=== PATIENT | female | born 1940 | race Caucasian/White ===

== ENCOUNTER 2018-11-21 05:49 | Observation (INO) ==
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
--- NOTE | 2018-11-21 07:32 | Diag Imaging Result Doc PS360 ---
CT HEAD/C-SPINE W/O CONTRAST - 11/21/2018 INDICATION: fell asleep and fell off toilet COMPARISON: 05/19/2018 FINDINGS: Head CT: There is a large left supraorbital scalp hematoma. No intracranial mass or hemorrhage. No skull fractures. The sinuses are clear. Cervical spine: Alignment is anatomic. Vertebral body heights are preserved. There is advanced multilevel disc degeneration with disc space narrowing. This is stable from prior. No fracture or subluxation. IMPRESSION: 1. Large left supraorbital forehead scalp hematoma. No intracranial injury. 2. Advanced cervical spondylosis. No injury to the cervical spine. This exam was performed using automated exposure control, adjustment of mA or kV according to patient size, and/or use of iterative reconstruction technique Electronically signed by Piter Ward 11/21/2018 7:30 AM
[2018-11-21] MEDS ORDERED: NS 2,000 ML MISC PRN (08:09)
--- NOTE | 2018-11-21 15:51 | Diag Imaging Result Doc PS360 ---
CT HEAD W/O CONTRAST - 11/21/2018 3:37 PM INDICATION: ams COMPARISON: 6:37 AM FINDINGS: There is no change from prior. No intracranial hemorrhage. IMPRESSION: No change from prior. This exam was performed using automated exposure control, adjustment of mA or kV according to patient size, and/or use of iterative reconstruction technique Electronically signed by Piter Ward 11/21/2018 3:48 PM
[2018-11-21 16:01] LABS: ALLEN TEST YES; BLOOD TYPE ARTERIAL; HCO3-(ACT) 31.1 mmoll (20.0-26.0); METHB 0.7 % (0.0-1.5); O2(CT) 14.8 mL/dL (15.0-23.0); O2HB 93.7 % (95.0-99.0); PCO2(98.6) 49 mmHg (35-45); PO2(98.6) 71 mmHg (60-100); SAMPLE BLOOD; SAO2 94.6 % (95.0-100.0); THB 11.2 g/dL (11.5-17.4); pH(98.6) 7.44 (7.35-7.45)
[2018-11-21 16:02] LABS: MODALITY ROOM AIR
[2018-11-21 17:10] LABS: BASO# 0.04 X1000 (0.0-0.2); BASO% 0.7 % (0.0-0.8); EOS# 0.15 X1000 (0.0-0.7); EOS% 2.6 % (0.0-10.0); HEMOGLOBIN 11.4 g/dL (12.0-16.0); LYMPH# 0.91 X1000 (1.2-3.4); LYMPH% 15.9 % (20.5-51.1); MCH 30.6 PG (27-31); MCHC 31.7 g/dL (33-37); MCV 96.5 FL (81-99); MONO% 10.5 % (1.7-9.3); MPV 9.4 FL (7.4-10.4); NEUT# 4.03 X1000 (1.4-6.5); NEUT% 70.3 % (42.2-75.2); PLT 129 X1000 (130-400); RBC 3.73 XMIL (4.2-5.4); RDW 13.4 % (11.5-14.5); WBC 5.73 X1000 (4.8-10.8)
--- NOTE | 2018-11-21 17:32 | Diag Imaging Result Doc PS360 ---
CHEST-PORTABLE - 11/21/2018 INDICATION: ams COMPARISON: 05/25/2018 FINDINGS: Lung volumes are much lower. There is some nonspecific central infiltrates bilaterally. Heart size remains top normal. IMPRESSION: Severely low lung volumes. Nonspecific central infiltrates. Electronically signed by Piter Ward 11/21/2018 5:30 PM
[2018-11-21 17:44] LABS: CALCIUM 7.9 mg/dL (8.8-10.2); POTASSIUM 3.7 mmol/L (3.5-5.1)
[2018-11-21] MEDS ORDERED: D50W SYRINGE ONE (18:03)
[2018-11-21] MEDS ORDERED: D50W SYRINGE IV ONE (18:25)
[2018-11-21] MEDS ORDERED: TYLENOL PO PRN (18:43)
[2018-11-21] MEDS ORDERED: ZOFRAN IV PRN (18:43)
[2018-11-21] MEDS ORDERED: NS 500 ML IV ONE (18:45)
[2018-11-21] MEDS ORDERED: D50W SYRINGE IV PRN (18:49)
[2018-11-21 19:13] LABS: BASO# 0.03 X1000 (0.0-0.2); BASO% 0.6 % (0.0-0.8); EOS# 0.14 X1000 (0.0-0.7); EOS% 2.6 % (0.0-10.0); HEMATOCRIT 38.8 % (37.0-47.0); IMM GRAN# 0.02 X1000 (0.0-0.04); IMM GRAN% 0.4 % (0.0-0.5); LYMPH# 0.95 X1000 (1.2-3.4); LYMPH% 17.6 % (20.5-51.1); MCH 30.4 PG (27-31); MCHC 30.9 g/dL (33-37); MCV 98.2 FL (81-99); MONO% 11.1 % (1.7-9.3); MPV 9.7 FL (7.4-10.4); NEUT# 3.66 X1000 (1.4-6.5); NEUT% 67.7 % (42.2-75.2); PLT 113 X1000 (130-400); RBC 3.95 XMIL (4.2-5.4); RDW 13.3 % (11.5-14.5)
[2018-11-21 19:27] LABS: INR 0.98; PROTIME 13.8 Seconds (11.0-16.0)
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
[2018-11-21 19:45] LABS: ALB/GLOB RATIO 1.2; ALBUMIN 3.6 g/dL (3.5-5.0); CALCIUM 7.9 mg/dL (8.8-10.2); CREATININE 3.2 mg/dL (0.5-0.9); MAGNESIUM 2.2 mg/dL (1.5-2.7); POTASSIUM 3.8 mmol/L (3.5-5.1); TOTAL BILIRUBIN 0.38 mg/dL (0.20-1.00); TOTAL PROTEIN 6.5 g/dL (6.3-8.3)
[2018-11-22] MEDS: MIRALAX PO SCH ×4 (00:24→21:36)
[2018-11-22] MEDS: COREG PO SCH ×3 (00:24→21:27)
[2018-11-22] MEDS: SYNTHROID PO SCH (06:23)
[2018-11-22 07:33] LABS: HEMOGLOBIN A1C 5.3 % (4.8-6.0)
[2018-11-22 07:55] LABS: FREE T4 1.16 ng/dL (0.93-1.70)
[2018-11-22] MEDS ORDERED: LOZOL PO SCH (09:00)
[2018-11-22] MEDS ORDERED: ULTRAM PO PRN ×2 (09:20→16:46)
[2018-11-22] MEDS: LOZOL PO SCH (09:28)
[2018-11-22] MEDS: CRESTOR PO SCH (09:29)
[2018-11-22] MEDS: ZYLOPRIM PO SCH (09:29)
[2018-11-22] MEDS: VESICARE PO SCH (09:29)
[2018-11-22] MEDS: ASPIRIN EC PO SCH (09:29)
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
[2018-11-22] MEDS: ADVAIR 250/50 DISKUS INH SCH ×2 (10:39→19:55)
[2018-11-22] MEDS ORDERED: CALMOSEPTINE OINTMENT TOP PRN (13:15)
[2018-11-22] MEDS: FLONASE NAS SCH (15:10)
--- NOTE | 2018-11-22 17:10 | PROGRESS NOTE ---
DATE: 11/21/2018 SUBJECTIVE: She says she just does not feel good. The main complaint is the pain from falling and I explained that we admitted her because she was very lethargic following dialysis and did not want to keep her sedated, but she just feels miserable. She is more awake and alert. OBJECTIVE: Temp 97.4 degrees, pulse 69, blood pressure 132/49. Pupils are equal and round. Lungs are clear in all lung jennings. Cardiovascular regular rate without murmur or S3. ASSESSMENT AND PLAN: Her blood sugars have come up, but the last couple were 54 and 86, so I am going to keep her here today. 1. End-stage renal disease. Dialysis Wednesdays and Monday. She did dialyze normally yesterday on Monday. We will plan on dialysis I guess tomorrow morning. 2. Status post fall. No intracranial bleed or injury, but she did have a good amount of ecchymosis. 3. Electrolytes and acid base and anemia appear to be pretty stable. She has had some hypoglycemia so we will make sure this comes up nicely. She is not getting any medication for her blood sugar at this time and I think I will change her now. I am going to continue watch her on pattern sugars and encourage her to eat. She is on a renal diet for pain. I guess I will try and increase the tramadol to 50 mg every 6 hours p.r.n. and see if that helps some. cc: Frank Em MD
[2018-11-22 17:11] LABS: URINE SOURCE CLEAN CATCH
[2018-11-22 17:14] LABS: BILIRUBIN URINE NEGATIVE (NEGATIVE); BLOOD URINE MODERATE (NEGATIVE); COLOR ORANGE; GLUCOSE URINE NEGATIVE (NEGATIVE); KETONE URINE NEGATIVE (NEGATIVE); LEUKOCYTES URINE LARGE (NEGATIVE); NITRITE URINE NEGATIVE (NEGATIVE); PH URINE 6.5; PROTEIN URINE 100 mg/dL (NEGATIVE); TURBIDITY URINE TURBID (CLEAR); UROBILINOGEN URINE 3 mg/dL (NORMAL)
[2018-11-22 17:29] LABS: UR EPITHELIAL CELLS >10 /HPF (<10); URINE BACTERIA 4+ /HPF; URINE RBC 20-40 /HPF (<10); URINE WBC TNTC /HPF (<10)
[2018-11-22 17:34] LABS: URINE CASTS NONE SEEN; URINE CRYSTALS NONE SEEN; URINE SMALL ROUND CELLS TRANS PRESENT; URINE YEAST NONE SEEN
[2018-11-22] MEDS ORDERED: ULTRAM PO SCH (21:00)
[2018-11-23] MEDS ORDERED: NS 2,000 ML MISC PRN (06:11)
[2018-11-23] MEDS ORDERED: TIGHT: 0.2 ML/HR FOR DIALYSIS MISC PRN (06:11)
[2018-11-23] MEDS ORDERED: HEPARIN IV PRN (06:11)
[2018-11-23] MEDS: SYNTHROID PO SCH (06:46)
[2018-11-23 08:03] VITALS: BP 99/54
[2018-11-23 08:06] LABS: CALCIUM 7.8 mg/dL (8.8-10.2); CREATININE 5.8 mg/dL (0.5-0.9); POTASSIUM 4.6 mmol/L (3.5-5.1)
[2018-11-23] MEDS: ADVAIR 250/50 DISKUS INH SCH (08:46)
[2018-11-23] MEDS: MIRALAX PO SCH (13:55)
[2018-11-23] MEDS: CRESTOR PO SCH (13:59)
[2018-11-23] MEDS: COREG PO SCH (13:59)
[2018-11-23] MEDS: LOZOL PO SCH (13:59)
[2018-11-23] MEDS: ASPIRIN EC PO SCH (13:59)
[2018-11-23] MEDS: VESICARE PO SCH (13:59)
[2018-11-23] MEDS: FLONASE NAS SCH (14:00)
[2018-11-23] MEDS: ZYLOPRIM PO SCH (14:01)
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
--- NOTE | 2018-11-23 15:47 | NEPHROLOGY PROGRESS NOTE ---
DATE: 11/23/2018 SUBJECTIVE: Patient resting in bed. Her ecchymosis has spread to both eyes. OBJECTIVE: Vital Signs: Temperature 97.9 degrees, pulse 65, respiratory rate 16, blood pressure 99/54. Intake and output have not been documented. General: On exam, elderly female resting in bed. She is in no acute distress. HEENT: Normocephalic. She has ecchymoses, bilateral eyes. Continues with hematoma to the left forehead. Her swelling is improved to the left orbit. Neck: Supple. Cardiovascular: Regular rate and rhythm. Pulmonary: Clear. Equal excursion. Abdomen: Soft. : Not inspected. Dialysis assist. Extremities: No clubbing, cyanosis, or edema. Integumentary: Skin is warm and dry otherwise. ASSESSMENT AND PLAN: 1. End-stage renal disease management. Today is her routine dialysis day. She will dialyze on a 2 potassium bath/ultrafiltration to dry weight 4 hour treatment. She can be discharged after her treatment. 2. Status post fall. Bruising with possible concussion. Followed by primary. Dictated by JED Moody for Perry El MD Face to face encounter, data reviewed, discussed with Steffanie Gil on 11/23/18. I agree with the above assessment and plan of care. cc: Perry El MD [facility]
== END 2018-11-23 16:45 | disposition home or self-care (01) ==
LOC: SUPCPDRO → EDIPHOLD 05:49 → ED 05:49 → 3N 22:34
PROVIDERS: ATTEND Emergency Medicine
CPT/HCPCS: 70450; 71010; 71045; 72125; 80048; 80053; 81001; 82607; 82746; 82805; 82948; 83036; 83735; 84439; 84443; 85025; 85610; 85730; 87077; 87088; 87186; 94640; 94761; 96374; 96376; 99285; A9270; G0378; J7030; J7040; XXXXX

== ENCOUNTER 2018-11-25 18:54 | Inpatient (IN) ==
[2018-11-25 19:59] LABS: BASO# 0.03 X1000 (0.0-0.2); BASO% 0.6 % (0.0-0.8); EOS% 4.3 % (0.0-10.0); HEMATOCRIT 34.9 % (37.0-47.0); HEMOGLOBIN 10.8 g/dL (12.0-16.0); LYMPH# 0.95 X1000 (1.2-3.4); LYMPH% 20.2 % (20.5-51.1); MCH 30.1 PG (27-31); MCHC 30.9 g/dL (33-37); MCV 97.2 FL (81-99); MONO# 0.37 X1000 (0.11-0.59); MONO% 7.9 % (1.7-9.3); MPV 9.8 FL (7.4-10.4); NEUT# 3.15 X1000 (1.4-6.5); PLT 117 X1000 (130-400); RBC 3.59 XMIL (4.2-5.4)
--- NOTE | 2018-11-25 19:59 | Diag Imaging Result Doc PS360 ---
EXAM: CHEST-1 VIEW HISTORY: ams TECHNIQUE: Chest single view COMPARISON: None. FINDINGS: The lungs are well expanded. The heart is mildly prominent. The vessels are not distended. There are no infiltrates. No effusion identified. IMPRESSION: Mildly prominent heart, otherwise negative exam Electronically signed by Kevin Villarreal 11/25/2018 7:57 PM
[2018-11-25 20:29] LABS: ALB/GLOB RATIO 1.7; ALBUMIN 3.8 g/dL (3.5-5.0); CALCIUM 8.1 mg/dL (8.8-10.2); MAGNESIUM 2.2 mg/dL (1.5-2.7); PHOSPHORUS 4.2 mg/dL (2.7-4.5); TOTAL BILIRUBIN 0.32 mg/dL (0.20-1.00); TOTAL PROTEIN 6.1 g/dL (6.3-8.3)
--- NOTE | 2018-11-25 20:31 | Diag Imaging Result Doc PS360 ---
EXAM: CT HEAD W/O CONTRAST HISTORY: fall TECHNIQUE: Emergency CT of the head without contrast COMPARISON: 11/21/2018 FINDINGS: Left scalp hematoma is unchanged from the prior exam. No parenchymal hemorrhage. No epidural or subdural hematoma. No subarachnoid hemorrhage. There are chronic microvascular ischemic changes. No mass identified on this noncontrasted exam. No hydrocephalus. No sinus opacification. IMPRESSION: No intracranial hemorrhage. No change. This exam was performed using automated exposure control, adjustment of mA or kV according to patient size, and/or use of iterative reconstruction technique. Electronically signed by Kevin Villarreal 11/25/2018 8:28 PM
[2018-11-25 20:34] LABS: CREATININE 6.1 mg/dL (0.5-0.9)
[2018-11-25] MEDS ORDERED: APRESOLINE IV ONE (20:43)
[2018-11-25 21:21] LABS: URINE SOURCE CATH
[2018-11-25 21:23] LABS: BILIRUBIN URINE NEGATIVE (NEGATIVE); BLOOD URINE SMALL (NEGATIVE); COLOR ORANGE; GLUCOSE URINE NEGATIVE (NEGATIVE); KETONE URINE NEGATIVE (NEGATIVE); LEUKOCYTES URINE LARGE (NEGATIVE); NITRITE URINE NEGATIVE (NEGATIVE); PROTEIN URINE 30 mg/dL (NEGATIVE); TURBIDITY URINE HAZY (CLEAR); UROBILINOGEN URINE 3 mg/dL (NORMAL)
[2018-11-25 21:24] LABS: UR EPITHELIAL CELLS <10 /HPF (<10); URINE BACTERIA 4+ /HPF; URINE RBC <10 /HPF (<10); URINE WBC TNTC /HPF (<10)
[2018-11-25] MEDS ORDERED: LEVAQUIN 500 MG/D5W 500 MG/100 ML IVPB IV ONE (21:40)
--- NOTE | 2018-11-25 21:49 | PROVIDER DOCUMENTATION ---
This chart was entered by Lillie Quintana Scribe, acting as scribe for Rocco Trinh MD. HPI-Neurological Disorder - General Chief Complaint: Altered Mental Status Stated Complaint: DECREASED LOC Time Seen by Provider: 11/25/18 19:08 Source: family, EMS Allergies/Adverse Reactions: Patient Allergies Allergy/AdvReac Type Severity Reaction Status Date / Time Iodinated Contrast- Oral and Allergy Severe ANAPHYLAXIS Verified 11/25/18 20:05 IV Dye Sulfa (Sulfonamide Allergy Intermediate RASH Verified 11/25/18 20:05 Antibiotics) erythromycin base AdvReac Severe AMS Verified 11/25/18 20:05 [Erythromycin Base] Home Medications: Home Medication List Medication Instructions Recorded Confirmed Last Taken Type Carvedilol C.r. [Coreg Cr] 12.5 mg PO BID 11/16/13 11/25/18 11/25/18 History Fluticasone/Salmeterol [Advair 250 mg INH BID 11/16/13 11/25/18 11/25/18 History 250-50 Diskus] ROSUVAstatin [Crestor] 20 mg PO DAILY 11/16/13 11/25/18 11/25/18 History Raloxifene [Evista] 60 mg PO DAILY 11/16/13 11/25/18 11/25/18 History Solifenacin Succinate [Vesicare] 5 mg PO DAILY 11/16/13 11/25/18 11/25/18 H istory Allopurinol 100 mg PO DAILY 04/04/16 11/25/18 11/25/18 History Fluticasone 50 Mcg Nasal Crestline 2 spray ARYAN DAILY 04/04/16 11/25/18 11/25/18 History [Flonase] Indapamide 2.5 mg PO DAILY 04/04/16 11/25/18 11/25/18 History Montelukast Sodium [Singulair] 10 mg PO DAILY 04/04/16 11/25/18 11/25/18 History Docusate Sodium [Colace] 100 mg PO DAILY PRN #20 cap 10/21/17 11/25/18 11/25/18 Rx Aspirin EC 81 mg PO DAILY #30 tablet 05/28/18 11/25/18 11/25/18 Rx Levothyroxine [Synthroid] 50 microgm PO ACB tablet 05/28/18 11/25/18 11/25/18 Rx Polyethylene Glycol 3350 [Miralax] 17 gm PO BID powder, packet 05/28/18 11/25/18 11/25/18 Rx Zolpidem [Ambien] 5 mg PO HS PRN PRN tablet 05/28/18 11/25/18 11/25/18 Rx Tramadol [Ultram] 50 mg PO Q6H PRN PRN 5 Days #20 tab 11/23/18 11/25/18 11/25/18 Rx - History of Present Illness-Neuro Nature of Presenting Problem: 78yof presents to ED by EMS cc AMS today. EMS reports pt fell Monday, was admitted to hospital, discharged on Monday had her HD. Son is at bedside and reports he talked with pt yesterday and she was baseline but today she has AMS. Pt is c/o headache. Pt has hx of DM, HTN,ESRD M-W-F, and CVA. Severity: reports: moderate, severe Timing: reports: still present Context: reports: head injury, falling Character of Altered Mental Status: reports: decreased responsiveness. denies: combative, agitated Any recent trauma/injury?: reports: to head Character of Deficits: reports: new weakness New weakness or altered sensation location:: reports: RUE Associated Symptoms: reports: headache, slurred speech Similar Symptoms Previously?: No Recently seen or treated by another doctor?: Yes Review of Systems - Adult - REVIEW OF SYSTEMS - ADULT Constitutional: reports: see HPI, fatique. denies: chills, fever Eyes: reports: no symptoms reported Ears, Nose, Mouth & Throat: reports: no symptoms reported Cardiovascular: reports: no symptoms reported Respiratory: reports: no symptoms reported Gastrointestinal: reports: no symptoms reported Genitourinary: reports: no symptoms reported Musculoskeletal: reports: no symptoms reported Integumentary: reports: no symptoms reported Neurological: reports: see HPI, headache/migraines, loss of balance, other (altered mental status) Psychiatric: reports: no symptoms reported Endocrine: reports: no symptoms reported Hematologic/Lymphatic: reports: no symptoms reported Allergic/Immunologic: reports: no symptoms reported All Other Systems: Reviewed and Negative Past History - Adult - PAST MEDICAL HISTORY-ADULT Review of Records: reports: Old Records Reviewed, Nursing Assessment Review, Medications Reviewed, Social history reviewed & non-contributory. Major Childhood Illnesses: reports: denies history Cardiovascular: reports: HTN Respiratory: reports: asthma Gastrointestinal: reports: GERD, other Obstetrical/Gynecological: reports: denies history Genitourinary: reports: dialysis, ESRD, kidney disease Musculoskeletal: reports: arthritis, chronic pain, spinal fracture Neurological: reports: CVA Psychiatric: reports: denies history Endocrine/Immune: reports: denies history Other Conditions: reports: denies history - PRIOR SURGERIES/PROCEDURES Surgical/Procedure History: reports: appendectomy, hysterectomy, other (bladder reconstrution) - IMMUNIZATION STATUS Childhood Immunizations: See Nurse Assessment Flu Vaccine: See Nurse Assessment - FAMILY HISTORY Family History: CAD over 55 yo, HTN, other (father AAA) Physical Exam- Neurological - Physical Exam-Neuro Initial Vital Signs Reviewed: Yes General Appearance: negative: anxious, combative Eye Exam: bilateral eye: normal inspection, PERRL HENMT: moist mucous membranes, normal ENT inspection. negative: angioedema Head Injury: contusions (left sikhism and right side of face), ecchymosis (bilateral eyes), raccoon eyes, tenderness (left sikhism) Neck: non-tender. negative: Brudzinski's sign Respiratory: chest non-tender, lungs clear, normal breath sounds, no pleuratic chest pain, no respiratory distress, no accessory muscle use. negative: crackle s, rales, rhonchi Cardiovascular: normal peripheral pulses, regular rate, rhythm, no edema, no gallop, no JVD, no murmur. negative: bradycardia, tachycardia Abdominal Exam: normal bowel sounds, non tender, soft, no organomegaly. negative: rigid, rebound, tenderness Lymphatic: no adenopathy. negative: striations Extremity: normal inspection. negative: deformity extractor puller Exam: normal hearing, PERRL Coordination/Gait: abnormal gait Motor/Sensory: no sensory deficit, no pronator drift, weak motor strength RUE. negative: no motor deficit, weak motor strength LUE, weak motor strength RLE, weak motor strength LLE Neurologic: abnormal extractor puller II-XII, abnormal gait, aphasia, motor weakness. negative: facial droop, focal weakness, sensory deficit Integumentary: warm/dry, other (skin is extremely tanned). negative: diaphoresis, jaundice Psych/Mental Status: negative: anxious Progress - PLAN OF CARE/RESULTS Progress/Plan/Lab Results: Vital Signs - 8 hr 11/25/18 19:05 11/25/18 19:13 11/25/18 19:20 Temperature 98.4 F Pulse Rate 71 70 Respiratory Rate 17 14 Blood Pressure 152/82 O2 Sat by Pulse Oximetry 100 98 96 11/25/18 19:30 11/25/18 19:40 11/25/18 19:55 Temperature Pulse Rate 69 72 77 Respiratory Rate 15 17 17 Blood Pressure O2 Sat by Pulse Oximetry 98 97 100 11/25/18 20:00 11/25/18 20:01 11/25/18 20:03 Temperature Pulse Rate 70 72 70 Respiratory Rate 15 21 15 Blood Pressure 149/79 138/86 O2 Sat by Pulse Oximetry 98 98 97 11/25/18 20:10 11/25/18 20:18 11/25/18 20:20 Temperature Pulse Rate 70 68 67 Respiratory Rate 15 17 15 Blood Pressure 143/83 O2 Sat by Pulse Oximetry 98 98 98 11/25/18 20:30 11/25/18 20:33 11/25/18 20:40 Temperature Pulse Rate 67 66 67 Respiratory Rate 17 14 17 Blood Pressure 147/75 O2 Sat by Pulse Oximetry 100 99 99 Laboratory Results - last 24 hr 11/25/18 11/25/18 11/25/18 19:25 19:25 19:25 WBC 4.70 L RBC 3.59 L Hgb 10.8 L Hct 34.9 L MCV 97.2 MCH 30.1 MCHC 30.9 L RDW Std Deviation 13.0 Plt Count 117 L MPV 9.8 Immature Gran % (Auto) 0.0 Neut % (Auto) 67.0 Lymph % (Auto) 20.2 L Mchenry % (Auto) 7.9 Eos % (Auto) 4.3 Baso % (Auto) 0.6 Immature Gran # (Auto) 0.00 Neut # (Auto) 3.15 Lymph # (Auto) 0.95 L Mchenry # (Auto) 0.37 Eos # (Auto) 0.20 Baso # (Auto) 0.03 Sodium 141 Potassium 5.0 Chloride 99 Carbon Dioxide 29 Anion Gap 13 BUN 30 H Creatinine 6.1 H Estimated GFR/1.73 m2 7 BUN/Creatinine Ratio 5 Glucose 164 H Calculated Osmolality 291 Calcium 8.1 L Phosphorus 4.2 Magnesium 2.2 Total Bilirubin 0.32 AST 24 ALT 16 Alkaline Phosphatase 67 Creatine Kinase 62 Troponin T 0.022 Total Protein 6.1 L Albumin 3.8 Globulin 2.3 Albumin/Globulin Ratio 1.7 Urine Source Urine Color Urine Turbidity Urine pH Ur Specific [place] Urine Protein Ur Glucose (Stick) Ur Ketones (Stick) Urine Blood Urine Nitrite Urine Bilirubin Urobilinogen Dipstick Urine Leukocytes Urine WBC (Auto) Urine RBC (Auto) U Epithel Cells (Auto) Urine Bacteria (Auto) 11/25/18 21:15 WBC RBC Hgb Hct MCV MCH MCHC RDW Std Deviation Plt Count MPV Immature Gran % (Auto) Neut % (Auto) Lymph % (Auto) Mchenry % (Auto) Eos % (Auto) Baso % (Auto) Immature Gran # (Auto) Neut # (Auto) Lymph # (Auto) Mchenry # (Auto) Eos # (Auto) Baso # (Auto) Sodium Potassium Chloride Carbon Dioxide Anion Gap BUN Creatinine Estimated GFR/1.73 m2 BUN/Creatinine Ratio Glucose Calculated Osmolality Calcium Phosphorus Magnesium Total Bilirubin AST ALT Alkaline Phosphatase Creatine Kinase Troponin T Total Protein Albumin Globulin Albumin/Globulin Ratio Urine Source CATH Urine Color ORANGE Urine Turbidity HAZY Urine pH 7.0 Ur Specific [place] 1.000 Urine Protein 30 A Ur Glucose (Stick) NEGATIVE Ur Ketones (Stick) NEGATIVE Urine Blood SMALL A Urine Nitrite NEGATIVE Urine Bilirubin NEGATIVE Urobilinogen Dipstick 3 A Urine Leukocytes LARGE A Urine WBC (Auto) TNTC A Urine RBC (Auto) <10 U Epithel Cells (Auto) <10 Urine Bacteria (Auto) 4+ Orders Category Date Time Status Saline Loc NOW Care 11/25/18 19:07 Active CHEST-1 VIEW [RAD] Stat Exams 11/25/18 19:[address] HEAD W/O CONTRAST [CT] Stat Exams 11/25/18 18:59 Completed CBC WITH ELECTRONIC DIFF [HEME] Stat Lab 11/25/18 19:25 Completed CK PROFILE [SP CHEM] Stat Lab 11/25/18 19:25 Completed COMPREHENSIVE METABOLIC PANEL [CHEM] Stat Lab 11/25/18 19:25 Completed MAGNESIUM [CHEM] Stat Lab 11/25/18 19:25 Completed PHOSPHORUS [CHEM] Stat Lab 11/25/18 19:25 Completed TROPONIN T Stat Lab 11/25/18 19:25 Completed URINALYSIS W/POSS RFLX CULT [URINALYSIS] Stat Lab 11/25/18 21:15 Completed URINE CULTURE [RM] Routine Lab 11/25/18 21:36 Received Hydralazine [Apresoline] Med 11/25/18 20:43 Discontinued 10 mg IV NOW ONE Levofloxacin 500 mg/D5w [Levaquin 500 mg/D5w] Med 11/25/18 21:40 Active 500 mg in 100 ml IV NOW EKG [EKG] Stat Ther 11/25/18 19:07 Ordered A/P: AMS secondary to UTI. Spoke with Dr duckworth and Dr Dawn to admit pt. Result Diagrams: 11/25/18 19:25 11/25/18 19:25 - EKG 1 Time of EKG reading by physician:: 19:20 EKG Read and Signed by:: Rocco Trinh EKG Interpretation (*Must complete 3 of following elements*): Abnormal (possible inferior infarct. age undetermined) Howell: left QRS: LVH (moderate voltage criteria, may be normal variant) - XRAY 1 XRAY: Bilateral XRAY Study: Chest Impression: See EMR Report (IMPRESSION: Mildly prominent heart, otherwise nega tive exam Electronically signed by Kevin Villarreal 11/25/2018 7:57 PM) - CT/MRI 1 CT Study: Head Impression: See EMR Report (IMPRESSION: No intracranial hemorrhage. No change. This exam was performed using automated exposure control, adjustment of mA or kV according to patient size, and/or use of iterative reconstruction technique. Electronically signed by Kevin Villarreal 11/25/2018 8:28 PM) - CONSULTS/PCP/HOSPITALIST Notification #1 *Consult/PCP/Hospitalist*: Dr Duckworth DESPATCHING AND RECEIVING CLERK Time Discussed: 21:41 Consult Disposition: Admit #2 Consult: Dr Dawn Time Discussed: 21:41 Consult Disposition: Admit Departure - Departure Date of Disposition Decision: 11/25/18 Time of Disposition Decision: 21:43 DIAGNOSIS: Altered mental status, UTI (urinary tract infection) Disposition: ADMITTED INPATIENT 09 Certified Medical Emergency: Emergent Condition: Stable Additional Freetext Instructions: We have examined and treated you today on an emergency basis only. This was not a substitute for, or an effort to provide, complete medical care. In most cases, you must let your doctor check you again. Tell your doctor about any new or lasting problems. We cannot recognize and treat all injuries or illnesses in one Emergency Department visit. If you had special tests, such as X-rays or CT scans, will be reviewed by radiologist and will call you if there are any new suggestions Follow up with primary care provider in 1 to 2 days if no improvement. If you do not have a primary care provider, you need to choose one as soon as possible. Take medicines as prescribed. Monitor for any side effects or adverse events from medications. If any side effect, adverse event or rash develops, or if you suspect any other adverse reaction to the medication, then discontinue the medication immediately and contact clinic /PCP or go to the nearest ER. Narcotic meds / sedative meds instruction - patent advised not to drive, operate any machinery or go into water after taking meds as it may impair mental ability to react to the situation in an appropriate manner. Continue other current medicines. Follow up with PCP within 24-48 hours, or s ooner if symptoms worsen or fail to improve. Patient / guardian verbalizes understanding of treatment plan, medication, and side effects and agrees with treatment plan. Patient leaves ER in stable condition and ambulatory state. Return to ER as needed. Discharge instructions reviewed verbally and given to patient in written form. Follow up with primary care provider. Referrals and Follow-Ups: Derian Dawn MD [Primary Care Provider] - - Critical Care Note This patient required my direct & personal management of CC.: No Attestation - Physician/ JG Attestation Patient care was provided by Advanced Practice Provider:: No The physician spent face to face time with patient:: Yes Advanced Practice Provider documentation review:: Supervising physician onsite and consulted in the evaluation and care of this patient. The physician did have a face to face encounter with the patient. - NIH Stroke Scale NIH Type: Initial Evaluation Level of Consciousness: 1-Drowsy, but arousable with minimal stimulation LOC Questions (ask month and age): 1-Answers One Correctly Best Gaze (horizontal eye movement): 0-Normal Visual (use finger movement, counting or visual threat): 0-No Visual Loss Facial Palsy (show teeth or raise eyebrows & close eyes tght: 0-Symmetrical Movement Motor Function-left arm: 0-Normal Motor Function-right arm: 2-Some Effort Against [place] Motor Function-left le-Normal Motor Function-right le-Normal Limb Ataxia(rvpmit-mvcs-twxfad, or heel to agrawal): 0-No Ataxia Sensory(pin prick to face,arms,trunk,legs-compare side/side): 0-No Ataxia Best Language(name item/read sentence.Ex-Down to Earth): 0-No Aphasia Dysarthria(Pt read words or say words Ex.Mama,Tip-Top,Thanks: 0-Normal Articulation Extinction and Inattention: 1-Partial Neglect This chart was documented by the indicated scribe, (Lillie Quintana, Scribe) and accurately reflects the services I performed and decisions made by me, Rocco Trinh MD, as attested by the provider's signature.
[2018-11-25] MEDS ORDERED: AMBIEN PO PRN (21:59)
[2018-11-25] MEDS ORDERED: COLACE PO PRN (21:59)
[2018-11-25] MEDS ORDERED: ZOFRAN IV PRN (22:03)
[2018-11-25] MEDS ORDERED: ULTRAM PO ONE (22:10)
[2018-11-25 22:54] LABS: HEMOGLOBIN A1C 5.4 % (4.8-6.0)
[2018-11-25] MEDS: ROCEPHIN 1 GM in NS 50 ML IV SCH (23:20)
[2018-11-25] MEDS: HEPARIN SUBQ SCH (23:21)
[2018-11-26] MEDS: ULTRAM PO PRN ×3 (00:05→20:07)
[2018-11-26] MEDS: TYLENOL PO PRN (03:16)
[2018-11-26] MEDS: HUMALOG SUBQ SCH ×4 (06:06→22:00)
[2018-11-26] MEDS: SYNTHROID PO SCH (06:09)
[2018-11-26 06:29] LABS: BASO# 0.02 X1000 (0.0-0.2); BASO% 0.4 % (0.0-0.8); HEMATOCRIT 34.4 % (37.0-47.0); HEMOGLOBIN 10.5 g/dL (12.0-16.0); LYMPH# 0.87 X1000 (1.2-3.4); LYMPH% 17.5 % (20.5-51.1); MCH 29.9 PG (27-31); MCHC 30.5 g/dL (33-37); MONO# 0.34 X1000 (0.11-0.59); MONO% 6.8 % (1.7-9.3); MPV 9.6 FL (7.4-10.4); NEUT# 3.54 X1000 (1.4-6.5); NEUT% 71.3 % (42.2-75.2); PLT 116 X1000 (130-400); RBC 3.51 XMIL (4.2-5.4); WBC 4.97 X1000 (4.8-10.8)
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
[2018-11-26 07:04] LABS: CALCIUM 7.8 mg/dL (8.8-10.2); POTASSIUM 4.6 mmol/L (3.5-5.1)
[2018-11-26 07:11] LABS: CREATININE 6.4 mg/dL (0.5-0.9)
--- NOTE | 2018-11-26 07:14 | EKG Report ---
Test Performed on : 11/25/2018 7:19:38 PM Test Reason : ams Blood Pressure : / mmHG Vent. Rate : 070 BPM Atrial Rate : 070 BPM P-R Int : 206 ms QRS Dur : 070 ms QT Int : 418 ms P-R-T Axes : 061 -31 -02 degrees QTc Int : 451 ms Normal sinus rhythm. Left axis deviation Moderate voltage criteria for LVH, may be normal variant Possible Inferior infarct , age undetermined Abnormal ECG When compared with ECG of 19-MAY-2018 12:28, No significant change was found Unconfirmed Result
[2018-11-26] MEDS ORDERED: TIGHT: 0.2 ML/HR FOR DIALYSIS MISC PRN (07:34)
[2018-11-26] MEDS ORDERED: NS 2,000 ML MISC PRN (07:34)
[2018-11-26] MEDS ORDERED: HEPARIN IV PRN (07:34)
[2018-11-26] MEDS: ZYLOPRIM PO SCH (08:11)
[2018-11-26] MEDS: EVISTA PO SCH (08:11)
[2018-11-26] MEDS: SINGULAIR PO SCH (08:11)
[2018-11-26] MEDS: CRESTOR PO SCH (08:12)
[2018-11-26] MEDS: VESICARE PO SCH (08:12)
[2018-11-26] MEDS: COREG PO SCH ×2 (08:12→21:59)
[2018-11-26] MEDS: ASPIRIN EC PO SCH (08:12)
[2018-11-26] MEDS: LOZOL PO SCH (08:12)
[2018-11-26] MEDS ORDERED: LOZOL PO SCH (09:00)
[2018-11-26] MEDS: HEPARIN SUBQ SCH ×2 (11:14→21:59)
--- NOTE | 2018-11-26 13:51 | PROGRESS NOTE ---
DATE: 11/26/2018 SUBJECTIVE: Patient is definitely more alert and awake. She reports that she had a fall a few days ago. She is oriented in place, person, not in time. She reports having some headaches. OBJECTIVE: Temperature 97.6 degrees, heart rate 76, respiratory rate 12, blood pressure 112/55, O2 saturation 96% on room air .General: This is a chronically ill-appearing 78-year-old female lying in bed in no acute distress. HEENT: There was hematoma noted in the left frontal area along with ecchymosis in both eyes and also right side of the face as well. Pupils equal, round, reactive to light and accommodation. Neck: No JVD noted. No carotid bruit, no lymphadenopathy, no thyromegaly. Cardiovascular: S1-S2 heard. No murmurs, gallops, or rubs. Regular rate and rhythm. Respiratory: Clear bilaterally to auscultation. No work of breathing or using accessory muscles. Abdomen: Soft, nontender to palpation. Bowel sounds present. No organomegaly. Extremities: No clubbing, cyanosis, mild edema in both lower extremities. Neurological: The patient is oriented in person, place but not in time, moves 4 extremities spontaneously. LABORATORY DATA: White cell count 4.97, hemoglobin 10.5, hematocrit. 34.4, platelets 116,000. We did BMP unremarkable except elevation of creatinine and BUN 33 compatible with her chronic kidney disease on dialysis. ASSESSMENT AND PLAN: 1. Encephalopathy secondary to urinary tract infection. Patient is a little bit more awake today, patient received Rocephin, so far urine culture has show gram-negative rods. Will continue with the same medications. 2. Hypothyroidism, will continue with Synthroid. 3. Hyperlipidemia, will continue Crestor. 4. Diabetes mellitus type 2. Continue with Accu-Chek before meals and also at bedtime and sliding scale insulin as well. 5. End-stage renal disease on dialysis Monday, Monday, Monday. Patient is now receiving dialysis, Dr. El has been consulted for medical management. cc: Jose Ruth MD
--- NOTE | 2018-11-26 14:11 | NEPHROLOGY CONSULTATION ---
DATE: 11/26/2018 REASON FOR ADMISSION: Altered mental status, UTI. REASON FOR CONSULTATION: Assist with management, ESRD. CONSULTING PHYSICIAN: Dr. Dawn. HISTORY OF PRESENT ILLNESS: 78-year-old female well known to our service for end-stage renal disease. She was recently admitted to the hospital secondary to a significant fall at home. After she was discharged from the hospital at that time the family noticed that she has become more confused and was brought into the hospital secondary to that. In the ER she was found to have a UTI. She underwent imaging which was negative for any bleed or other abnormality. We have been asked to see her to assist with management her end-stage renal disease. PAST MEDICAL HISTORY: End-stage renal disease Monday, Monday, Monday, diabetes, hypertension, hypothyroidism, GERD, incontinence, neuropathy, history of TIA, chronic anemia. SURGICAL HISTORY: She has AV fistula left upper extremity, appendectomy, facial surgery, tibia- fibula fracture with ORIF, she has had a bladder reconstruction. ALLERGIES: Please see chart for complete list but these do include sulfa, erythromycin and iodine contrast. HOME MEDICATIONS: Listed as Evista, Advair, carvedilol, Crestor, VESIcare , Flonase, Singulair, allopurinol, Colace, levothyroxine, MiraLAX, Ambien, aspirin, tramadol, indapamide. FAMILY HISTORY: Noncontributory. SOCIAL HISTORY: No ETOH, tobacco, illicit drug use. Does live at home. REVIEW OF SYSTEMS: Altered mental status. PHYSICAL EXAM: Vital Signs: Temperature 99.8 degrees, pulse 75, respiratory 16, blood pressure 136/57, intake not measured, output 20 mL. General: Elderly female sitting up in bed. She is awake and alert. She appears somewhat anxious but is in no acute distress. HEENT: Normocephalic. She has significant ecchymosis bilateral orbits and down the left faith side of the face into the neck from her previous fall. Oral mucosa moist. Neck: Supple. No JVD. Cardiovascular: Regular rate. Pulmonary: Clear bilaterally. Abdomen: Soft, positive bowel sounds. : Not inspected. Extremities: No clubbing, cyanosis. She has trace lower extremity edema, is moving all extremities. Integument: Skin is pale, warm and dry. LAB DATA: WBC 4.9, hemoglobin 10.5, sodium 140, potassium 4.6, CO2 28, creatinine 6.4. ASSESSMENT AND PLAN: 1. Chronic kidney disease 5D, today is her routine dialysis day. She will dialyze on a 2 K bath/UF to dry weight/4-hour treatment. 2. Urinary tract infection, she is currently on Rocephin, no changes needed to be made to this. 3. Electrolytes, acid-base balance, anemia, these are all stable. Continue to monitor and adjust dialysis bath as warranted. Dictated by JED Moody for Perry El MD Face to face encounter, data reviewed, discussed with Steffanie Gil on 11/26/18. I agree with the above assessment and plan of care. cc: Perry El MD MTD
[2018-11-26] MEDS: FLONASE NAS SCH (15:58)
[2018-11-26] MEDS: MIRALAX PO SCH ×2 (15:59→22:00)
[2018-11-26] MEDS: ADVAIR 250/50 DISKUS INH SCH ×2 (19:39→19:51)
[2018-11-26] MEDS: ROCEPHIN 1 GM in NS 50 ML IV SCH (22:00)
[2018-11-27] MEDS: TYLENOL PO PRN (02:49)
[2018-11-27] MEDS: HUMALOG SUBQ SCH (06:07)
[2018-11-27] MEDS: SYNTHROID PO SCH (06:07)
[2018-11-27] MEDS: LOZOL PO SCH (08:44)
[2018-11-27] MEDS: EVISTA PO SCH (08:44)
[2018-11-27] MEDS: ZYLOPRIM PO SCH (08:44)
[2018-11-27] MEDS: COREG PO SCH (08:45)
[2018-11-27] MEDS: VESICARE PO SCH (08:45)
[2018-11-27] MEDS: ASPIRIN EC PO SCH (08:45)
[2018-11-27] MEDS: SINGULAIR PO SCH (08:45)
[2018-11-27] MEDS: CRESTOR PO SCH (08:45)
[2018-11-27] MEDS: MIRALAX PO SCH (08:46)
[2018-11-27] MEDS: FLONASE NAS SCH (09:03)
[2018-11-27] MEDS: ADVAIR 250/50 DISKUS INH SCH (10:07)
[2018-11-27] MEDS: HEPARIN SUBQ SCH (10:46)
--- NOTE | 2018-11-27 14:23 | NEPHROLOGY PROGRESS NOTE ---
DATE: 11/27/2018 DATE AND TIME: Date seen 11/27/2018, time seen 0700. SUBJECTIVE: Ms. Robles is resting quietly in bed. Head of the bed is elevated. She is sitting up. She states that she is feeling better. OBJECTIVE: Her most recent vital signs: Temperature 98.2, blood pressure 123/51, heart rate 64, respirations 15. She is on room air. Last recorded saturation 95%. She has had 240 in. She has had 608 mL out. LABORATORY: Patient's most recent labs: Last drawn hemoglobin of 10.5, potassium of 4.6. PHYSICAL EXAMINATION: General: This is an 78-year-old white female resting quietly in bed. Head of the bed is elevated. No acute distress. Skin: Warm and dry. HEENT: The patient has a large hematoma with significant ecchymosis to bilateral orbits down the left temporal side into the neck from a previous fall. Pupils are equal and reactive to light. Mucous membranes are moist. Neck: Supple. Trachea midline. No evidence of JVD. Cardiovascular: She is regular rate and rhythm. Lungs: Clear to auscultation bilaterally. Equal excursion on room air. Abdomen: Soft, nontender. Positive bowel sounds. Genitourinary: Not inspected. Extremities: Have no edema. No clubbing or cyanosis. Integumentary: Pale, warm and dry with ecchymosis to her left face and bilateral orbit secondary to fall. ASSESSMENT AND PLAN: 1. Chronic kidney disease stage 5D. The patient is due for her routine dialysis treatment in the a.m. No indications for intervention. 2. Electrolytes and acid-base balance. These have been acceptable. 3. Anemia. This is close to target. 4. Urinary tract infection. Patient has been on ceftazidime. We will change this to Ceftaz after her dialysis treatments 1 g to be continued on an outpatient basis. We will stop her IV fluid and take out her IV today. I would like to thank you for allowing us to follow with this patient condition. Dictated by JED Ram for Perry El MD Face to face encounter, data reviewed, discussed with Laura Lazar on 11/27/18. I agree with the above assessment and plan of care. cc: JED Ramdish, MD [facility]
--- NOTE | 2018-11-27 14:37 | DISCHARGE SUMMARY ---
ADMISSION DATE: 11/25/2018 DISCHARGE DATE: 11/27/2018 DISCHARGE DIAGNOSES: 1. Metabolic encephalopathy, resolved. 2. Urinary tract infection, under treatment. 3. Hypothyroidism. 4. Hyperlipidemia. 5. End stage renal disease, on dialysis. 6. Diabetes mellitus type 2. CONSULTATIONS: Dr. Perry El from Nephrology. PROCEDURES: 1. CT of the head showed no intracranial hemorrhage. No change. 2. Chest x-ray showed mild prominent heart, but otherwise negative exam. HOSPITAL COURSE: Patient is an 78-year-old female who was recently admitted to the hospital. She was home for 2 days. She has history of end-stage renal disease, with dialysis. Apparently, she was brought to the emergency department because she was disoriented in time and place. She was admitted to the hospital for further evaluation and treatment. Then, we found out that she had a urinary tract infection. We isolated E. coli that is sensitive to ceftriaxone, so patient is about to be discharged. We have talked with Dr. El about antibiotics we agreed to do 1 g of Rocephin after dialysis for at least a couple weeks. The patient is going to be discharged in stable condition. PHYSICAL EXAMINATION ON DISCHARGE: Vital Signs: Temperature 98.1, heart rate 72, respiratory rate 20, blood pressure 123/99. O2 sat 97% on room air. General: This is a chronically ill- appearing 78-year-old female lying in bed, in no acute distress. HEENT: Head is normocephalic with contusions and ecchymosis and hematoma noted in the left side of the front. There is also bilateral ecchymoses as well. The patient is not using any accessory muscles. Neck: No JVD noted. No carotid bruits. No lymphadenopathy. Cardiovascular: S1, S2 heard. No murmurs, gallops or rubs. Regular rate and rhythm. Respiratory: Clear bilaterally to auscultation. No work of breathing or using accessory muscles. Abdomen: Soft, nontender to palpation. Bowel sounds present. No organomegaly. Extremities: No clubbing, cyanosis or edema. Peripheral pulses present in both legs. Neurologic: Patient alert and oriented x 3. Moves 4 extremities. DISCHARGE DISPOSITION: Home to self care. LIST OF MEDICATIONS: We are not going to make any changes to her current treatment. We are going to add Rocephin 1 g IV every dialysis for a couple weeks. cc: Jose Ruth MD MTDD
[2018-11-27 16:25] VITALS: BP 137/67
[2018-11-28] MEDS ORDERED: ROCEPHIN 1 GM in NS 50 ML IV SCH (07:45)
== END 2018-11-27 15:21 | disposition home or self-care (01) | DRG 689 ==
LOC: ED 18:54 → SUATTDRO 23:03 → 3N 23:03
PROVIDERS: ATTEND Internal Medicine
CPT/HCPCS: 51701; 70450; 71010; 71045; 80048; 80053; 81001; 82550; 82948; 83036; 83735; 84100; 84443; 84484; 85025; 87077; 87088; 87186; 93005; 94640; 94761; 96365; 97162; 97530; 99285; A9270; J0696; J1644; J1956; J7030; P9612; XXXXX

== ENCOUNTER 2018-12-12 13:23 | Inpatient (IN) ==
[2018-12-12 14:11] LABS: BASO# 0.05 X1000 (0.0-0.2); BASO% 0.9 % (0.0-0.8); EOS# 0.26 X1000 (0.0-0.7); EOS% 4.6 % (0.0-10.0); HEMATOCRIT 34.8 % (37.0-47.0); HEMOGLOBIN 10.9 g/dL (12.0-16.0); IMM GRAN# 0.03 X1000 (0.0-0.04); IMM GRAN% 0.5 % (0.0-0.5); LYMPH# 0.99 X1000 (1.2-3.4); LYMPH% 17.7 % (20.5-51.1); MCH 29.9 PG (27-31); MCHC 31.3 g/dL (33-37); MCV 95.6 FL (81-99); MONO# 0.51 X1000 (0.11-0.59); MONO% 9.1 % (1.7-9.3); MPV 10.3 FL (7.4-10.4); NEUT# 3.76 X1000 (1.4-6.5); NEUT% 67.2 % (42.2-75.2); PLT 116 X1000 (130-400); RBC 3.64 XMIL (4.2-5.4); RDW 13.8 % (11.5-14.5)
--- NOTE | 2018-12-12 14:16 | Diag Imaging Result Doc PS360 ---
CHEST-PORTABLE - 12/12/2018 INDICATION: unresponsive COMPARISON: 12/05/2018 FINDINGS: Lung volumes are severely low. There are some scattered linear atelectasis. No infiltrates or edema. No pneumothorax or pleural effusion. Heart size is top normal. IMPRESSION: Severely low lung volumes with some scattered atelectasis. Electronically signed by Piter Ward 12/12/2018 2:13 PM
[2018-12-12 14:17] LABS: INR 0.99; PROTIME 13.9 Seconds (11.0-16.0); PTT 28.5 Seconds (22.3-41.8)
--- NOTE | 2018-12-12 14:21 | EKG Report ---
Test Performed on : 12/12/2018 1:32:22 PM Test Reason : unresponsive Blood Pressure : / mmHG Vent. Rate : 061 BPM Atrial Rate : 061 BPM P-R Int : 210 ms QRS Dur : 078 ms QT Int : 464 ms P-R-T Axes : -08 -33 -07 degrees QTc Int : 467 ms Sinus rhythm. with 1st degree AV block. with occasional premature ventricular complexes. Left axis deviation Voltage criteria for left ventricular hypertrophy Abnormal ECG When compared with ECG of 05-DEC-2018 11:35, (Unconfirmed) premature ventricular complexes. are now present Unconfirmed Result
[2018-12-12 14:41] LABS: ALB/GLOB RATIO 1.8; ALBUMIN 3.7 g/dL (3.5-5.0); CALCIUM 7.8 mg/dL (8.8-10.2); CREATININE 4.1 mg/dL (0.5-0.9); POTASSIUM 4.3 mmol/L (3.5-5.1); TOTAL BILIRUBIN 0.32 mg/dL (0.20-1.00); TOTAL PROTEIN 5.8 g/dL (6.3-8.3)
--- NOTE | 2018-12-12 14:45 | PROVIDER DOCUMENTATION ---
HPI-General Adult - General Chief Complaint: Low Blood Sugar Stated Complaint: UNRESPONSIVE Time Seen by Provider: 12/12/18 14:35 Source: family Allergies/Adverse Reactions: Patient Allergies Allergy/AdvReac Type Severity Reaction Status Date / Time Iodinated Contrast- Oral and Allergy Severe ANAPHYLAXIS Verified 12/12/18 15:19 IV Dye Sulfa (Sulfonamide Allergy Intermediate RASH Verified 12/12/18 15:19 Antibiotics) erythromycin base AdvReac Severe AMS Verified 12/12/18 15:19 [Erythromycin Base] Home Medications: Home Medication List Medication Instructions Recorded Confirmed Last Taken Type Carvedilol C.r. [Coreg Cr] 12.5 mg PO BID 11/16/13 12/12/18 11/25/18 History Fluticasone/Salmeterol [Advair 250 mg INH BID 11/16/13 12/12/18 11/25/18 History 250-50 Diskus] ROSUVAstatin [Crestor] 20 mg PO DAILY 11/16/13 12/12/18 11/25/18 History Raloxifene [Evista] 60 mg PO DAILY 11/16/13 12/12/18 11/25/18 History Solifenacin Succinate [Vesicare] 5 mg PO DAILY 11/16/13 12/12/18 11/25/18 History Allopurinol 100 mg PO DAILY 04/04/16 12/12/18 11/25/18 History Fluticasone 50 Mcg Nasal Gully 2 spray ARYAN DAILY 04/04/16 12/12/18 11/25/18 History [Flonase] Indapamide 2.5 mg PO DAILY 04/04/16 12/12/18 11/25/18 History Montelukast Sodium [Singulair] 10 mg PO DAILY 04/04/16 12/12/18 11/25/18 History Docusate Sodium [Colace] 100 mg PO DAILY PRN #20 cap 10/21/17 12/12/18 11/25/18 Rx Aspirin EC 81 mg PO DAILY #30 tablet 05/28/18 12/12/18 11/25/18 Rx Levothyroxine [Synthroid] 50 microgm PO ACB tablet 05/28/18 12/12/18 11/25/18 Rx Polyethylene Glycol 3350 [Miralax] 17 gm PO BID powder, packet 05/28/18 0 12/12/18 11/25/18 Rx Zolpidem [Ambien] 5 mg PO HS PRN PRN tablet 05/28/18 12/12/18 11/25/18 Rx - History of Present Illness -Gen Adult Nature of Presenting Problems: 78 YOF PRESENTS AFTER BECOMING UNRESPONSIVE AFTER HD, EMS REPORTED BG 52. THE PTS SPOUSE PROVIDES HX FOR PATIENT REPORTS SHE HAS BEEN DIFFICULT TO AROUSE AFTER EACH HD BUT TODAY HE COULD NOT WAKE HER. HE REPORTS THE PATIENT HAS NOT BEEN "ACTING RIGHT SINCE SHE HIT HER HEAD IN OCTOBER". HX IS DIFFICULT TO OBTAIN FROM SPOUSE. PT IS AROUSABLE BUT IS CONFUSED, SHE THINKS SHE IS AT HOME, IS [place] ENTED TO PERSON BUT NOT PLACE OR TIME. DENIES PAIN Location of Pain/Injury: reports: head (L FRONTAL HEMATOMA PRESENT SINCE FALL IN OCTOBER.) Pain Radiation: reports: no radiation Quality of Pain: reports: none Severity: reports: moderate Onset/Duration: reports: just prior to arrival Timing: reports: still present Context/Activities at Onset: reports: none Modifying Factors: improves with: nothing Associated Symptoms: reports: weakness Similar Symptoms Previously?: No Recently seen or treated by another doctor?: No - Diabetes Related Context Context: reports: low blood sugar Review of Systems - Adult - REVIEW OF SYSTEMS - ADULT ROS:: ROS per family Constitutional: reports: no symptoms reported. denies: see HPI, chills, fever, fatique, night sweats, weight gain, weight loss, other Eyes: reports: no symptoms reported. denies: see HPI, discharge, dry eyes, decreased vision, blurred vision, double vision, eye pain, redness, other Ears, Nose, Mouth & Throat: reports: no symptoms reported. denies: see HPI, ear discharge, ear pain, hearing loss, tinnitus, epistaxis, sinus problem, nose pain, loose teeth, mouth/dental pain, mouth swelling, hoarseness, throat pain, throat swelling, other Cardiovascular: reports: no symptoms reported. denies: see HPI, chest pain, edema, heart murmur, irregular heart rate, orthopnea, palpitations, poor circulation, PND, syncope, other Respiratory: reports: no symptoms reported. denies: see HPI, chronic cough, cough, dyspnea on exertion, excessive sputum production, hemoptysis, pleurisy, shortness of breath, wheezing, other Gastrointestinal: reports: no symptoms reported. denies: see HPI, abdominal pain, hematemesis, constipation, diarrhea, difficulty swallowing, frequent heartburn, nausea, poor appetite, rectal bleeding, vomiting, other Genitourinary: reports: no symptoms reported. denies: see HPI, dysuria, disc harge, frequency, flank pain, frequent UTI's, hematuria, hesitency, incontinence, urinary retention, urgency, other Musculoskeletal: reports: muscle weakness. denies: no symptoms reported, see HPI, bone pain, back pain, frequent leg cramps, joint pain, joint swelling, muscle aches, neck pain, other Integumentary: reports: no symptoms reported. denies: see HPI, hives, hair loss, itching, mole changes, nail changes, rash, skin sores/ulcer, skin t hickening, other Neurological: reports: see HPI, other (AMS) Psychiatric: reports: no symptoms reported. denies: see HPI, anxiety, anti- depressant use, alcohol/drug dependence, depression, emotional problems, insomnia, panic attacks, suicidal thoughts, other Endocrine: reports: no symptoms reported. denies: see HPI, change in skin pigment, excessive sweating, goiter, cold intolerance, heat intolerance, increased hunger, increased thirst, polyuria, other Hematologic/Lymphatic: reports: no symptoms reported. denies: see HPI, blood clots, easy bruising, low blood count, lymphedema, prolonged bleeding, swollen lymph nodes, transfusions, other Allergic/Immunologic: reports: no symptoms reported. denies: see HPI, allergic reactions, allergic rhinitis, asthma, eczema, food allergy, frequent infections, hay fever, hives, positive PPD, urticaria, other Past History - Adult - PAST MEDICAL HISTORY-ADULT Review of Records: reports: Nursing Assessment Review, Social history reviewed & non-contributory. Major Childhood Illnesses: reports: denies history Cardiovascular: reports: HTN Respiratory: reports: asthma Gastrointestinal: reports: GERD, other Obstetrical/Gynecological: reports: denies history Genitourinary: reports: dialysis, ESRD, kidney disease Musculoskeletal: reports: arthritis, chronic pain, spinal fracture Neurological: reports: CVA Psychiatric: reports: denies history Endocrine/Immune: reports: denies history Other Conditions: reports: denies history - PRIOR SURGERIES/PROCEDURES Surgical/Procedure History: reports: appendectomy, hysterectomy, other (bladder reconstrution) - IMMUNIZATION STATUS Childhood Immunizations: See Nurse Assessment Flu Vaccine: See Nurse Assessment - FAMILY HISTORY Family History: CAD over 55 yo, HTN, other (father AAA) Physical Exam-General - PHYSICAL EXAM-ADULT Initial Vital Signs Reviewed: Yes - CONSTITUTIONAL General Appearance: no apparent distress, slow to respond - EYES Eyes: PERRL/EOMI - HEAD, EARS, NOSE, MOUTH & THROAT HENMT: normocephalic/atraumatic, moist mucous membranes, normal ENT inspection - NECK Neck: non-tender, supple - RESPIRATORY Respiratory: chest non-tender, decreased breath sounds - CARDIOVASCULAR Cardiovascular: normal peripheral pulses, regular rate, rhythm, no edema, no gallop, no JVD - GASTROINTESTINAL (ABDOMEN) Abdominal Exam: normal bowel sounds, non tender, soft - LYMPHATIC Lymphatic: no adenopathy - MUSCULOSKELETAL Back Exam: normal inspection Extremity: non-tender, normal inspection, other (DIALYSIS GRAFT PRESENT IN LUE) Peripheral Pulses: radial (R): 2+, radial (L): 2+, dorsalis-pedis (R): 2+, dorsalis-pedis (L): 2+ - SKIN Integumentary: normal turgor, warm/dry - NEUROLOGIC Neurologic: grossly normal - PSYCHIATRIC Psych/Mental Status: disheveled, other (FLAT) Progress - PLAN OF CARE/RESULTS Progress/Plan/Lab Results: Vital Signs - 8 hr 12/12/18 13:40 Temperature 97.8 F Pulse Rate 62 Respiratory Rate 23 Blood Pressure 150/83 O2 Sat by Pulse Oximetry 97 Laboratory Results - last 24 hr 12/12/18 12/12/18 12/12/18 13:32 13:49 13:49 WBC 5.60 RBC 3.64 L Hgb 10.9 L Hct 34.8 L MCV 95.6 MCH 29.9 MCHC 31.3 L RDW Std Deviation 13.8 Plt Count 116 L MPV 10.3 Immature Gran % (Auto) 0.5 Neut % (Auto) 67.2 Lymph % (Auto) 17.7 L Saline % (Auto) 9.1 Eos % (Auto) 4.6 Baso % (Auto) 0.9 H Immature Gran # (Auto) 0.03 Neut # (Auto) 3.76 Lymph # (Auto) 0.99 L Saline # (Auto) 0.51 Eos # (Auto) 0.26 Baso # (Auto) 0.05 PT 13.9 INR 0.99 PTT (Actin FS) 28.5 POC Glucose 104 Orders Category Date Time Status Cardiac Monitoring DIRECTED Care 12/12/18 13:58 Active Saline Loc NOW Care 12/12/18 13:58 Active CHEST-PORTABLE [RAD] Stat Exams 12/12/18 13:58 Completed CBC WITH ELECTRONIC DIFF [HEME] Stat Lab 12/12/18 13:49 Completed CK PROFILE [SP CHEM] Stat Lab 12/12/18 13:49 Received COMPREHENSIVE METABOLIC PANEL [CHEM] Stat Lab 12/12/18 13:49 Received PROTIME WITH INR [COAG] Stat Lab 12/12/18 13:49 Completed PTT [COAG] Stat Lab 12/12/18 13:49 Completed TROPONIN T Stat Lab 12/12/18 14:00 Received Altered Mental Status Stat Oth 12/12/18 13:58 Ordered EKG [EKG] Stat Ther 12/12/18 13:58 Draft Result Diagrams: 12/12/18 13:49 12/12/18 13:49 - EKG 1 Time of EKG reading by physician:: 13:33 EKG Read and Signed by:: Karen Merlos EKG Interpretation (*Must complete 3 of following elements*): Normal Rate: 61 Rhythm: SR WITH 1ST DEGREE AV BLOCK W/ OCCASIONAL PVC'S [place]: left QRS: [facility] [place] Interval: normal ST Wave: normal - CT/MRI 1 CT Study: Head Impression: See EMR Report (EXAM: CT HEAD W/O CONTRAST HISTORY: AMS-FALL ON 11/25, PREVIOUS CT NEGATIVE TECHNIQUE: Images were obtained from the skull base to vertex without IV contrast as per standard protocol. COMPARISON: . FINDINGS: Images are degraded by patient motion. Left scalp hematoma has decreased in size. There are no extra-axial collections. No midline shift or mass effect. Mild cerebral atrophy no extra-axial collections no acute fracture. Left maxillary sinus mucosal thickening. IMPRESSION: Mild cerebral atrophy. No acute intracranial abnormality. This exam was performed using automated exposure control, adjustment of mA or kV according to patient size, and/or use of iterative reconstruction technique.) - CONSULTS/PCP/HOSPITALIST Notification #1 *Consult/PCP/Hospitalist*: KESHA WITH HOSPITALIST WILL CALL ER Time Discussed: 16:15 Departure - Departure Date of Disposition Decision: 12/12/18 Time of Disposition Decision: 17:18 DIAGNOSIS: Altered mental status, Hypoglycemia Disposition: ADMITTED INPATIENT 09 Certified Medical Emergency: Emergent Condition: Fair Referrals and Follow-Ups: Derian Dawn MD [Primary Care Provider] - - Critical Care Note This patient required my direct & personal management of CC.: No Attestation - Physician/ JG Attestation Patient care was provided by Advanced Practice Provider:: Yes Advanced Practice Provider:: Makayla Yuan Advanced Practice Provider documentation review:: The Mid-level provider documentation, treatment plan and medical decision making was reviewed by the physician who agrees with all treatment and medical decision making by the MLP. The physician spent face to face time with patient:: No Advanced Practice Provider documentation review:: Supervising physician onsite and consulted in the evaluation and care of this patient. The physician did not have a face to face encounter with the patient.
[2018-12-12] MEDS ORDERED: D5 NS 1,000 ML IV ONE (14:52)
--- NOTE | 2018-12-12 15:56 | Diag Imaging Result Doc PS360 ---
EXAM: CT HEAD W/O CONTRAST HISTORY: AMS-FALL ON 11/25, PREVIOUS CT NEGATIVE TECHNIQUE: Images were obtained from the skull base to vertex without IV contrast as per standard protocol. COMPARISON: 11/25/2018. FINDINGS: Images are degraded by patient motion. Left scalp hematoma has decreased in size. There are no extra-axial collections. No midline shift or mass effect. Mild cerebral atrophy no extra-axial collections no acute fracture. Left maxillary sinus mucosal thickening. IMPRESSION: Mild cerebral atrophy. No acute intracranial abnormality. This exam was performed using automated exposure control, adjustment of mA or kV according to patient size, and/or use of iterative reconstruction technique. Electronically signed by Princess Keating 12/12/2018 3:54 PM
[2018-12-12 16:01] LABS: ALLEN TEST YES; BE 4.3 mmoll (-3.0-3.0); BLOOD TYPE ARTERIAL; HCO3-(ACT) 28.3 mmoll (20.0-26.0); METHB 0.6 % (0.0-1.5); O2(CT) 14.9 mL/dL (15.0-23.0); O2HB 95.8 % (95.0-99.0); PCO2(98.6) 44 mmHg (35-45); PO2(98.6) 93 mmHg (60-100); SAMPLE BLOOD; SAO2 97.3 % (95.0-100.0); pH(98.6) 7.43 (7.35-7.45)
[2018-12-12 16:02] LABS: MODALITY ROOM AIR
[2018-12-12] MEDS: D50W SYRINGE IV PRN (20:47)
[2018-12-12] MEDS ORDERED: COLACE PO PRN (21:48)
[2018-12-12] MEDS ORDERED: AMBIEN PO PRN (21:48)
[2018-12-12] MEDS ORDERED: ZOFRAN IV PRN (21:48)
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
[2018-12-12] MEDS: HUMALOG SUBQ SCH (23:15)
[2018-12-12] MEDS: COREG PO SCH (23:15)
[2018-12-12] MEDS: MIRALAX PO SCH (23:15)
[2018-12-13 00:41] LABS: URINE SOURCE CATH
[2018-12-13] MEDS: D50W SYRINGE IV PRN ×2 (00:41→07:50)
[2018-12-13 00:45] LABS: BILIRUBIN URINE NEGATIVE (NEGATIVE); BLOOD URINE MODERATE (NEGATIVE); COLOR ORANGE; GLUCOSE URINE NEGATIVE (NEGATIVE); KETONE URINE NEGATIVE (NEGATIVE); LEUKOCYTES URINE LARGE (NEGATIVE); NITRITE URINE NEGATIVE (NEGATIVE); PH URINE 7.5; PROTEIN URINE 100 mg/dL (NEGATIVE); SP GRAVITY URINE 1.003; TURBIDITY URINE TURBID (CLEAR); UROBILINOGEN URINE NORMAL (NORMAL)
[2018-12-13 00:47] LABS: UR EPITHELIAL CELLS <10 /HPF (<10); URINE BACTERIA NEGATIVE /HPF; URINE RBC TNTC /HPF (<10); URINE WBC TNTC /HPF (<10)
[2018-12-13 01:00] LABS: URINE CASTS NONE SEEN; URINE CRYSTALS NONE SEEN; URINE SMALL ROUND CELLS NONE SEEN; URINE YEAST NONE SEEN
[2018-12-13] MEDS: PRILOSEC PO SCH ×2 (05:43→06:03)
[2018-12-13] MEDS: SYNTHROID PO SCH ×2 (05:43→06:03)
[2018-12-13] MEDS: HUMALOG SUBQ SCH ×2 (06:03→11:00)
[2018-12-13 06:36] LABS: BASO# 0.06 X1000 (0.0-0.2); EOS# 0.28 X1000 (0.0-0.7); EOS% 4.7 % (0.0-10.0); HEMATOCRIT 38.8 % (37.0-47.0); HEMOGLOBIN 12.3 g/dL (12.0-16.0); IMM GRAN# 0.02 X1000 (0.0-0.04); IMM GRAN% 0.3 % (0.0-0.5); LYMPH# 1.61 X1000 (1.2-3.4); LYMPH% 27.2 % (20.5-51.1); MCHC 31.7 g/dL (33-37); MCV 97.7 FL (81-99); MONO# 0.68 X1000 (0.11-0.59); MONO% 11.5 % (1.7-9.3); MPV 10.4 FL (7.4-10.4); NEUT# 3.27 X1000 (1.4-6.5); NEUT% 55.3 % (42.2-75.2); PLT 90 X1000 (130-400); RBC 3.97 XMIL (4.2-5.4); RDW 13.8 % (11.5-14.5); WBC 5.92 X1000 (4.8-10.8)
[2018-12-13] MEDS: ADVAIR 250/50 DISKUS INH SCH ×2 (07:45→19:36)
[2018-12-13] MEDS ORDERED: VESICARE PO SCH (09:00)
[2018-12-13] MEDS: SINGULAIR PO SCH (09:15)
[2018-12-13] MEDS: COREG PO SCH ×2 (09:15→21:56)
[2018-12-13] MEDS: ZYLOPRIM PO SCH (09:15)
[2018-12-13] MEDS: ASPIRIN EC PO SCH (09:15)
[2018-12-13] MEDS: CRESTOR PO SCH (09:15)
[2018-12-13] MEDS: LOZOL PO SCH (09:15)
[2018-12-13] MEDS: EVISTA PO SCH (09:15)
[2018-12-13] MEDS: MIRALAX PO SCH ×2 (09:15→21:56)
--- NOTE | 2018-12-13 12:34 | PROGRESS NOTE ---
DATE: 12/13/2018 INTERVAL HISTORY: The patient did have episodes of hypoglycemia overnight, where her blood sugars had dropped to 52 at nighttime. However, she was continued on dextrose drip, following which her blood sugars were in acceptable range. The patient, in the morning time, is alert and oriented. She denies any complaints. She denies any urinary burning or urgency or abdominal pain or frequency. She says she does not remember why she came to the hospital or why she was confused. OBJECTIVE: Vital Signs: Currently, vitals suggest temperature of 97.7 degrees, pulse 58, respiratory rate 18, blood pressure 130/57, saturating 98% on room air. General: Not obese. Not in any acute distress. HEENT: Oral cavity is moist. Lungs: Air entry bilaterally equal. No wheeze, rhonchi, crackles. Cardiovascular: S1, S2 normal. No murmur or gallop. Abdomen: Soft, nontender. Extremities: No lower extremity edema. Neurologic: She does have right upper extremity resting tremor, which diminishes on intention. She is able to raise both upper and lower extremities above ground level. She does have some weakness of left lower extremity as compared to the right, which she states is baseline for her. She also had mild ptosis of the left eye as compared to the right, likely from prior CVA, which had affected left side of her body. LABORATORY DATA: No leukocytosis. Normal hemoglobin. Chronic thrombocytopenia. Blood sugars currently in acceptable range. MICROBIOLOGY: Urine culture is pending. However, I will not treat it since she has been asymptomatic. IMAGING: Head CT yesterday had mild cerebral atrophy, without any acute intracranial abnormality. Chest x-ray had severely low lung volume with atelectasis. ASSESSMENT AND PLAN: 1. Acute encephalopathy of unclear etiology. Hypoglycemia could have contributed to it. Head CT was unremarkable for acute pathology. I will continue to monitor her blood glucose with meals and at nighttime. I will continue her renal diet. I will stop all antidiabetic products since her hemoglobin A1c was extremely low on previous admission. 2. Chronic kidney disease stage 5, on Monday, Monday, Monday hemodialysis. Nephrology has been consulted. Apparently, the patient gets very tired after dialysis, and she has had episodes of extreme tiredness and low responsiveness after dialysis recently. According to the patient, her dialysis timing has been decreased following this. Nephrology on board. 3. Essential hypertension and history of cerebrovascular accident in 1979. I will continue her home aspirin, carvedilol, indapamide, raloxifene, and rosuvastatin. 4. Hypothyroidism. Continue home levothyroxine. Continue allopurinol for gout. 5. Chronic anemia and thrombocytopenia, currently in acceptable range. She is not overtly bleeding. She should follow up with outpatient provider. 6. Disposition. I will continue to monitor the patient inside the hospital for another 24 hours. I will not treat her urine pyuria since she was not symptomatic. I will encourage her to have oral intake. Plan of care discussed with her, and all of her questions have been answered. cc: Eleuterio Puckett MD
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
--- NOTE | 2018-12-13 14:58 | CONSULTATION ---
DATE OF CONSULTATION: 12/13/2018 HISTORY: Ms. Robles is 78 years old, and she was reportedly found unresponsive with blood sugar in the 50s. She was brought to the hospital, evaluated and admitted. Her report is that she remembers getting home after dialysis, feeling tired, having something to eat, resting, falling asleep, and she next realized she was in the hospital. is not present for firsthand report today. I have reviewed the history recorded. He apparently found her unresponsive. He has reportedly seen her difficult to arouse at times, but this time she was not arousable. Blood sugar was reported 52 at home. There was not report of rigidity, limb jerking, or other seizure- like activity. There was no tongue or lip biting. There is report from the patient that she has had several episodes of collapse. She fell asleep sitting on the toilet about 6 weeks ago, fell and bruised her knees. She fell asleep sitting on the toilet about 3 weeks ago, fell and hit her head, sustaining left frontal scalp hematoma. She has had some headache since then, gradually improving. Headache has not been any worse since the episode yesterday. She has fallen at other times when she was awake and alert, standing and walking. She reports ankle injury with fall a few years ago. She has been aware of involuntary shaking, mostly in the right arm in the last year or so. She notices the right arm shaking mostly at rest. She reports being told that she might have had stroke causing transient difficulty swallowing more than 15 years ago. She does not recall any focal neurologic deficit then. Otherwise, she has not had stroke. There is no history of seizure or other neurologic event. Workup here includes noncontrast CT on admission yesterday showing no intracranial change compared to scan done a few weeks ago. The left frontal scalp hematoma is resolving. Lab shows anemia. Blood sugars have been 60s and then 170s, then 50s and then 140s. She has been afebrile. Systolic blood pressures have ranged 110s to 160s. Heart rate has ranged 50s to 60s. There is reported past history of diabetes mellitus, peripheral neuropathy, end- stage renal disease managed with hemodialysis. PHYSICAL EXAMINATION: On exam, Ms. Robles is awake, alert, attentive, cheerful, appropriate and very bright. She recalls seeing me more than 15 years ago. She recalls some details of mental status exam then. She is completely oriented. Speech is not dysarthric. Language function is intact. Head and neck are unremarkable. Visual jennings are full tested grossly by confrontational finger counting. Extraocular movements are full. Facial motility is good bilaterally and symmetric. Gag is intact. Tongue is midline. She can hear. She has good lateral eye movement and good upgaze for age. Strength is normal in the arms and legs. Tone is normal and symmetric without definite cogwheeling or rigidity. She did well on [id number] testing bilaterally. She has tremor in the right arm more than the left, prominent at rest and with action. I did not see asterixis, myoclonus or other abnormal movement. She has a stocking pattern of sensory loss to pinprick and light touch testing. Pinprick appreciation is good over the palms bilaterally. Proprioception is good at the great toe MTP joint bilaterally. Reflexes are absent at the ankles bilaterally. Plantar response is silent bilaterally. I did not test her gait. IMPRESSION: 1. Recent period of unresponsiveness. There was fairly mild hypoglycemia documented, but there might have been more profound hypoglycemia prior to that. If this was not hypoglycemic encephalopathy, seizure would be a consideration. Seizure might be triggered by hypoglycemia. I do not see anything on her medication list or her lab work that would correlate with seizure or encephalopathy. I suppose she simply could have been sleeping very hard and could not wake her, but that seems less likely. I will order EEG. 2. Asymmetric tremor with mixed features, resting and action components. I do not think we need to pursue this urgently. We might consider outpatient evaluation later and try to sort this out. Eventually, might consider cautious trial with dopaminergic medicine and/or medicine for action tremor. 3. History of unsteady gait with falling, and history of collapse, apparently falling asleep while on the toilet. These episodes may or may not be related and may or may not have the same etiology as yesterday's episode. Thanks for asking Neurology to see Ms. Robles. cc: MD TANYA Mac III
--- NOTE | 2018-12-13 19:24 | EEG REPORT ---
DATE: 12/13/2018 COMMENT: This is a digitally recorded EEG on an 78-year-old patient with transient altered awareness, possibly syncope, mixed tremor. FINDINGS: During waking, 8 to 9 Hz posterior rhythm is present bilaterally, very poorly sustained with uncertain reactivity to eye opening. Background contains polymorphic and rhythmic theta frequencies abundantly across the hemispheres with some slowing into the delta range frontally while awake. Sometimes, delta is more prominent on the left. Drowsing occurred briefly. Stage 2 sleep was not recorded. Hyperventilation was not done. Photic stimulation did not significantly alter the record. No definite epileptiform discharge was identified. INTERPRETATION: Abnormal electroencephalogram because of generalized slowing. CORRELATION: This is indicative of a diffuse encephalopathy and is nonspecific. The absence of epileptiform discharges on a single EEG does not exclude a clinical diagnosis of seizures. cc: Gabbie Hansen III, MD
[2018-12-14] MEDS: SYNTHROID PO SCH (06:12)
[2018-12-14 06:56] LABS: ALBUMIN 3.2 g/dL (3.5-5.0); CALCIUM 7.7 mg/dL (8.8-10.2); CREATININE 7.4 mg/dL (0.5-0.9); PHOSPHORUS 6.4 mg/dL (2.7-4.5); POTASSIUM 5.5 mmol/L (3.5-5.1)
[2018-12-14] MEDS ORDERED: TIGHT: 0.2 ML/HR FOR DIALYSIS MISC PRN (07:56)
[2018-12-14] MEDS ORDERED: HEPARIN IV PRN (07:56)
[2018-12-14] MEDS ORDERED: NS 2,000 ML MISC PRN (07:56)
[2018-12-14] MEDS: ADVAIR 250/50 DISKUS INH SCH (08:02)
[2018-12-14] MEDS: FLONASE NAS SCH ×2 (09:35→09:42)
--- NOTE | 2018-12-14 09:35 | PROGRESS NOTE ---
DATE: 12/14/2018 Ms. Robles reports no further episodes of collapse, syncope, altered awareness or unconsciousness. She reports taking omeprazole, but denies metoclopramide and she reports never taking an antipsychotic medication. I named several of those and she reports she never had any of those. On exam, she was initially asleep as I approached the bedside, and there was no tremor or other abnormal movement apparent. When I waked her, she was immediately alert, and attentive. Tremor began in the right arm on waking, with similar features to what I saw yesterday, resting and action components. Her EEG did not show tendency to seizure. I do not have a definite neurologic explanation for her recent episodes. I encouraged her to try to maintain good blood sugar control. If she has further episodes, I will be glad to see her again. Also, I will be glad to evaluate her for the tremor electively as an outpatient. Thanks for asking Neurology to see Ms. Robles. cc: MD TANYA Mac III
[2018-12-14] MEDS: LOZOL PO SCH (09:36)
[2018-12-14] MEDS: ASPIRIN EC PO SCH (09:36)
[2018-12-14] MEDS: EVISTA PO SCH (09:37)
[2018-12-14] MEDS: SINGULAIR PO SCH (09:37)
[2018-12-14] MEDS: ZYLOPRIM PO SCH (09:37)
[2018-12-14] MEDS: CRESTOR PO SCH (09:37)
[2018-12-14] MEDS: COREG PO SCH (09:37)
[2018-12-14] MEDS: MIRALAX PO SCH (09:38)
[2018-12-14 14:49] VITALS: BP 103/62
--- NOTE | 2018-12-14 15:45 | NEPHROLOGY PROGRESS NOTE ---
DATE: 12/14/2018 SUBJECTIVE: She has no new symptoms today. Still very weak. Hoping for discharge. OBJECTIVE: Vital Signs: Blood pressure 135/55, heart rate 62, respirations 16. General: No acute distress. Skin: Warm and dry. Neck: Neck veins are not distended. Oropharynx is dry. Heart: Regular. No gallops or rubs. Lungs: Equal. No crackles. Abdomen: Soft, obese, nontender. Bowel sounds present. Extremities: No edema, clubbing or cyanosis. IMPRESSION: Chronic kidney disease 5 D. We will dialyze with low blood flow and low dialysate flow today in somewhat shortened time, and then reassess her symptoms thereafter. If she is free of symptoms, she can go home thereafter. cc: Perry El MD
--- NOTE | 2018-12-15 08:45 | DISCHARGE SUMMARY ---
ADMISSION DATE: 12/12/2018 DISCHARGE DATE: 12/14/2018 DISCHARGE DISPOSITION: Home. DISCHARGE CONDITION: Patient is alert and oriented x3 not in any distress. She is able to engage in conversation without any trouble. She is 2 hours post dialysis. DISCHARGE DIAGNOSES: 1. Acute encephalopathy likely related to hemodialysis related prostration. 2. Hypoglycemia, though her sugars were 52 on presentation. She is not listed to be taking any antidiabetic or anti oral hypoglycemic agents. It was thought to be unlikely contributor of her confusion on presentation. OTHER DIAGNOSES: 1. Chronic kidney disease stage 5 on Monday, Monday, Monday hemodialysis. 2. Essential hypertension. 3. History of cerebrovascular accident in 1979. 4. Hypothyroidism. 5. Chronic anemia and thrombocytopenia. 6. Right upper extremity tremors at rest. DISCHARGE MEDICATIONS: 1. Advair 250/50 Diskus 250 inhaled b.i.d. 2. Allopurinol 100 mg daily. 3. Carvedilol 12.5 mg b.i.d. 4. Rosuvastatin 20 mg daily. 5. Raloxifene 60 mg daily. 6. Fluticasone nasal spray 2 sprays nasal daily. 7. Indapamide 2.5 mg daily. 8. Montelukast 10 mg daily. 9. Solifenacin 5 mg daily. 10. Aspirin 81 mg daily. 11. Docusate 100 mg daily. 12. MiraLAX 17 g p.o. b.i.d. 13. Levothyroxine 50 mcg p.o. daily in the morning time. CONSULTATIONS DURING HOSPITAL ADMISSION: 1. Nephrology, Dr. El. 2. Neurology, Dr. Hansen. VITALS: At the time of discharge, temperature 98.3 degrees, pulse 60, respiratory rate 14, blood pressure 105/62 and saturating 100% room air. PHYSICAL EXAMINATION: General: She does not appear in any acute distress. Oral cavity is moist. Lungs: Air entry bilaterally equal. No wheeze, rhonchi, or crackles. Cardiovascular: S1, S2 normal. No murmur or gallop. Abdomen: Soft, nontender. Extremities: No lower extremity edema. Neurologic: She is alert and oriented x3. She does have right upper extremity tremor at rest, but she is able to come out of bed and sit in the chair without anyone's help. Otherwise, examination currently appears nonfocal. SIGNIFICANT LABORATORY AT TIME OF DISCHARGE: WBC 5.9, hemoglobin 12.3, and platelet count 90,000. INR 0.99. Sodium 133, potassium 5.5, chloride 96, BUN 36, and creatinine 7.4. Phosphorus 6.4. Calcium 7.7. The patient received dialysis after that. MICROBIOLOGY DURING HOSPITAL ADMISSION: Urine culture did not have any growth. IMAGING DURING HOSPITAL ADMISSION: Chest x-ray on admission had low lung volumes and some atelectasis. Head CT on admission had mild cerebral atrophy without any acute intracranial abnormalities. HOSPITAL COURSE/SUMMARY: Ms. Robles is an 78-year-old lady with history of chronic kidney disease stage 5 on Monday, Monday, Monday hemodialysis, who was reportedly found not responding well by the family members at home and so EMS was called. When EMS arrived, the patient was found to have blood sugar of 52 so she was sent to the emergency room. According to the patient and her ,the patient had been getting very confused and difficult to arouse after each dialysis treatment since about a month or so, and some changes were made in her dialysis schedule. However, she did not improve. Most of the times, she would be able to be aroused sometime after dialysis. However, this time around, she was still very confused and was not waking up, and so EMS was called. In the emergency room, she was hemodynamically stable. The head CT did not detect any acute intracranial pathology. By the time I evaluated her 24 hours later, her mental status was back to baseline. She was alert and oriented x3. It was thought that her altered mental status was related to post dialysis effect, and Nephrology team was aware of that. At the time of discharge, the patient was advised to take frequent small meals. Neurology did not have new input. However, considering her right upper extremity tremors, she was advised to follow up with Neurology as an outpatient. At the time of discharge, the patient was alert and oriented times x3. All of her questions were satisfactorily answered. TIME SPENT: More than 30 minutes were spent in discharging this patient. cc: MD TANYA Emery
== END 2018-12-14 19:13 | disposition home health service (06) | DRG 70 ==
LOC: SUPCPDRO → ED 13:23 → 4N 20:32 → SUATTDRO 20:32
PROVIDERS: ATTEND Internal Medicine
CPT/HCPCS: 70450; 71010; 71045; 80053; 80069; 81001; 82550; 82805; 82948; 84484; 85025; 85610; 85730; 87088; 93005; 94640; 94761; 95816; 96365; 96366; 96375; 99285; A9270; J1644; J7030; J7042; XXXXX

== ENCOUNTER 2019-04-23 14:32 | Inpatient (IN) ==
--- NOTE | 2019-04-23 15:05 | PROVIDER DOCUMENTATION ---
HPI-Abdominal Pain/GI Problem - General Chief Complaint: Nausea/Vomiting Stated Complaint: NOT EATING DRINKING Time Seen by Provider: 04/23/19 14:51 Source: patient, family (daughter in law) Allergies/Adverse Reactions: Patient Allergies Allergy/AdvReac Type Severity Reaction Status Date / Time Iodinated Contrast Media Allergy Severe ANAPHYLAXIS Verified 04/23/19 15:06 Sulfa (Sulfonamide Allergy Intermediate NAUSEA/VOMI Verified 04/23/19 15:06 Antibiotics) TING erythromycin base AdvReac Severe AMS Verified 04/23/19 15:06 [Erythromycin Base] Home Medications: Home Medication List Medication Instructions Recorded Confirmed Last Taken Type Carvedilol C.r. [Coreg Cr] 12.5 mg PO HS 11/16/13 02/07/19 02/06/19 21:00 History Fluticasone/Salmeterol [Advair 250 mg INH BID 11/16/13 02/07/19 02/06/19 21:00 History 250-50 Diskus] ROSUVAstatin [Crestor] 20 mg PO DAILY 11/16/13 02/06/19 02/06/19 21:00 History Raloxifene [Evista] 60 mg PO DAILY 11/16/13 02/06/19 02/06/19 21:00 History Solifenacin Succinate [Vesicare] 5 mg PO DAILY 11/16/13 02/06/19 02/06/19 21:00 History Allopurinol 100 mg PO DAILY 04/04/16 02/06/19 02/06/19 21:00 History Fluticasone 50 Mcg Nasal Maybee 2 spray ARYAN DAILY 04/04/16 02/06/19 02/06/19 21:00 History [Flonase] Indapamide 2.5 mg PO DAILY 04/04/16 02/06/19 02/06/19 21:00 History Montelukast Sodium [Singulair] 10 mg PO DAILY 04/04/16 02/06/19 02/06/19 21:00 History Docusate Sodium [Colace] 100 mg PO DAILY PRN #20 cap 10/21/17 02/06/19 02/06/19 21:00 Rx Levothyroxine [Synthroid] 50 microgm PO ACB tablet 05/28/18 02/06/19 02/06/19 21:00 Rx Insulin Glargine,Hum.rec.anlog 50 unit SQ DAILY 02/06/19 02/06/19 02/06/19 21:00 History [Lantus Solostar] Polyethylene Glycol 3350 [Miralax] 17 gm PO HS 02/07/19 02/07/19 02/06/19 21:00 History Tramadol [Ultram] 50 mg PO Q6H PRN PRN #10 tab 02/11/19 Unknown Rx Nitrofurantoin Monohyd/M-Cryst 100 mg PO BID #10 cap 04/16/19 Unknown Rx [Macrobid 100 mg Capsule] Ondansetron HCl [Zofran] 4 mg PO TID PRN #10 tab 04/16/19 Unknown Rx - History of Present Illness-ABD Nature of Presenting Problems: 78 YO f pmh for ESRD, HD M,W,F presents with c/o n/v x 1.5 weeks. States she has hardly been able to keep anything down. She was seen here recently for the same symptoms and was given fluids and sent home. She also went to her PCP the following day and was given anti-emetics and sent home. Pt states she has generalized pain all over. Denies heart hx. She still makes urine. Has hx of frequent UTIs. recent procedure performed in Jan, found to have pelvic prolapse. Pt completed dialysis on yesterday. Abdominal Pain Onset Location: reports: generalized abdomen Quality of Pain: reports: other (unconfortable) Severity in ED: reports: mild Onset/Duration: reports: last week Timing: reports: still present Activities at Onset: reports: none Exposure to sick contacts?: No Associated Symptoms: reports: loss of appetite, malaise, nausea, vomiting, weakness Last BM: this afternoon Dark Stools Present?: reports: none noticed Similar Symptoms Previously?: Yes Recently seen or treated by another doctor?: Yes ([facility] 1 week ago) Review of Systems - Adult - REVIEW OF SYSTEMS - ADULT Constitutional: denies: chills, fever Eyes: reports: no symptoms reported Ears, Nose, Mouth & Throat: reports: no symptoms reported Cardiovascular: denies: chest pain, edema Respiratory: denies: see HPI, shortness of breath, wheezing Gastrointestinal: reports: see HPI, abdominal pain, diarrhea, nausea, poor appetite, vomiting Genitourinary: reports: frequent UTI's Musculoskeletal: reports: no symptoms reported Integumentary: reports: no symptoms reported Past History - Adult - PAST MEDICAL HISTORY-ADULT Review of Records: reports: Old Records Reviewed Major Childhood Illnesses: reports: denies history Cardiovascular: reports: denies history, HTN Respiratory: reports: asthma Gastrointestinal: reports: GERD, other Obstetrical/Gynecological: reports: denies history Genitourinary: reports: dialysis, ESRD, kidney disease Musculoskeletal: reports: arthritis, chronic pain, spinal fracture Neurological: reports: CVA Psychiatric: reports: denies history Endocrine/Immune: reports: denies history Other Conditions: reports: denies history - PRIOR SURGERIES/PROCEDURES Surgical/Procedure History: reports: appendectomy, hysterectomy, other (bladder reconstrution) - IMMUNIZATION STATUS Childhood Immunizations: See Nurse Assessment Flu Vaccine: See Nurse Assessment - FAMILY HISTORY Family History: CAD over 55 yo, HTN, other (father AAA) - SOCIAL HISTORY Smoking: non-smoker Substance Use: denies Living Situation: family Physical Exam-General - PHYSICAL EXAM-ADULT Initial Vital Signs Reviewed: Yes - CONSTITUTIONAL General Appearance: alert, mild distress - EYES Eyes: PERRL/EOMI - HEAD, EARS, NOSE, MOUTH & THROAT HENMT: normocephalic/atraumatic - NECK Neck: supple - RESPIRATORY Respiratory: lungs clear, normal breath sounds - CARDIOVASCULAR Cardiovascular: regular rate, rhythm, systolic murmur - GASTROINTESTINAL (ABDOMEN) Abdominal Exam: tenderness. negative: guarding, rigid, rebound - MUSCULOSKELETAL Extremity: non-tender, no pedal edema, other (fistula left distal forearm) - SKIN Integumentary: normal color, normal turgor, warm/dry - NEUROLOGIC Neurologic: grossly normal - PSYCHIATRIC Psych/Mental Status: normal thought content Progress - PLAN OF CARE/RESULTS Progress/Plan/Lab Results: Vital Signs - 8 hr 04/23/19 14:39 Temperature 99.0 F Pulse Rate 81 Respiratory Rate 18 Blood Pressure 131/85 O2 Sat by Pulse Oximetry 96 Orders Category Date Time Status Saline Loc NOW Care 04/23/19 14:[address] ABDOMEN/PELVIS W/O CONTRAST [CT] Stat Exams 04/23/19 15:02 Ordered CBC WITH ELECTRONIC DIFF [HEME] Stat Lab 04/23/19 14:56 Uncollected COMPREHENSIVE METABOLIC PANEL [CHEM] Stat Lab 04/23/19 14:56 Uncollected EKG [EKG] Stat Ther 04/23/19 14:56 Ordered Result Diagrams: 04/23/19 15:20 04/23/19 15:20 - REASSESSMENT Reassessment #1 Time Reassessed: 17:00 Status: improving (labs reviewed and ok with UA showing UTI. abd CT showing cystitis. pt complaining of pain. will give morphine. will start on abx. plan for admission.) - CT/MRI 1 CT Study: Abdomen, Pelvis Impression: See EMR Report (INDICATION: abd pain, n/v COMPARISON: 05/19/2019 FINDINGS: The lung bases are clear and the heart size is normal. There is a stable, small hiatal hernia. The liver is somewhat nodular indicating possible sclerosis. This is stable from prior. Stable mild splenomegaly. The kidneys are extremely atrophic. No hydronephrosis. There are some small stable stones at the upper pole the left kidney. There is moderate diverticulosis of the descending and sigmoid colon. No bowel obstruction or inflammation. Urinary bladder demons trates some wall thickening. Uterus is absent. Rectum is normal. Stable L1 compression fracture with vertebroplasty cement. No new compression fractures. IMPRESSION: 1. Urinary bladder wall thickening suggesting cystitis. 2. Diverticulosis coli. 3. Other findings stable from prior. This exam was performed using automated exposure control, adjustment of mA or kV according to patient size, and/or use of iterative reconstruction technique Electronically signed by Piter Ward 04/23/2019 4:08 PM) - CONSULTS/PCP/HOSPITALIST Notification #1 *Consult/PCP/Hospitalist*: Dr. New Time Discussed: 17:52 Consult Disposition: Will see in ED Departure - Departure Date of Disposition Decision: 04/23/19 Time of Disposition Decision: 17:52 DIAGNOSIS: Cystitis, Nausea and vomiting Disposition: ADMITTED INPATIENT 09 Certified Medical Emergency: Emergent Condition: Stable Referrals and Follow-Ups: Derian Dawn MD [Primary Care Provider] - - Critical Care Note This patient required my direct & personal management of CC.: No Attestation - Physician/ JG Attestation The physician spent face to face time with patient:: Yes Advanced Practice Provider documentation review:: Supervising physician onsite and consulted in the evaluation and care of this patient. The physician did have a face to face encounter with the patient.
[2019-04-23 15:44] LABS: BASO# 0.04 X1000 (0.0-0.2); BASO% 0.6 % (0.0-0.8); EOS# 0.21 X1000 (0.0-0.7); EOS% 3.1 % (0.0-10.0); HEMATOCRIT 39.1 % (37.0-47.0); HEMOGLOBIN 12.4 g/dL (12.0-16.0); IMM GRAN# 0.02 X1000 (0.0-0.04); IMM GRAN% 0.3 % (0.0-0.5); LYMPH# 1.08 X1000 (1.2-3.4); LYMPH% 15.9 % (20.5-51.1); MCHC 31.7 g/dL (33-37); MCV 94.4 FL (81-99); MONO# 0.56 X1000 (0.11-0.59); MONO% 8.2 % (1.7-9.3); MPV 9.4 FL (7.4-10.4); NEUT# 4.89 X1000 (1.4-6.5); NEUT% 71.9 % (42.2-75.2); PLT 123 X1000 (130-400); RBC 4.14 XMIL (4.2-5.4); RDW 14.8 % (11.5-14.5)
[2019-04-23] MEDS ORDERED: ZOFRAN IM ONE (16:07)
[2019-04-23 16:10] LABS: ALB/GLOB RATIO 1.3; ALBUMIN 3.7 g/dL (3.5-5.0); CALCIUM 8.4 mg/dL (8.8-10.2); POTASSIUM 3.1 mmol/L (3.5-5.1); TOTAL BILIRUBIN 0.68 mg/dL (0.20-1.00); TOTAL PROTEIN 6.6 g/dL (6.3-8.3)
--- NOTE | 2019-04-23 16:11 | Diag Imaging Result Doc PS360 ---
CT ABDOMEN/PELVIS W/O CONTRAST - 04/23/2019 INDICATION: abd pain, n/v COMPARISON: 05/19/2019 FINDINGS: The lung bases are clear and the heart size is normal. There is a stable, small hiatal hernia. The liver is somewhat nodular indicating possible sclerosis. This is stable from prior. Stable mild splenomegaly. The kidneys are extremely atrophic. No hydronephrosis. There are some small stable stones at the upper pole the left kidney. There is moderate diverticulosis of the descending and sigmoid colon. No bowel obstruction or inflammation. Urinary bladder demonstrates some wall thickening. Uterus is absent. Rectum is normal. Stable L1 compression fracture with vertebroplasty cement. No new compression fractures. IMPRESSION: 1. Urinary bladder wall thickening suggesting cystitis. 2. Diverticulosis coli. 3. Other findings stable from prior. This exam was performed using automated exposure control, adjustment of mA or kV according to patient size, and/or use of iterative reconstruction technique Electronically signed by Piter Ward 04/23/2019 4:08 PM
[2019-04-23] MEDS ORDERED: ZOFRAN IV ONE (16:14)
[2019-04-23 16:16] LABS: CREATININE 5.8 mg/dL (0.5-0.9)
[2019-04-23 16:35] LABS: URINE SOURCE CLEAN CATCH
[2019-04-23 16:40] LABS: BILIRUBIN URINE NEGATIVE (NEGATIVE); BLOOD URINE SMALL (NEGATIVE); COLOR YELLOW; GLUCOSE URINE NEGATIVE (NEGATIVE); KETONE URINE NEGATIVE (NEGATIVE); LEUKOCYTES URINE LARGE (NEGATIVE); NITRITE URINE NEGATIVE (NEGATIVE); PROTEIN URINE 50 mg/dL (NEGATIVE); SP GRAVITY URINE 1.007; TURBIDITY URINE HAZY (CLEAR); UROBILINOGEN URINE NORMAL (NORMAL)
[2019-04-23 16:43] LABS: UR EPITHELIAL CELLS <10 /HPF (<10); URINE BACTERIA NEGATIVE /HPF; URINE RBC <10 /HPF (<10); URINE WBC TNTC /HPF (<10)
[2019-04-23] MEDS ORDERED: MORPHINE IV ONE (16:45)
[2019-04-23] MEDS ORDERED: ROCEPHIN 1 GM in NS 50 ML IV ONE (16:45)
[2019-04-23] MEDS ORDERED: KLOR-CON PO ONE (17:14)
--- NOTE | 2019-04-23 18:57 | HISTORY AND PHYSICAL ---
PRIMARY CARE PHYSICIAN: Derian Dawn MD CHIEF COMPLAINT: Nausea/vomiting for the past week and a half. Was in the emergency room on 04/16/2019, diagnosed with a UTI. HISTORY OF PRESENTING ILLNESS: This is an 78-year-old female, who presents to [facility] with complaints of nausea/vomiting for the past week and a half. Has not been able to keep anything down. Was here on 04/16/2019 and diagnosed with a urinary tract infection, was given fluids and antibiotics. Went to see her primary care physician the next day, but continued to feel bad. She is an end-stage renal dialysis patient with hemodialysis on Monday, Monday, Monday, but still does make some urine and has a history of frequent UTIs, and she did complete her dialysis yesterday. Today we did a CT of the abdomen and pelvis that showed urinary bladder wall thickening suggesting cystitis so she will be admitted for further evaluation and treatment. PAST MEDICAL HISTORY: End-stage renal disease with dialysis on Monday, Monday, Monday, hypertension, GERD, asthma, arthritis, and a CVA. PAST SURGICAL HISTORY: Appendectomy, hysterectomy, and a bladder reconstruction. FAMILY HISTORY: Reviewed and noncontributory. SOCIAL HISTORY: She currently lives with family. Denies any tobacco, alcohol, or illicit drug use. ALLERGIES: Iodinated contrast media, sulfa, and erythromycin. HOME MEDICATIONS: A current list will need to be obtained, reconciled, reviewed, and restarted as appropriate. Place an order for Nursing to update and confirm home medications. DIAGNOSTIC STUDIES: White blood cell count of 6.80, hemoglobin 12.4, hematocrit 39.1, platelets 123,000. Sodium 139, potassium 3.1, chloride 97, CO2 of 25, BUN of 14, creatinine of 5.8, glucose 124. Urinalysis showed negative nitrites, large leukocytes, and negative bacteria. We did do a CT of the abdomen and pelvis that showed an impression of urinary bladder wall thickening suggesting cystitis. REVIEW OF SYSTEMS: She denied any fever, chills, blurred vision, dizziness, chest pain, coughing, shortness of breath. She denied any abdominal pain, but has had nausea/vomiting. Denied any constipation, diarrhea, and denied any burning/hurting with urination. PHYSICAL EXAMINATION: VITAL SIGNS: On arrival she had a temperature of 99 degrees, pulse 81, respirations 18, blood pressure 131/85, saturating 96% on room air. GENERAL: This is an 78-year-old female, who is lying in the bed and answers questions appropriately. HEMNT: Normocephalic, atraumatic. Normal ENT inspection. Oropharynx and nares are clear. EYES: Pupils are equal, round, and reactive to light and accommodation. Extraocular movements are intact. NECK: Normal inspection. Normal range of motion. LUNGS: Clear to auscultation bilaterally with equal lung expansion and chest wall movement. HEART: With regular rate and rhythm. No murmurs, rubs, or gallops. ABDOMEN: Soft, nontender, nondistended. Bowel sounds are present x4 quadrants. MUSCULOSKELETAL: She had 5/5 strength x4 extremities. She does have her fistula to the left distal forearm. NEUROLOGICAL: The cranial nerves 2-12 appear grossly intact. ASSESSMENT: 1. Nausea/vomiting, intractable. 2. Cystitis. 3. Hypokalemia. 4. End-stage renal disease with dialysis on Monday, Monday, and Monday. PLAN: She is being admitted to the medical unit. Placed on telemetry. Renal diet. We will consult Nephrology for her dialysis treatment. Apply SCDs for DVT prophylaxis. Place on Rocephin 1 g IV q.24 h. She was given potassium 40 mEq p.o. x1 in the emergency room. We will give her morphine 4 mg IV q.4 h. p.r.n. pain. We will need to update and confirm home medications. Recheck CBC, BMP in the a.m. Urine culture is pending. Further orders after seen by attending and by database consultant. Dictated by JED Polo for Edil New MD cc: JED Polo MD Brian R. James, MD
--- NOTE | 2019-04-23 22:01 | PROGRESS NOTE ---
DATE: 04/23/2019 The patient has nausea, vomiting, cystitis. Her abdominal exam is fairly benign. We are going to allow her to go. We will admit her, treat her UTI. She has had an abdominal pelvic CT which showed cystitis. Discharge condition is pending her clinical course. Continue dialysis and follow closely. This is a [id number] encounter note with Lety Pickens. cc: Edil New MD
[2019-04-23] MEDS ORDERED: MORPHINE IV PRN (23:06)
[2019-04-23] MEDS ORDERED: TYLENOL PO PRN (23:06)
[2019-04-23] MEDS: ZOFRAN IV PRN (23:36)
[2019-04-24 05:09] LABS: BASO# 0.04 X1000 (0.0-0.2); BASO% 0.6 % (0.0-0.8); EOS# 0.27 X1000 (0.0-0.7); EOS% 4.4 % (0.0-10.0); HEMATOCRIT 36.7 % (37.0-47.0); HEMOGLOBIN 11.5 g/dL (12.0-16.0); IMM GRAN# 0.02 X1000 (0.0-0.04); IMM GRAN% 0.3 % (0.0-0.5); LYMPH# 1.37 X1000 (1.2-3.4); LYMPH% 22.2 % (20.5-51.1); MCH 29.6 PG (27-31); MCHC 31.3 g/dL (33-37); MCV 94.3 FL (81-99); MONO# 0.52 X1000 (0.11-0.59); MONO% 8.4 % (1.7-9.3); MPV 9.4 FL (7.4-10.4); NEUT# 3.96 X1000 (1.4-6.5); NEUT% 64.1 % (42.2-75.2); PLT 108 X1000 (130-400); RBC 3.89 XMIL (4.2-5.4); RDW 14.9 % (11.5-14.5); WBC 6.18 X1000 (4.8-10.8)
[2019-04-24 05:24] LABS: CALCIUM 7.3 mg/dL (8.8-10.2)
[2019-04-24] MEDS ORDERED: TIGHT: 0.2 ML/HR FOR DIALYSIS MISC PRN (06:23)
[2019-04-24] MEDS ORDERED: NS 2,000 ML MISC PRN (06:23)
[2019-04-24] MEDS ORDERED: HEPARIN IV PRN (06:23)
[2019-04-24] MEDS: ZOFRAN IV PRN (08:58)
--- NOTE | 2019-04-24 13:03 | NEPHROLOGY CONSULTATION ---
DATE: 04/24/2019 Chief complaint: I have been vomiting, having diarrhea, and not eating. HPI: Mrs. Robles is an 78-year-old white female who presents [facility] with complaints of nausea, vomiting, and decreased appetite over the last 5 to 7 days. She was recently here on 04/16 with a diagnosis of a UTI that was treated with antibiotics. She has a past medical history of chronic kidney disease 5D known to our service with hemodialysis on Monday, Monday, and Monday, hypertension, and concussion status post fall previous this year. Upon CT of abdomen and pelvis she was found to have bladder wall thickening suggestive of cystitis and was admitted to the first floor for further evaluation and treatment. She came in under her dry weight at her dialysis treatment Monday but was able to complete it. She denies any shortness of breath, fever or chills, or blood in her urine or stool. She cannot tell us which antibiotic she was on last week. Past medical history: chronic kidney disease stage 5D with Dialysis on Monday, Monday, Monday, hypertension, previous CVA, concussion earlier this year, Gerd, asthma, and arthritis. Past surgical history: appendectomy, hysterectomy, bladder reconstruction, dialysis access. Social history: she lives with her . She denies any tobacco, alcohol, or illicit drug use. Family history: noncontributory Allergies: Iodinated contrast media, sulfa, erythromycin Home medications: allopurinol, Coreg CR, Colace, Flonase, Advair, Lantus, indapamide, Synthroid, Singulair, Macrobid, zofran, MiraLAX, Avista, Crestor, Vesicare, ultram. Review of systems: neurological: denies any altered mental status or confusion. Eyes: denies blurriness, dryness, or change in visual acuity. ENT: denies tinnitus or change in hearing. Integumentary: denies color change, rash or itch. Respiratory: denies shortness of breath orthopnea. Cardiovascular: denies palpitations or chest pain. GI: admits to nausea and vomiting without abdominal tenderness. : denies any color change amount or odor in urine. Endocrine: denies excessive thirst or hunger. Musculoskeletal: denies any new pain or weakness in extremities. Labs: WBC 6.18, hemoglobin 11.5, hematocrit 36.7, platelet count 108, sodium 141, potassium 3.0, chloride 98, carbon dioxide 23, anion gap 20, BUN 17, creatinine 6.0, calcium 7.3, urinalysis: 50 protein, large leukocytes, small blood, TNTC WBC. Intake 50, output 100. Imaging: CT of abdomen pelvis without contrast. Urinary bladder wall thickening suggesting cystitis, diverticulosis coli, mild splenomegaly, atrophic kidneys, small stable stones at the upper left pole at the left kidney. Physical exam: vitals temperature 97.2, pulse 75, respirations 14, blood pressure 135/66, 02 sat 95% on room air. General: elderly white female lying in bed and no acute distress. HEENT: normocephalic, atraumatic pupils equal round and reactive. Dry mucous membranes. Trachea midline. Skin: warm and dry. Neck:Supple, no jugular vein distention noted Cardiovascular: S1, S2, regular rate and rhythm no murmur gallops noted. Abdomen: soft, mildly tender, nondistended. Bowel sounds present. : not inspected Extremities: no clubbing, cyanosis or edema noted. Neurological: alert and oriented to person, place, and time. Assessment and plan: Chronic kidney disease stage 5D. Patient will have her routine dialysis treatment with added fluids. Electrolytes and acid base balance. Again she will be receiving her routine dialysis treatment today except with the 4.0 potassium bath Anemia. Stable. Nausea and vomiting. Denies this at present, has zofran on board. Diarrhea. We will collect a stool sample and test for blood and C diff. Urinary infection. Receiving rocephin 1 gram Qday. cc: MD TANYA Arnett
[2019-04-24] MEDS ORDERED: ROCEPHIN 1 GM in NS 50 ML IV SCH (17:00)
--- NOTE | 2019-04-24 18:58 | PROGRESS NOTE ---
DATE: 04/24/2019 SUBJECTIVE: Patient has no major complaints. The nausea and vomiting stopped, but she is not really eating. No diarrhea so far. OBJECTIVE: Blood pressure is 138/71, heart rate 69, respiratory 16, temperature 98, degrees 97% on room air.Cardiovascular: Regular rate and rhythm. Pulmonary: Bilateral breath sounds, clear to auscultation. GI: Soft, nontender, nondistended. Bowel sounds were positive. LABORATORY DATA: White count 6, hemoglobin and hematocrit 11 and 36, platelets 108,000. Potassium is 3. PROBLEM LIST: 1. Nausea and vomiting, possible cystitis. Although, I am not sure those changes on CT may not be related to chronic anuria and minimal, because her urine culture is negative. We will continue antibiotics right now. I think we may need to evaluate her for gastroparesis. She is diabetic. I am going to order gastric emptying. I do not see that it has been done recently. She had an abdominal ultrasound in December that was negative. 2. End-stage renal. We will continue treatments and follow. 3. Diabetes. Unclear level of control, although, her sugars are pretty well controlled, but we will get an A1c and follow. DISPOSITION: Pending her clinical course. Right now, she really has not eaten any solid food, so we are going to continue to monitor. cc: Edil New MD
[2019-04-24] MEDS: [UNRECOGNIZED DRUG - OTHER] BOTH EYES SCH (20:37)
[2019-04-24] MEDS: HEPARIN SUBQ SCH (20:38)
[2019-04-25 05:30] LABS: BASO# 0.04 X1000 (0.0-0.2); BASO% 0.8 % (0.0-0.8); EOS% 4.1 % (0.0-10.0); HEMATOCRIT 37.4 % (37.0-47.0); HEMOGLOBIN 11.6 g/dL (12.0-16.0); LYMPH# 1.09 X1000 (1.2-3.4); LYMPH% 22.5 % (20.5-51.1); MCH 29.7 PG (27-31); MCV 95.9 FL (81-99); MONO# 0.44 X1000 (0.11-0.59); MONO% 9.1 % (1.7-9.3); MPV 9.5 FL (7.4-10.4); NEUT# 3.08 X1000 (1.4-6.5); NEUT% 63.5 % (42.2-75.2); PLT 99 X1000 (130-400); RDW 14.9 % (11.5-14.5); WBC 4.85 X1000 (4.8-10.8)
[2019-04-25 05:38] LABS: HEMOGLOBIN A1C 5.8 % (4.8-6.0)
[2019-04-25 06:15] LABS: ALBUMIN 3.3 g/dL (3.5-5.0); CALCIUM 8.1 mg/dL (8.8-10.2); CREATININE 3.8 mg/dL (0.5-0.9); PHOSPHORUS 3.1 mg/dL (2.7-4.5); POTASSIUM 3.1 mmol/L (3.5-5.1)
[2019-04-25] MEDS: HEPARIN SUBQ SCH ×2 (10:19→20:13)
--- NOTE | 2019-04-25 10:21 | Diag Imaging Result Doc PS360 ---
EXAM: GASTRIC EMPTYING INDICATION: n/v TECHNIQUE: 586 uCi of technetium 99 sulfur colloid was administered orally in oatmeal and images were obtained in usual fashion. COMPARISON: None. FINDINGS: Normal activity is seen in the gastric lumen initially. Note that the patient discontinued the study at 90 minutes due to nausea. At 90 minutes, there was approximately 34% emptying. The extrapolated time to one half emptying is 131 minutes. IMPRESSION: Incomplete study for the reasons discussed above but there is still delayed gastric emptying. Electronically signed by Shemar Eagle 04/25/2019 10:19 AM
[2019-04-25] MEDS ORDERED: LEVAQUIN 250 MG/D5W 250 MG/50 ML IVPB IV SCH (14:00)
--- NOTE | 2019-04-25 18:38 | PROGRESS NOTE ---
DATE: 04/25/2019 SUBJECTIVE: The patient has no major complaints. OBJECTIVE: Blood pressure 155/62, heart rate 64, respiratory rate 18, and temperature 97.3 degrees.Cardiovascular: Regular rate and rhythm. Pulmonary: Bilateral breath sounds clear to auscultation. GI: Soft, nontender, and nondistended. Bowel sounds are positive. LABORATORY DATA: White count 4, hemoglobin and hematocrit 11 and 37, and platelets 99,000. Potassium 3.1. MICROBIOLOGY: Gram-positive cocci. PROBLEM LIST: 1. Cystitis, gram-positive cocci. We will change to Levaquin. Await culture results. 2. Gastroparesis. We will start low-dose Reglan that is renally dosed, and monitor. 3. End-stage renal. She is on dialysis Monday, Monday, Monday. Nephrology is following. 4. Type 2 diabetes is well controlled. DISPOSITION: Anticipate discharge tomorrow. cc: Edil New MD
[2019-04-25] MEDS: ZOFRAN IV PRN (18:59)
--- NOTE | 2019-04-25 19:49 | NEPHROLOGY PROGRESS NOTE ---
DATE: 04/25/2019 Subjective: patient lying in bed watching television. Voices complaints of nausea relieved with Zofran. Denies any other uremic complaints. Diarrhea is improved. Objective: vitals temperature 97.9, pulse 62, respirations 16, blood pressure 158/70, 02 sat 100% on room air. General: elderly white female lying in bed and no acute distress. HEENT: normocephalic, atraumatic pupils equal round and reactive. Dry mucous membranes. Trachea midline. Skin: warm and dry. Neck:Supple, no jugular vein distention noted Cardiovascular: S1, S2, regular rate and rhythm no murmur gallops noted. Abdomen: soft, mildly tender, nondistended. Bowel sounds present. : not inspected Extremities: no clubbing, cyanosis or edema noted. Neurological: alert and oriented to person, place, and time. Labs: Wbc 4.85, hemoglobin 11.6, hematocrit 37.4, platelet count 99, sodium 137, potassium 3.1, chloride 99, carbon dioxide 26, anion gap 12, BUN 10, creatinine 3.8, albumin 3.3. Intake for 10, output 200. Impression: Chronic kidney disease stage 5D. Patient received her routine dialysis treatment yesterday with added fluids. No change in treatment. Electrolytes. Stable. Acid-base balance. stable Nausea and vomiting. Gastric emptying study was discontinued after 90 minutes per patient due to nausea. Results are incomplete however they suggest there is delayed gastric emptying. Hypovolemia. Improved after volume resuscitation. Diarrhea is improved. cc: Perry El MD MTDD
[2019-04-25] MEDS: [UNRECOGNIZED DRUG - OTHER] BOTH EYES SCH (20:13)
[2019-04-26] MEDS: ZOFRAN IV PRN ×2 (00:59→09:35)
[2019-04-26 05:52] LABS: BASO# 0.02 X1000 (0.0-0.2); BASO% 0.5 % (0.0-0.8); EOS# 0.21 X1000 (0.0-0.7); EOS% 5.1 % (0.0-10.0); HEMATOCRIT 39.7 % (37.0-47.0); HEMOGLOBIN 12.1 g/dL (12.0-16.0); LYMPH# 0.95 X1000 (1.2-3.4); LYMPH% 23.2 % (20.5-51.1); MCH 29.4 PG (27-31); MCHC 30.5 g/dL (33-37); MCV 96.6 FL (81-99); MONO# 0.32 X1000 (0.11-0.59); MONO% 7.8 % (1.7-9.3); MPV 9.4 FL (7.4-10.4); NEUT% 63.4 % (42.2-75.2); PLT 105 X1000 (130-400); RBC 4.11 XMIL (4.2-5.4); RDW 14.7 % (11.5-14.5)
[2019-04-26] MEDS ORDERED: TIGHT: 0.2 ML/HR FOR DIALYSIS MISC PRN (06:21)
[2019-04-26] MEDS ORDERED: NS 2,000 ML MISC PRN (06:21)
[2019-04-26] MEDS ORDERED: HEPARIN IV PRN (06:21)
[2019-04-26 06:26] LABS: CALCIUM 8.2 mg/dL (8.8-10.2); POTASSIUM 3.4 mmol/L (3.5-5.1)
[2019-04-26 06:37] LABS: CREATININE 5.7 mg/dL (0.5-0.9)
[2019-04-26] MEDS: HEPARIN SUBQ SCH (09:38)
[2019-04-26] MEDS ORDERED: AMOXIL PO SCH ×2 (11:15→17:00)
[2019-04-26 12:12] VITALS: BP 151/67
--- NOTE | 2019-04-26 13:12 | NEPHROLOGY PROGRESS NOTE ---
DATE: 04/26/2019 SUBJECTIVE: She is lying in bed. Remains weak. No further nausea, vomiting, or diarrhea. OBJECTIVE: Vital Signs: Blood pressure 142/65, heart rate 70, respiration 18, afebrile. General: No acute distress. Skin: Warm and dry. Neck: Neck veins are not appreciated. Heart: Regular. No gallops. Lungs: Equal, no crackles. Abdomen: Soft, obese, nontender. Bowel sounds present. Extremities: No edema, clubbing, or cyanosis. IMPRESSION: Chronic kidney disease 5D. She will have her routine dialysis today but we will use a 4 potassium bath and we will use her last post dialysis weight as our target weight. Electrolytes and acid-base are acceptable aside from modest hypokalemia. Hemoglobin is in target. I will have physical therapy begin working with her to define her rehab needs. cc: Perry El MD
--- NOTE | 2019-04-26 14:52 | DISCHARGE SUMMARY ---
ADMISSION DATE: 04/23/2019 DISCHARGE DATE: 04/26/2019 PRIMARY CARE PHYSICIAN: Dr. Derian Dawn. ADMISSION DIAGNOSES: 1. Intractable nausea and vomiting. 2. Cystitis. 3. Hypokalemia. 4. End-stage renal disease on dialysis Monday, Monday, Monday. DISCHARGE DIAGNOSES: 1. Enterococcal faecalis urinary tract infection, cystitis. 2. Gastroparesis. 3. End-stage renal disease on dialysis on Monday, Monday, Monday. 4. Diabetes type 2, well controlled. SUMMARY OF FINDINGS: This is an 78-year-old female who presented to the ER with complaints of nausea and vomiting for a week and a half, not able to keep anything down. Had been diagnosed with a urinary tract infection on 04/16/2019 and given fluids and antibiotics. Went to see her primary care the next day but continued to feel bad. Does still make some urine and has a history of frequent UTIs despite being an end-stage renal disease on hemodialysis patient. We did a CT of the abdomen and pelvis that showed urinary bladder wall thickening suggesting cystitis, so she was admitted, placed on IV antibiotics. We consulted Nephrology to continue her dialysis treatments. She did have a low potassium in the emergency room at 3.1. We supplemented it. It is now up to 3.4. Her urine culture grew out an Enterococcal faecalis and was being treated appropriately with antibiotics, and so it is now felt that she can safely be discharged to rehab today. DISCHARGE MEDICATIONS: Include allopurinol 100 mg p.o. daily, a prescription for amoxicillin 500 mg p.o. daily, #7 with no refills, Coreg CR 12.5 mg p.o. at bedtime, Colace 100 mg p.o. daily p.r.n., Flonase 2 sprays nasally daily, Advair 250/50 one inhalation b.i.d., indapamide 2.5 mg p.o. daily, Lantus 50 units subcutaneous daily, Synthroid 50 mcg p.o. before breakfast, Singulair 10 mg p.o. daily, Macrobid 100 mg p.o. b.i.d., Zofran 4 mg p.o. t.i.d. p.r.n., MiraLAX 17 g p.o. at bedtime, Evista 60 mg p.o. daily, rosuvastatin 20 mg p.o. daily, VESIcare 5 mg p.o. daily and tramadol 50 mg p.o. q.6 hours p.r.n., #25 with no refills. FOLLOWUP: She will need to follow up with her primary care physician once she completes her rehab stay. TIME SPENT: A 35 minute discharge. Dictated by JED Polo for Edil New MD cc: JED Polo MD Brian R. James, MD
--- NOTE | 2019-04-26 15:30 | Diag Imaging Result Doc PS360 ---
EXAM: CHEST-PORTABLE 04/26/2019 HISTORY: rehab placement TECHNIQUE: AP portable upright at 1517 COMMENT: The inspiration is suboptimal. Considering differences in inspiration and technique there has been no significant change since 02/11/2019. IMPRESSION: Stable chest. Electronically signed by Dylan Rey 04/26/2019 3:27 PM
--- NOTE | 2019-04-27 07:10 | PROGRESS NOTE ---
DATE: 04/26/2019 SUBJECTIVE: Patient has no major complaints. OBJECTIVE: Vital Signs: Blood pressure 151/67, heart rate of 72, respiratory rate 18, and temperature 97.8 degrees. Cardiovascular: Regular rate and rhythm. Pulmonary: Bilateral breath sounds and clear to auscultation. SUMMARY: Overall, she is doing better. Plan to discharge her to rehab today. Initially, we were planning to do home with home health, but she is apparently too weak to get up and around. Rest of the discharge details will be per JED Polo. TIME SPENT: 32 minute discharge summary. cc: Edil New MD
== END 2019-04-26 19:00 | DRG 689 ==
LOC: ED 14:32 → 1N 23:00 → SUATTDRO 23:00
PROVIDERS: ATTEND Internal Medicine

== ENCOUNTER 2019-05-29 16:08 | Inpatient (IN) ==
--- NOTE | 2019-05-29 16:54 | PROVIDER DOCUMENTATION ---
HPI-General Adult - General Chief Complaint: Fall Stated Complaint: FALLS..... Time Seen by Provider: 05/29/19 16:40 Source: patient Allergies/Adverse Reactions: Patient Allergies Allergy/AdvReac Type Severity Reaction Status Date / Time Iodinated Contrast Media Allergy Severe ANAPHYLAXIS Verified 04/23/19 15:06 Sulfa (Sulfonamide Allergy Intermediate NAUSEA/VOMI Verified 04/23/19 15:06 Antibiotics) TING erythromycin base AdvReac Severe AMS Verified 04/23/19 15:06 [Erythromycin Base] Home Medications: Home Medication List Medication Instructions Recorded Confirmed Last Taken Type Carvedilol C.r. [Coreg Cr] 12.5 mg PO HS 11/16/13 02/07/19 02/06/19 21:00 History Fluticasone/Salmeterol [Advair 250 mg INH BID 11/16/13 02/07/19 02/06/19 21:00 History 250-50 Diskus] ROSUVAstatin [Crestor] 20 mg PO DAILY 11/16/13 02/06/19 02/06/19 21:00 History Raloxifene [Evista] 60 mg PO DAILY 11/16/13 02/06/19 02/06/19 21:00 History Solifenacin Succinate [Vesicare] 5 mg PO DAILY 11/16/13 02/06/19 02/06/19 21:00 History Allopurinol 100 mg PO DAILY 04/04/16 02/06/19 02/06/19 21:00 History Fluticasone 50 Mcg Nasal [place] 2 spray ARYAN DAILY 04/04/16 02/06/19 02/06/19 21:00 History [Flonase] Indapamide 2.5 mg PO DAILY 04/04/16 02/06/19 02/06/19 21:00 History Montelukast Sodium [Singulair] 10 mg PO DAILY 04/04/16 02/06/19 02/06/19 21:00 History Docusate Sodium [Colace] 100 mg PO DAILY PRN #20 cap 10/21/17 02/06/19 02/06/19 21:00 Rx Levothyroxine [Synthroid] 50 microgm PO ACB tablet 05/28/18 02/06/19 02/06/19 21:00 Rx Insulin Glargine,Hum.rec.anlog 50 unit SQ DAILY 02/06/19 02/06/19 02/06/19 21:00 History [Lantus Solostar] Polyethylene Glycol 3350 [Miralax] 17 gm PO HS 02/07/19 02/07/19 02/06/19 21:00 History Nitrofurantoin Monohyd/M-Cryst 100 mg PO BID #10 cap 04/16/19 Unknown Rx [Macrobid 100 mg Capsule] Ondansetron HCl [Zofran] 4 mg PO TID PRN #10 tab 04/16/19 Unknown Rx Amoxicillin 500 mg PO DAILY #7 cap 04/26/19 Unknown Rx Tramadol [Ultram] 50 mg PO Q6H PRN PRN #25 tab 04/26/19 Unknown Rx - History of Present Illness -Gen Adult Nature of Presenting Problems: 78 YOF PRESENTS WITH C/O WEAKNESS, FALLS AND AMS FROM HOME ON THE REC OF [facility] [place]. SHE REPORTS SHE FEELS WEAK AND GENERALLY UNWELL. DENIES SPECIFIC COMPLAINTS. SHE DOES CONFIRM THAT SHE HAS FALLEN. DENIES BEING ON BLOOD THINNERS. DID HIT HER HEAD Location of Pain/Injury: reports: none Pain Radiation: reports: no radiation Quality of Pain: reports: none Severity: reports: moderate Onset/Duration: reports: unsure Timing: reports: still present Context/Activities at Onset: reports: none Modifying Factors: improves with: nothing Associated Symptoms: reports: fatigue, weakness Similar Symptoms Previously?: No Recently seen or treated by another doctor?: No Review of Systems - Adult - REVIEW OF SYSTEMS - ADULT Constitutional: reports: no symptoms reported. denies: see HPI, chills, fever, fatique, night sweats, weight gain, weight loss, other Eyes: reports: no symptoms reported. denies: see HPI, discharge, dry eyes, decreased vision, blurred vision, double vision, eye pain, redness, other Ears, Nose, Mouth & Throat: reports: no symptoms reported. denies: see HPI, ear discharge, ear pain, hearing loss, tinnitus, epistaxis, sinus problem, nose pain, loose teeth, mouth/dental pain, mouth swelling, hoarseness, throat pain, throat swelling, other Cardiovascular: reports: no symptoms reported. denies: see HPI, chest pain, edema, heart murmur, irregular heart rate, orthopnea, palpitations, poor circulation, PND, syncope, other Gastrointestinal: reports: no symptoms reported. denies: see HPI, abdominal pain, hematemesis, constipation, diarrhea, difficulty swallowing, frequent heartburn, nausea, poor appetite, rectal bleeding, vomiting, other Genitourinary: reports: see HPI (ON HD, GRAFT IN LUE, GOOD BRUIT AND THRILL). denies: no symptoms reported, dysuria, discharge, frequency, flank pain, frequent UTI's, hematuria, hesitency, incontinence, urinary retention, urgency, other Musculoskeletal: reports: muscle weakness (GENERALIZED). denies: no symptoms reported, see HPI, bone pain, back pain, frequent leg cramps, joint pain, joint swelling, muscle aches, neck pain, other Integumentary: reports: no symptoms reported. denies: see HPI, hives, hair loss, itching, mole changes, nail changes, rash, skin sores/ulcer, skin thickening, other Neurological: reports: see HPI (AMS PER SPOUSE BUT ANSWERS ORIENTATION QUESTIONS W/O DIFFICULTY), other (FALLS). denies: no symptoms reported, ataxia, dizziness/vertigo, headache/migraines, loss of balance, numbness, paresthesia, seizure, slurred speech, syncope, tremors Psychiatric: reports: no symptoms reported. denies: see HPI, anxiety, anti- depressant use, alcohol/drug dependence, depression, emotional problems, insomnia, panic attacks, suicidal thoughts, other Endocrine: reports: no symptoms reported. denies: see HPI, change in skin pigment, excessive sweating, goiter, cold intolerance, heat intolerance, increased hunger, increased thirst, polyuria, other Hematologic/Lymphatic: reports: no symptoms reported. denies: see HPI, blood clots, easy bruising, low blood count, lymphedema, prolonged bleeding, swollen lymph nodes, transfusions, other Allergic/Immunologic: reports: no symptoms reported. denies: see HPI, allergic reactions, allergic rhinitis, asthma, eczema, food allergy, frequent infections, hay fever, hives, positive PPD, urticaria, other Past History - Adult - PAST MEDICAL HISTORY-ADULT Review of Records: reports: Nursing Assessment Review, Social history reviewed & non-contributory. Major Childhood Illnesses: reports: denies history Cardiovascular: reports: denies history, HTN Respiratory: reports: asthma Gastrointestinal: reports: GERD, other Obstetrical/Gynecological: reports: denies history Genitourinary: reports: dialysis, ESRD, kidney disease Musculoskeletal: reports: arthritis, chronic pain, spinal fracture Neurological: reports: CVA Psychiatric: reports: denies history Endocrine/Immune: reports: denies history Other Conditions: reports: denies history - PRIOR SURGERIES/PROCEDURES Surgical/Procedure History: reports: appendectomy, hysterectomy, other (bladder reconstrution) - IMMUNIZATION STATUS Childhood Immunizations: See Nurse Assessment Flu Vaccine: See Nurse Assessment - FAMILY HISTORY Family History: CAD over 55 yo, HTN, other (father AAA) Physical Exam-General - PHYSICAL EXAM-ADULT Initial Vital Signs Reviewed: Yes - CONSTITUTIONAL General Appearance: alert, no apparent distress - EYES Eyes: PERRL/EOMI, pink conjunctivae - HEAD, EARS, NOSE, MOUTH & THROAT HENMT: normocephalic/atraumatic, moist mucous membranes, normal ENT inspection - NECK Neck: non-tender, full range of motion, supple - RESPIRATORY Respiratory: chest non-tender, lungs clear, normal breath sounds - CARDIOVASCULAR Cardiovascular: normal peripheral pulses, tachycardia - GASTROINTESTINAL (ABDOMEN) Abdominal Exam: normal bowel sounds, non tender, soft - LYMPHATIC Lymphatic: no adenopathy - MUSCULOSKELETAL Back Exam: normal inspection, no CVA tenderness, no vertebral tenderness Extremity: normal range of motion, non-tender. negative: normal gait - SKIN Integumentary: normal color, normal turgor, warm/dry - NEUROLOGIC Neurologic: negative: aphasia, facial droop, focal weakness - PSYCHIATRIC Psych/Mental Status: normal mood/affect, oriented x 3 (TO PLACE, TIME, SITUATION AND TO PERSON), disheveled Progress - PLAN OF CARE/RESULTS Progress/Plan/Lab Results: Vital Signs - 8 hr 05/29/19 16:10 Temperature 98.1 F Pulse Rate 105 H Respiratory Rate 18 Blood Pressure 78/50 O2 Sat by Pulse Oximetry 100 Laboratory Results - last 24 hr 05/29/19 16:15 POC Glucose 318 H D Orders Category Date Time Status CT HEAD W/O CONTRAST [CT] Stat Exams 05/29/19 16:46 Ordered CBC WITH ELECTRONIC DIFF [HEME] Stat Lab 05/29/19 16:46 Uncollected COMPREHENSIVE METABOLIC PANEL [CHEM] Stat Lab 05/29/19 16:46 Uncollected PROTIME WITH INR [COAG] Stat Lab 05/29/19 16:46 Uncollected PTT [COAG] Stat Lab 05/29/19 16:46 Uncollected UA NIMS W/REFLEX CULT [URINALYSIS] Stat Lab 05/29/19 16:46 Uncollected EKG [EKG] Stat Ther 05/29/19 16:46 Ordered Result Diagrams: 05/29/19 17:02 05/29/19 17:02 - XRAY 1 XRAY Study: Chest Impression: See EMR Report (EXAM: CHEST-1 VIEW 05/29/2019 HISTORY: sepsis protocol TECHNIQUE: AP portable erect at 1836 COMMENT: There are platelike opacities in the lingula which are similar in appearance to 04/26/2019. The inspiration is generally suboptimal. There is no evidence of focal opacity. IMPRESSION: Chronic atelectasis versus fibrosis in the lingula. Electronically signed by Dylan Rey 05/29/2019 6:45 PM 05/29/19 1845 Interpreting Physician: Dylan Rey MD Dictated Date/Time: 05/29/19 1844 cc: Makayla Yuan; Derian Dawn MD) - CONSULTS/PCP/HOSPITALIST Notification #1 *Consult/PCP/Hospitalist*: DR CARABALLO Time Discussed: 19:26 Consult Disposition: Admit Departure - Departure Date of Disposition Decision: 05/29/19 Time of Disposition Decision: 19:22 DIAGNOSIS: Fall at home, UTI (urinary tract infection), AMS (altered mental status), ESRD (end stage renal disease), Hypotension Disposition: ADMITTED INPATIENT 09 Certified Medical Emergency: Emergent Condition: Fair Referrals and Follow-Ups: Derian Dawn MD [Primary Care Provider] - - Critical Care Note This patient required my direct & personal management of CC.: No Attestation - Physician/ JG Attestation Patient care was provided by Advanced Practice Provider:: Yes Advanced Practice Provider:: Makayla Yuan Advanced Practice Provider documentation review:: The Mid-level provider d ocumentation, treatment plan and medical decision making was reviewed by the physician who agrees with all treatment and medical decision making by the MLP. The physician spent face to face time with patient:: No Advanced Practice Provider documentation review:: Supervising physician onsite and consulted in the evaluation and care of this patient. The physician did not have a face to face encounter with the patient.
[2019-05-29 17:15] LABS: URINE SOURCE CATH
[2019-05-29 17:30] LABS: BILIRUBIN URINE NEGATIVE (NEGATIVE); BLOOD URINE MODERATE (NEGATIVE); COLOR ORANGE; GLUCOSE URINE NEGATIVE (NEGATIVE); KETONE URINE TRACE mg/dL (NEGATIVE); LEUKOCYTES URINE LARGE (NEGATIVE); NITRITE URINE NEGATIVE (NEGATIVE); PH URINE 6.5; PROTEIN URINE 200 mg/dL (NEGATIVE); SP GRAVITY URINE 1.009; TURBIDITY URINE TURBID (CLEAR); UROBILINOGEN URINE NORMAL (NORMAL)
[2019-05-29 17:30] LABS: INR 1.16
--- NOTE | 2019-05-29 17:30 | Diag Imaging Result Doc PS360 ---
EXAM: CT HEAD W/O CONTRAST 05/29/2019 HISTORY: FALL TECHNIQUE: This exam was performed using automated exposure control, adjustment of mA or kV according to patient size, and/or use of iterative reconstruction technique. COMMENT: There are calcifications in the left vertebral and both internal carotid arteries. There are some mild patchy lucencies in the periventricular white matter particularly around the frontal horns. There is no evidence of bleed or abnormal extra-axial fluid collection and no mass effect is present. Compared to 12/12/2018 the appearance of the brain has not changed significantly. The visualized paranasal sinuses are clear. The calvarium is intact. IMPRESSION: No evidence of acute intracranial disease. Electronically signed by Dylan Rey 05/29/2019 5:28 PM
[2019-05-29 17:31] LABS: ALB/GLOB RATIO 1.4; ALBUMIN 3.4 g/dL (3.5-5.0); CALCIUM 7.6 mg/dL (8.8-10.2); CREATININE 4.5 mg/dL (0.5-0.9); POTASSIUM 4.4 mmol/L (3.5-5.1); PTT 33.2 Seconds (22.3-41.8); TOTAL BILIRUBIN 0.43 mg/dL (0.20-1.00); TOTAL PROTEIN 5.8 g/dL (6.3-8.3)
[2019-05-29 17:32] LABS: BASO# 0.02 X1000 (0.0-0.2); BASO% 0.3 % (0.0-0.8); EOS# 0.34 X1000 (0.0-0.7); EOS% 5.6 % (0.0-10.0); HEMATOCRIT 36.1 % (37.0-47.0); HEMOGLOBIN 11.1 g/dL (12.0-16.0); LYMPH# 1.28 X1000 (1.2-3.4); LYMPH% 21.2 % (20.5-51.1); MCH 29.7 PG (27-31); MCHC 30.7 g/dL (33-37); MCV 96.5 FL (81-99); MONO# 0.67 X1000 (0.11-0.59); MONO% 11.1 % (1.7-9.3); MPV 10.5 FL (7.4-10.4); NEUT# 3.72 X1000 (1.4-6.5); NEUT% 61.8 % (42.2-75.2); PLT 91 X1000 (130-400); RBC 3.74 XMIL (4.2-5.4); RDW 15.8 % (11.5-14.5); WBC 6.03 X1000 (4.8-10.8)
[2019-05-29 17:59] LABS: UR EPITHELIAL CELLS <10 /HPF (<10); URINE BACTERIA 4+ /HPF; URINE RBC TNTC /HPF (<10); URINE WBC TNTC /HPF (<10)
[2019-05-29] MEDS ORDERED: ROCEPHIN 1 GM in NS 50 ML IV ONE (18:11)
[2019-05-29 18:21] LABS: URINE CASTS NONE SEEN; URINE CRYSTALS NONE SEEN; URINE SMALL ROUND CELLS TRANS PRESENT; URINE YEAST NONE SEEN
[2019-05-29] MEDS ORDERED: NS 500 ML IV ONE (18:26)
--- NOTE | 2019-05-29 18:28 | EKG Report ---
Test Performed on : 05/29/2019 4:55:53 PM Test Reason : WEAKNESS Blood Pressure : / mmHG Vent. Rate : 100 BPM Atrial Rate : 100 BPM P-R Int : 228 ms QRS Dur : 080 ms QT Int : 340 ms P-R-T Axes : 000 -29 -07 degrees QTc Int : 438 ms Sinus rhythm. with 1st degree AV block. Minimal voltage criteria for LVH, may be normal variant Inferior infarct , age undetermined Anterolateral infarct , age undetermined Abnormal ECG When compared with ECG of 16-APR-2019 18:27, (Unconfirmed) Significant changes have occurred Unconfirmed Result
--- NOTE | 2019-05-29 18:47 | Diag Imaging Result Doc PS360 ---
EXAM: CHEST-1 VIEW 05/29/2019 HISTORY: sepsis protocol TECHNIQUE: AP portable erect at 1836 COMMENT: There are platelike opacities in the lingula which are similar in appearance to 04/26/2019. The inspiration is generally suboptimal. There is no evidence of focal opacity. IMPRESSION: Chronic atelectasis versus fibrosis in the lingula. Electronically signed by Dylan Rey 05/29/2019 6:45 PM
[2019-05-29] MEDS: ROCEPHIN 1 GM in NS 50 ML IV SCH (23:00)
[2019-05-29] MEDS ORDERED: NS 1,000 ML IV SCH (23:00)
[2019-05-30] MEDS ORDERED: COLACE PO PRN (01:48)
[2019-05-30] MEDS ORDERED: DUONEB (A & A) INH PRN (01:51)
--- NOTE | 2019-05-30 02:34 | HISTORY AND PHYSICAL ---
CHIEF COMPLAINT: Altered mental status. HISTORY OF PRESENT ILLNESS: Ms Linda Robles is an 78-year-old female who has a history of diabetes mellitus, end-stage renal disease, bronchial asthma, hypertension, gastroesophageal reflux disease. The patient is not a good historian. However, she indicates she presented to the hospital because of confusion. ER records indicate the patient has had weakness as well as falls. She did have a CT scan of the brain done at time of presentation which was unremarkable. UA did show a picture suggestive of urinary tract infection. The patient admits to having dysuria. No hematuria or urinary calculi. The patient has now been admitted to the floor for further management. PAST MEDICAL HISTORY: 1. Hypertension. 2. Bronchial asthma. 3. Gastroesophageal reflux disease. 4. End-stage renal disease. 5. Arthritis. 6. Chronic pain syndrome. 7. History of CVA. PAST SURGICAL HISTORY: 1. Appendectomy. 2. Hysterectomy. 3. Bladder surgery. SOCIAL HISTORY: Patient lives with . Denies any history of cigarette smoking, alcohol, or drug use. ALLERGIES: No patient is allergic to iodinated contrast media, sulfa, as well as erythromycin. FAMILY HISTORY: Positive for hypertension as well as diabetes. MEDICATIONS: Include the following 1. Coreg CR 12.5 p.o. at bedtime. 2. Advair 250/50 to be taken as directed. 3. Crestor 20 mg p.o. daily. 4. Evista 60 mg p.o. daily. 5. VESIcare 5 mg p.o. daily. 6. Allopurinol 100 mg p.o. once a day. 7. Flonase nasal spray 2 sprays nasally daily. 8. Indapamide 2.5 mg p.o. daily. 9. Montelukast sodium 10 mg p.o. daily. 10. Docusate sodium 100 mg p.o. daily p.r.n. 11. Levothyroxine 50 mcg p.o. as directed. 12. Lantus insulin 15 units subcutaneous daily. 13. MiraLAX 17 g p.o. at bedtime. 14. Macrobid 100 mg p.o. twice a day. 15. Ondansetron 4 mg p.o. 3 times a day p.r.n. 16. Amoxicillin 500 mg p.o. daily. 17. Tramadol 50 mg p.o. q.6 hours p.r.n. Review of Systems. Constitutional: No fever. [employer]ODU[employer]: Headaches. Eyes: Blurred vision. ENT: No sinus problems. No hearing loss. Cardiovascular: No chest pain. Respiratory: No cough. Gastrointestinal: She has nausea, vomiting, but no abdominal pains. Dermatology: She denies any skin lesions. Musculoskeletal: Patient does have arthritis. Hematology: No bleeding problems. Endocrinology: She does have diabetes as well as thyroid disease. Psychiatric: She denies any anxiety or depression. PHYSICAL EXAMINATION: VITAL SIGNS ARE FOLLOWS: Temperature is 98.1 degrees, pulse 105, respiratory rate is 18, blood pressure is 78/50, oxygen saturation is 100%. HEENT: Atraumatic, normocephalic. She is anicteric. Pupils are dilated, poorly reactive to light. Extraocular movements intact. No oral lesions noted. NECK: No lymphadenopathy or thyromegaly. CARDIOVASCULAR: S1, S2. RESPIRATORY: Has evidence of good entry bilaterally. ABDOMEN: Soft, nontender. No masses felt. EXTREMITIES: No evidence of significant edema in the lower extremities. CENTRAL NERVOUS SYSTEM: No obvious focal deficit noted. LABS: WBC 6.03, hematocrit 36.1 with a platelet count of 91,000. INR is 1.61. Sodium is 134, potassium 4.4, chloride is 94, bicarb 27, BUN is 22, creatinine 4.5, glucose is 274. UA shows moderate amount of blood, large amount of leukocytes, numerous WBCs, numerous RBCs. X-ray of her chest shows chronic atelectasis versus fibrosis in the lingula. CT scan of the brain, no evidence of any acute intracranial processes. ASSESSMENT AND PLAN: 1. Urinary tract infection. Start patient on empiric antibiotics. Follow up on urine as well as blood cultures. 2. Metabolic encephalopathy. Most likely secondary to urinary tract infection. I expect the patient's mental status to improve while she is receiving antibiotics for UTI. 3. Sepsis. Continue antibiotics. Follow up on cultures. Intravenous fluids as needed. 4. Diabetes mellitus. Monitor blood sugar levels. Maintain patient on sliding scale insulin. Check hemoglobin A1c. 5. End-stage renal disease. Consult with Nephrology for hemodialysis while in the hospital. 6. Bronchial asthma. Nebulized bronchodilators as needed. 7. Gastroesophageal reflux disease. Maintain patient on proton pump inhibitor. 8. History of hypertension. Blood pressure currently on the low side. We will hold off on antihypertensive medications at this time. 9. Hypothyroidism. Check TFTs, resume levothyroxine 10. Deep vein thrombosis prophylaxis. Sequential compression devices. 11. Gastrointestinal prophylaxis. Proton pump inhibitor. cc: Segundo Trevino MD MTDD
--- NOTE | 2019-05-30 05:54 | EKG Report ---
Test Performed on : 05/30/2019 05:27:41 AM Test Reason : hx of htn Blood Pressure : / mmHG Vent. Rate : 076 BPM Atrial Rate : 076 BPM P-R Int : 206 ms QRS Dur : 076 ms QT Int : 408 ms P-R-T Axes : 056 -36 -08 degrees QTc Int : 459 ms Normal sinus rhythm. Left axis deviation Minimal voltage criteria for LVH, may be normal variant Inferior infarct , age undetermined Anterolateral infarct , age undetermined Abnormal ECG Confirmed by Biju WEBSTER, P.J.M ([id number]) on 05/31/2019 2:55:15 PM
[2019-05-30] MEDS: SYNTHROID PO SCH (06:30)
[2019-05-30] MEDS: PRILOSEC PO SCH (06:30)
[2019-05-30] MEDS: HUMULIN R SUBQ SCH ×4 (06:32→20:23)
[2019-05-30 07:12] LABS: URINE SOURCE CATH
[2019-05-30 07:15] LABS: BILIRUBIN URINE NEGATIVE (NEGATIVE); BLOOD URINE TRACE (NEGATIVE); COLOR BROWN; GLUCOSE URINE NEGATIVE (NEGATIVE); KETONE URINE NEGATIVE (NEGATIVE); LEUKOCYTES URINE LARGE (NEGATIVE); NITRITE URINE NEGATIVE (NEGATIVE); PH URINE 6.5; PROTEIN URINE 300 mg/dL (NEGATIVE); TURBIDITY URINE TURBID (CLEAR); UROBILINOGEN URINE NORMAL (NORMAL)
[2019-05-30 07:19] LABS: HEMOGLOBIN A1C 5.5 % (4.8-6.0)
[2019-05-30 07:21] LABS: UR EPITHELIAL CELLS >10 /HPF (<10); URINE BACTERIA 2+ /HPF; URINE WBC TNTC /HPF (<10)
[2019-05-30 07:26] LABS: URINE CASTS NONE SEEN; URINE CRYSTALS NONE SEEN; URINE SMALL ROUND CELLS NONE SEEN
[2019-05-30 07:27] LABS: URINE YEAST NONE SEEN
[2019-05-30] MEDS: ZYLOPRIM PO SCH (10:11)
[2019-05-30] MEDS: CRESTOR PO SCH (10:11)
[2019-05-30] MEDS: EVISTA PO SCH (10:11)
[2019-05-30] MEDS: VESICARE PO SCH (10:11)
[2019-05-30] MEDS: SINGULAIR PO SCH (10:12)
--- NOTE | 2019-05-30 11:29 | PROGRESS NOTE ---
DATE: 05/30/2019 SUBJECTIVE: Patient is definitely more awake today. Still a little bit confused but more alert in comparing with yesterday. OBJECTIVE: Vital Signs: Temperature 97.5 degrees, heart rate 82, respiratory rate 16, blood pressure 112/45, O2 saturation 99% on room air. General: This is an 78-year-old female lying in bed, in no acute distress, confused. Cardiovascular: S1, S2 heard. No murmurs, gallops, or rubs. Regular rate and rhythm. Respiratory: Clear bilaterally to auscultation. No work of breathing or using accessory muscles. Abdomen: Soft. Nontender to palpation. Bowel sounds present. No organomegaly. Extremities: No clubbing, cyanosis, or edema. Peripheral pulses present in both legs. Neurological: Patient is alert and oriented x3. Moves 4 extremities. LABORATORY DATA: Labs are still pending at time. ASSESSMENT AND PLAN: 1. Metabolic encephalopathy most likely related to urinary tract infection. Her mental status is improving. We will continue to monitor. 2. Urinary tract infection. Patient was complaining of dysuria that she confirmed this morning. There was a urine culture collected. We will continue with Rocephin. 3. Diabetes mellitus type 2. We will continue with sliding scale insulin and Accu-Chek before meals and also at bedtime. 4. End-stage renal disease. Patient received dialysis Monday. We will provide routine dialysis tomorrow. Dr. El has been consulted for medical management. 5. Gastroesophageal reflux disease. We will continue with Protonix. 6. Hypertension. Blood pressure currently is on the low side. We will continue to hold any hypertensive medications at this time. 7. Hypothyroidism. We will continue with home dose of levothyroxine. cc: Jose Ruth MD
[2019-05-30 12:10] LABS: BASO# 0.03 X1000 (0.0-0.2); BASO% 0.4 % (0.0-0.8); EOS# 0.51 X1000 (0.0-0.7); EOS% 7.2 % (0.0-10.0); HEMATOCRIT 35.5 % (37.0-47.0); HEMOGLOBIN 10.9 g/dL (12.0-16.0); IMM GRAN# 0.02 X1000 (0.0-0.04); IMM GRAN% 0.3 % (0.0-0.5); LYMPH# 1.22 X1000 (1.2-3.4); LYMPH% 17.2 % (20.5-51.1); MCH 29.9 PG (27-31); MCHC 30.7 g/dL (33-37); MCV 97.5 FL (81-99); MONO# 0.77 X1000 (0.11-0.59); MONO% 10.9 % (1.7-9.3); MPV 10.2 FL (7.4-10.4); NEUT# 4.54 X1000 (1.4-6.5); PLT 97 X1000 (130-400); RBC 3.64 XMIL (4.2-5.4); RDW 16.2 % (11.5-14.5); WBC 7.09 X1000 (4.8-10.8)
[2019-05-30 12:16] LABS: ALBUMIN 2.8 g/dL (3.5-5.0); CALCIUM 7.7 mg/dL (8.8-10.2); PHOSPHORUS 6.2 mg/dL (2.7-4.5); POTASSIUM 4.8 mmol/L (3.5-5.1)
[2019-05-30 12:20] LABS: EOS 2 % (1-10); LYMPHS 26 % (21-51); MONO 4 % (1-9); NRBC 1 % (0-0); SEGS 68 % (42-75)
[2019-05-30] MEDS: MYCOSTATIN POWDER TOP SCH (20:22)
[2019-05-30] MEDS: ROCEPHIN 1 GM in NS 50 ML IV SCH (23:44)
[2019-05-31 06:14] LABS: ALBUMIN 2.7 g/dL (3.5-5.0); CALCIUM 7.5 mg/dL (8.8-10.2); PHOSPHORUS 6.7 mg/dL (2.7-4.5); POTASSIUM 5.4 mmol/L (3.5-5.1)
[2019-05-31] MEDS: HUMULIN R SUBQ SCH ×3 (06:16→16:24)
[2019-05-31] MEDS: SYNTHROID PO SCH (06:16)
[2019-05-31] MEDS: PRILOSEC PO SCH (06:16)
[2019-05-31 06:18] LABS: CREATININE 7.8 mg/dL (0.5-0.9)
[2019-05-31 06:29] LABS: BASO# 0.04 X1000 (0.0-0.2); BASO% 0.7 % (0.0-0.8); EOS# 0.43 X1000 (0.0-0.7); HEMATOCRIT 32.8 % (37.0-47.0); HEMOGLOBIN 10.4 g/dL (12.0-16.0); IMM GRAN# 0.02 X1000 (0.0-0.04); IMM GRAN% 0.3 % (0.0-0.5); LYMPH# 1.44 X1000 (1.2-3.4); LYMPH% 23.5 % (20.5-51.1); MCH 30.8 PG (27-31); MCHC 31.7 g/dL (33-37); MONO# 0.62 X1000 (0.11-0.59); MONO% 10.1 % (1.7-9.3); MPV 10.4 FL (7.4-10.4); NEUT# 3.58 X1000 (1.4-6.5); NEUT% 58.4 % (42.2-75.2); PLT 113 X1000 (130-400); RBC 3.38 XMIL (4.2-5.4); RDW 15.4 % (11.5-14.5); WBC 6.13 X1000 (4.8-10.8)
[2019-05-31] MEDS: VESICARE PO SCH (08:10)
[2019-05-31] MEDS: EVISTA PO SCH (08:10)
[2019-05-31] MEDS: CRESTOR PO SCH (08:10)
[2019-05-31] MEDS: ZYLOPRIM PO SCH (08:10)
[2019-05-31] MEDS: SINGULAIR PO SCH (08:10)
[2019-05-31] MEDS: MYCOSTATIN POWDER TOP SCH (08:10)
[2019-05-31] MEDS ORDERED: NS 2,000 ML MISC PRN (11:55)
[2019-05-31 12:00] VITALS: BP 117/56
--- NOTE | 2019-05-31 15:03 | DISCHARGE SUMMARY ---
ADMISSION DATE: 05/29/2019 DISCHARGE DATE: 05/31/2019 DISCHARGE DIAGNOSES: 1. Metabolic encephalopathy, resolved. 2. Urinary tract infection. 3. Diabetes mellitus type 2. 4. End-stage renal disease, on dialysis. 5. Gastroesophageal reflux disease. 6. Hypertension. 7. Hypothyroidism. CONSULTATIONS: Dr. Perry El from Nephrology. PROCEDURES: Head CT done on admission showed no evidence of acute intracranial disease. HOSPITAL COURSE: This is an 78-year-old female, past medical history of diabetes, end- stage renal disease on dialysis, asthma, hypertension, who was brought to the emergency department because of confusion. Patient was found to have a UTI and sepsis so we told that is the reason why this patient was confused. The patient was started on IV antibiotics, she started getting better. The patient on the day discharge, she is alert and oriented x3. She was informed that she had a urine infection. The patient reports feeling fine and she thinks that she is ready to go home. No complaints at this point. DISCHARGE PHYSICAL EXAMINATION: Vital signs: Temperature 98.1 degrees, heart rate 78, respiratory rate 18, blood pressure 117/56, O2 saturation 99% on room air. General: This is an 78-year-old female lying in bed, in no acute distress. Cardiovascular: S1, S2 heard. No murmurs, gallops, or rubs. Regular rate and rhythm. Respiratory: Clear bilaterally to auscultation. No work of breathing or using accessory muscles. Abdomen: Soft. Nontender to palpation. Bowel sounds present. No organomegaly. Extremities: No clubbing, cyanosis, or edema. Peripheral pulses present in both legs. Neurological: The patient is alert and oriented x3. Moves 4 extremities. DISCHARGE DISPOSITION: Home to self-care. DISCHARGE MEDICATIONS: 1. Levaquin 250 mg 1 tablet p.o. daily for 7 days 2. Rest of home medications will not be modified. cc: Jose Ruth MD
--- NOTE | 2019-05-31 15:36 | NEPHROLOGY CONSULTATION ---
DATE: 05/31/2019 REASON FOR CONSULTATION: ESRD. HISTORY OF PRESENT ILLNESS: Ms. Robles is an 78-year-old, white female, who is well known to us. She only just got out of rehab from falls and concussion earlier in the year. She fell in her kitchen at home. No overt trauma to the head that she can relate. She has been observed for 48 hours and there is plan to discharge her after dialysis. She is on dialysis currently. No chest pain, palpitation, nausea, etc. PAST MEDICAL HISTORY: CKD 5D, diabetes, hypertension, history of CVA, history of concussion, toxic myopathy. HOME MEDICATIONS: Coreg, Advair, Crestor, Evista, allopurinol, diapamide, montelukast, docusate, levothyroxine, insulin, MiraLAX, Macrobid, ondansetron, amoxicillin, tramadol. ALLERGIES: IV contrast, sulfa, erythromycin. SOCIAL HISTORY: As above. Her lives with her, but he has significant physical debilitation. FAMILY HISTORY: Otherwise noncontributory. REVIEW OF SYSTEMS: Otherwise noncontributory. PHYSICAL EXAMINATION: Blood pressure 117/56, heart rate 78, respiration 18, afebrile.General: No acute distress. Skin: Warm and dry. Conjunctivae are pink. Pupils are equal. Oropharynx is dry. Neck veins are not distended. Heart: Regular. No gallops. Lungs: Equal. No crackles. Abdomen: Obese, soft, nontender. Bowel sounds present. Extremities: No edema, clubbing, or cyanosis. IMPRESSION/PLAN: 1. Chronic kidney disease 5D. She is currently receiving her routine hemodialysis treatment, 2K bath. We are using her outpatient dry weight. 2. Electrolytes/acid base. Modest hyperkalemia and metabolic acidosis, both of which will be addressed during dialysis. 3. Anemia, in target. 4. Hypoalbuminemia. Focus on diet. cc: Perry El MD
== END 2019-05-31 18:09 | disposition home health service (06) | DRG 871 ==
LOC: ED 16:08 → 1N 23:20 → SUATTDRO 23:20
PROVIDERS: ATTEND Internal Medicine

== ENCOUNTER 2019-06-10 10:37 | Inpatient (IN) ==
[2019-06-10] MEDS ORDERED: NS 500 ML IV ONE (11:12)
--- NOTE | 2019-06-10 11:50 | Diag Imaging Result Doc PS360 ---
EXAM: CHEST-PORTABLE HISTORY: syncope TECHNIQUE: Single view COMPARISON: 05/29/2019 FINDINGS: Poor inspiratory effort. The heart is not enlarged. The vessels are not distended. There are no infiltrates. No effusion identified. IMPRESSION: Negative exam. Electronically signed by Kevin Villarreal 06/10/2019 11:48 AM
[2019-06-10 11:57] LABS: BASO# 0.04 X1000 (0.0-0.2); BASO% 0.4 % (0.0-0.8); EOS# 0.16 X1000 (0.0-0.7); EOS% 1.7 % (0.0-10.0); HEMATOCRIT 38.5 % (37.0-47.0); HEMOGLOBIN 12.7 g/dL (12.0-16.0); LYMPH# 0.73 X1000 (1.2-3.4); LYMPH% 7.6 % (20.5-51.1); MONO# 0.54 X1000 (0.11-0.59); MONO% 5.6 % (1.7-9.3); MPV 9.9 FL (7.4-10.4); NEUT# 8.12 X1000 (1.4-6.5); NEUT% 84.7 % (42.2-75.2); PLT 129 X1000 (130-400); RBC 3.97 XMIL (4.2-5.4); RDW 15.7 % (11.5-14.5); WBC 9.59 X1000 (4.8-10.8)
[2019-06-10 11:59] LABS: INR 1.06; PROTIME 13.9 Seconds (11.0-16.0)
[2019-06-10 12:19] LABS: ALB/GLOB RATIO 1.4; ALBUMIN 4.2 g/dL (3.5-5.0); CALCIUM 8.7 mg/dL (8.8-10.2); CREATININE 3.6 mg/dL (0.5-0.9); POTASSIUM 5.2 mmol/L (3.5-5.1); TOTAL BILIRUBIN 0.54 mg/dL (0.20-1.00); TOTAL PROTEIN 7.1 g/dL (6.3-8.3)
--- NOTE | 2019-06-10 14:09 | EKG Report ---
Test Performed on : 06/10/2019 10:58:58 AM Test Reason : Stroke like symptoms Blood Pressure : / mmHG Vent. Rate : 096 BPM Atrial Rate : 096 BPM P-R Int : 202 ms QRS Dur : 084 ms QT Int : 378 ms P-R-T Axes : 085 -43 032 degrees QTc Int : 477 ms Normal sinus rhythm. Left axis deviation Minimal voltage criteria for LVH, may be normal variant Inferior infarct (cited on or before 29-MAY-2019) Anterolateral infarct (cited on or before 29-MAY-2019) Abnormal ECG When compared with ECG of 30-MAY-2019 05:27, Questionable change in initial forces of Lateral leads Nonspecific T wave abnormality has replaced inverted T waves in Inferior leads Unconfirmed Result
--- NOTE | 2019-06-10 14:33 | HISTORY AND PHYSICAL ---
HISTORY OF PRESENT ILLNESS: This is an 78-year-old, patient of Dr. Derian Dawn, who presented. She just had dialysis today, and felt very weak, and they said at home, she is not able to walk very much, and getting very weak, and concerned that she was very lethargic. Apparently, she went to rehab, and for about a month, she did not eat very well. She is eating better in the last couple of weeks. She denies fever or chills, chest pain or pleuritic pain or productive cough. She apparently has been treated for urinary tract infections, which have been ongoing, and so concerned about her weakness. Would like some help, and would like to go back to rehab. They went to [facility]. PAST MEDICAL HISTORY: 1. Hypertension. 2. Bronchial asthma. 3. Gastroesophageal reflux disease. 4. End-stage renal disease. 5. Arthritis. 6. Chronic pain syndrome. 7. History of CVA. PAST SURGICAL HISTORY: 1. Appendectomy. 2. Hysterectomy. 3. Bladder surgery. SOCIAL HISTORY: She lives with her . Her son was at the bedside. Denies any history of cigarette smoking or alcohol or drug use. ALLERGIES: The patient is allergic to iodinated contrast media, sulfa drugs, and erythromycin. FAMILY HISTORY: Positive for hypertension and diabetes. REVIEW OF SYSTEMS: General: Not sure if she has had any weight fluctuation. Apparently, she has been eating pretty well the last couple weeks, just complains of weakness and fatigue and difficulty walking around. HEENT: No change in visual or hearing acuity. Respiratory: No increased work of breathing or dyspnea. Cardiovascular: No chest pain or tachy palpitation. Gastrointestinal and Genitourinary: No gross hematuria or dysuria. Musculoskeletal/Neurologic: Just general weakness. Nothing focal. Endocrinologic/Hematologic: No significant history. PHYSICAL EXAMINATION: VITAL SIGNS: Temperature 98.1 degrees, pulse 80, respirations 18, blood pressure 111/70. HEENT: Pupils are equal and round. Conjunctiva pink. Sclerae clear. NECK: No distended neck veins. No cervical adenopathy. No thyromegaly. LUNGS: Clear in all lung jennings. CARDIOVASCULAR: Regular rhythm and rate without murmur or S3. ABDOMEN: Soft. SKIN: Warm and dry. IMAGING AND LABORATORY DATA: White count 9590, hematocrit 38, platelet count 129,000. Sodium 139, potassium 5.2, chloride 93, BUN 18, creatinine 3.6, blood sugar 114. AST 45, ALT is 44, albumin is 4.2. ProTime is 13.9, PTT is 28. Chest x-ray: Negative exam. No sign of infiltrate. There is poor inspiratory effort. Heart is not enlarged. ASSESSMENT AND PLAN: General weakness. Apparently some orthostatic hypotension. They gave her a little bit of fluid back. We will check her thyroid and B12 and folate, and will check a cortisol level, but just mainly failure to thrive and very weak. Will ask Physical Therapy to evaluate, ask Dr. El to follow along. Her volume status at this point looks pretty good. Her electrolytes look good. Acid-base status I think looks pretty good. She has a little bit of alkalosis, and that may be some volume contraction alkalosis. She has had urinary tract infections. Will check another urine and send it for culture. She is on allopurinol 100 mg daily, and will continue that. She was getting Augmentin 250/125 one tablet I believe once a day. I think that is for urinary tract infections. She gets Coreg CR 12.5 mg at bedtime, Colace 100 mg daily as needed, nasal spray with Flonase, Advair 250/50 one puff twice a day, indapamide 2.5 mg daily, SoloStar 50 units subcutaneously daily. Will, of course, check her pattern sugars, and put her on sliding scale. She is on Levaquin, I think 1 tablet a day, Synthroid 50 mcg by mouth daily, Singulair 10 mg daily, and Macrobid she is also taking 100 mg twice daily. I am not sure if she is still taking that. MiraLAX 17 grams at bedtime, Crestor 20 mg daily, Evista 60 mg a day, VESIcare 5 mg daily, Ultram 50 mg every 6 hours as needed. cc: Frank Em MD
[2019-06-10] MEDS ORDERED: COLACE PO PRN (14:40)
[2019-06-10] MEDS ORDERED: ZOFRAN IV PRN (14:40)
[2019-06-10] MEDS ORDERED: ULTRAM PO PRN (14:40)
[2019-06-10] MEDS: HUMALOG SUBQ SCH ×2 (16:00→21:16)
[2019-06-10 17:41] LABS: URINE SOURCE CATH
[2019-06-10 17:52] LABS: BILIRUBIN URINE NEGATIVE (NEGATIVE); BLOOD URINE NEGATIVE (NEGATIVE); COLOR ORANGE; GLUCOSE URINE NEGATIVE (NEGATIVE); KETONE URINE NEGATIVE (NEGATIVE); LEUKOCYTES URINE LARGE (NEGATIVE); NITRITE URINE NEGATIVE (NEGATIVE); PROTEIN URINE 30 mg/dL (NEGATIVE); SP GRAVITY URINE 1.012; TURBIDITY URINE CLEAR (CLEAR); UROBILINOGEN URINE NORMAL (NORMAL)
[2019-06-10 17:53] LABS: UR EPITHELIAL CELLS <10 /HPF (<10); URINE BACTERIA NEGATIVE /HPF; URINE RBC <10 /HPF (<10); URINE WBC 20-40 /HPF (<10)
--- NOTE | 2019-06-10 18:52 | PROVIDER DOCUMENTATION ---
This chart was entered by Karen Cochran Scribe, acting as scribe for Karen Merlos MD. HPI-Syncope/Dizziness - General Chief Complaint: Syncope Stated Complaint: SYNCOPE Time Seen by Provider: 06/10/19 11:04 Source: patient Allergies/Adverse Reactions: Patient Allergies Allergy/AdvReac Type Severity Reaction Status Date / Time Iodinated Contrast Media Allergy Severe ANAPHYLAXIS Verified 06/10/19 11:15 Sulfa (Sulfonamide Allergy Intermediate NAUSEA/VOMI Verified 06/10/19 11:15 Antibiotics) TING erythromycin base AdvReac Severe AMS Verified 06/10/19 11:15 [Erythromycin Base] Home Medications: Home Medication List Medication Instructions Recorded Confirmed Last Taken Type Carvedilol C.r. [Coreg Cr] 12.5 mg PO HS 11/16/13 06/10/19 06/09/19 History Fluticasone/Salmeterol [Advair 250 mg INH BID 11/16/13 06/10/19 06/09/19 History 250-50 Diskus] ROSUVAstatin [Crestor] 20 mg PO DAILY 11/16/13 06/10/19 06/09/19 History Raloxifene [Evista] 60 mg PO DAILY 11/16/13 06/10/19 06/09/19 History Solifenacin Succinate [Vesicare] 5 mg PO DAILY 11/16/13 06/10/19 06/09/19 History Allopurinol 100 mg PO DAILY 04/04/16 06/10/19 06/09/19 History Fluticasone 50 Mcg Nasal Ethan 2 spray ARYAN DAILY 04/04/16 06/10/19 06/09/19 History [Flonase] Indapamide 2.5 mg PO DAILY 04/04/16 06/10/19 06/09/19 History Montelukast Sodium [Singulair] 10 mg PO DAILY 04/04/16 06/10/19 06/09/19 History Docusate Sodium [Colace] 100 mg PO DAILY PRN #20 cap 10/21/17 06/10/19 06/09/19 Rx Levothyroxine [Synthroid] 50 microgm PO ACB tablet 05/28/18 06/10/19 06/09/19 Rx Insulin Glargine,Hum.rec.anlog 50 unit SQ DAILY 02/06/19 06/10/19 06/09/19 History [Lantus Solostar] Polyethylene Glycol 3350 [Miralax] 17 gm PO HS 02/07/19 06/10/19 06/09/19 History Nitrofurantoin Monohyd/M-Cryst 100 mg PO BID #10 cap 04/16/19 06/10/19 06/09/19 Rx [Macrobid 100 mg Capsule] Ondansetron HCl [Zofran] 4 mg PO TID PRN #10 tab 04/16/19 06/10/19 06/09/19 Rx Amoxicillin 500 mg PO DAILY #7 cap 04/26/19 06/10/19 06/09/19 Rx Tramadol [Ultram] 50 mg PO Q6H PRN PRN #25 tab 04/26/19 06/10/19 06/09/19 Rx Levofloxacin 250 mg PO DAILY #7 tab 05/31/19 06/10/19 06/09/19 Rx Amoxicillin/Potassium Clav 1 tab PO DAILY 06/10/19 06/10/19 06/10/19 History [Amox-Clav 250-125 mg Tablet] Levofloxacin [Levaquin] 1 tab PO DAILY 06/10/19 06/10/19 06/10/19 History - History of Present Illness-Syncope/Dizzy Nature of Presenting Problem: Patient is a 78 year old female who presents to the ED via EMS after having a syncopal episode. States having dialysis this morning. Prior Episodes: reports: single episode today Onset/Duration: reports: this morning Timing: reports: improving Context: reports: lost consciousness Loss of Consciousness: unsure Review of Systems - Adult - REVIEW OF SYSTEMS - ADULT ROS:: unobtainable per condition Constitutional: reports: no symptoms reported Eyes: reports: no symptoms reported Ears, Nose, Mouth & Throat: reports: no symptoms reported Cardiovascular: reports: no symptoms reported Respiratory: reports: no symptoms reported Gastrointestinal: reports: no symptoms reported Genitourinary: reports: no symptoms reported Musculoskeletal: reports: no symptoms reported Integumentary: reports: no symptoms reported Neurological: reports: no symptoms reported Psychiatric: reports: no symptoms reported Endocrine: reports: no symptoms reported Hematologic/Lymphatic: reports: no symptoms reported Allergic/Immunologic: reports: no symptoms reported All Other Systems: Reviewed and Negative Past History - Adult - PAST MEDICAL HISTORY-ADULT Review of Records: reports: Old Records Reviewed, Nursing Assessment Review, Medications Reviewed, Social history reviewed & non-contributory. Major Childhood Illnesses: reports: denies history Cardiovascular: reports: HTN Respiratory: reports: asthma, sleep apnea Gastrointestinal: reports: GERD, other Obstetrical/Gynecological: reports: denies history Genitourinary: reports: dialysis, ESRD, kidney disease Musculoskeletal: reports: arthritis, chronic pain, spinal fracture Neurological: reports: CVA Psychiatric: reports: denies history Endocrine/Immune: reports: Diabetes, thyroid disorder Other Conditions: reports: denies history - PRIOR SURGERIES/PROCEDURES Surgical/Procedure History: reports: appendectomy, hysterectomy, other (bladder reconstrution) - IMMUNIZATION STATUS Childhood Immunizations: See Nurse Assessment Flu Vaccine: See Nurse Assessment - FAMILY HISTORY Family History: CAD over 55 yo, HTN, other (father AAA) - SOCIAL HISTORY Smoking: denies Substance Use: denies Physical Exam-General - PHYSICAL EXAM-ADULT Initial Vital Signs Reviewed: Yes - CONSTITUTIONAL General Appearance: alert - EYES Eyes: PERRL/EOMI - HEAD, EARS, NOSE, MOUTH & THROAT HENMT: normocephalic/atraumatic - NECK Neck: non-tender, supple - RESPIRATORY Respiratory: lungs clear, normal breath sounds - CARDIOVASCULAR Cardiovascular: regular rate, rhythm - GASTROINTESTINAL (ABDOMEN) Abdominal Exam: soft - MUSCULOSKELETAL Back Exam: no vertebral tenderness Progress - PLAN OF CARE/RESULTS Progress/Plan/Lab Results: Vital Signs - 8 hr 06/10/19 10:57 06/10/19 11:01 06/10/19 11:02 Temperature 98.1 F Pulse Rate 96 H 38 L Pulse Rate [Sitting] Pulse Rate [Standing] Pulse Rate [Supine] Respiratory Rate 18 17 Blood Pressure 85/59 85/59 Blood Pressure [Sitting] Blood Pressure [Standing] Blood Pressure [Supine] O2 Sat by Pulse Oximetry 99 100 98 06/10/19 11:06 06/10/19 11:09 06/10/19 11:11 Temperature Pulse Rate 189 H 97 H 98 H Pulse Rate [Sitting] Pulse Rate [Standing] Pulse Rate [Supine] Respiratory Rate 16 17 17 Blood Pressure 86/56 78/58 93/48 Blood Pressure [Sitting] Blood Pressure [Standing] Blood Pressure [Supine] O2 Sat by Pulse Oximetry 97 98 99 06/10/19 11:13 06/10/19 11:16 06/10/19 11:30 Temperature Pulse Rate 107 H 92 H Pulse Rate [Sitting] 97 H Pulse Rate [Standing] 109 H Pulse Rate [Supine] 89 Respiratory Rate 13 14 Blood Pressure 79/53 Blood Pressure [Sitting] 93/48 Blood Pressure [Standing] 79/53 Blood Pressure [Supine] 78/58 O2 Sat by Pulse Oximetry 100 99 06/10/19 11:47 06/10/19 12:00 06/10/19 12:01 Temperature Pulse Rate 90 89 90 Pulse Rate [Sitting] Pulse Rate [Standing] Pulse Rate [Supine] Respiratory Rate 15 17 16 Blood Pressure 109/64 126/70 Blood Pressure [Sitting] Blood Pressure [Standing] Blood Pressure [Supine] O2 Sat by Pulse Oximetry 100 100 100 06/10/19 12:16 06/10/19 12:30 06/10/19 12:31 Temperature Pulse Rate 85 85 85 Pulse Rate [Sitting] Pulse Rate [Standing] Pulse Rate [Supine] Respiratory Rate 20 11 L 15 Blood Pressure 115/67 128/85 Blood Pressure [Sitting] Blood Pressure [Standing] Blood Pressure [Supine] O2 Sat by Pulse Oximetry 100 100 100 06/10/19 12:47 06/10/19 12:48 06/10/19 13:00 Temperature Pulse Rate 81 82 82 Pulse Rate [Sitting] Pulse Rate [Standing] Pulse Rate [Supine] Respiratory Rate 18 15 12 Blood Pressure 111/71 Blood Pressure [Sitting] Blood Pressure [Standing] Blood Pressure [Supine] O2 Sat by Pulse Oximetry 100 100 100 06/10/19 13:01 06/10/19 13:07 06/10/19 13:09 Temperature Pulse Rate 81 84 83 Pulse Rate [Sitting] Pulse Rate [Standing] Pulse Rate [Supine] Respiratory Rate 14 16 15 Blood Pressure 143/81 128/79 116/69 Blood Pressure [Sitting] Blood Pressure [Standing] Blood Pressure [Supine] O2 Sat by Pulse Oximetry 100 96 100 06/10/19 13:10 06/10/19 13:13 06/10/19 13:17 Temperature Pulse Rate 94 H 79 Pulse Rate [Sitting] 80 Pulse Rate [Standing] 93 H Pulse Rate [Supine] 78 Respiratory Rate 32 H 22 Blood Pressure 70/50 121/93 Blood Pressure [Sitting] 116/69 Blood Pressure [Standing] 70/50 Blood Pressure [Supine] 128/79 O2 Sat by Pulse Oximetry 92 L 100 06/10/19 13:31 06/10/19 13:46 06/10/19 14:00 Temperature Pulse Rate 85 86 81 Pulse Rate [Sitting] Pulse Rate [Standing] Pulse Rate [Supine] Respiratory Rate 24 16 17 Blood Pressure 138/110 131/81 Blood Pressure [Sitting] Blood Pressure [Standing] Blood Pressure [Supine] O2 Sat by Pulse Oximetry 100 100 100 06/10/19 14:01 06/10/19 14:16 06/10/19 14:31 Temperature Pulse Rate 81 83 83 Pulse Rate [Sitting] Pulse Rate [Standing] Pulse Rate [Supine] Respiratory Rate 17 15 23 Blood Pressure 129/79 124/73 118/91 Blood Pressure [Sitting] Blood Pressure [Standing] Blood Pressure [Supine] O2 Sat by Pulse Oximetry 100 100 100 Laboratory Results - last 24 hr 06/10/19 06/10/19 06/10/19 11:22 11:29 11:29 WBC 9.59 RBC 3.97 L Hgb 12.7 Hct 38.5 MCV 97.0 MCH 32.0 H MCHC 33.0 RDW Std Deviation 15.7 H Plt Count 129 L MPV 9.9 Neut % (Auto) 84.7 H Lymph % (Auto) 7.6 L [place] % (Auto) 5.6 Eos % (Auto) 1.7 Baso % (Auto) 0.4 Neut # (Auto) 8.12 H Lymph # (Auto) 0.73 L [place] # (Auto) 0.54 Eos # (Auto) 0.16 Baso # (Auto) 0.04 PT INR PTT (Actin FS) Sodium 139 Potassium 5.2 H Chloride 93 L Carbon Dioxide 32 Anion Gap 14 BUN 18 Creatinine 3.6 H Estimated GFR/1.73 m2 12 BUN/Creatinine Ratio 5 Glucose 114 H POC Glucose 114 H Calculated Osmolality 280 Calcium 8.7 L Total Bilirubin 0.54 AST 45 H ALT 44 H Alkaline Phosphatase 109 H Troponin T Total Protein 7.1 Albumin 4.2 Globulin 2.9 Albumin/Globulin Ratio 1.4 06/10/19 06/10/19 11:29 11:29 WBC RBC Hgb Hct MCV MCH MCHC RDW Std Deviation Plt Count MPV Neut % (Auto) Lymph % (Auto) [place] % (Auto) Eos % (Auto) Baso % (Auto) Neut # (Auto) Lymph # (Auto) [place] # (Auto) Eos # (Auto) Baso # (Auto) PT 13.9 INR 1.06 PTT (Actin FS) 28.0 Sodium Potassium Chloride Carbon Dioxide Anion Gap BUN Creatinine Estimated GFR/1.73 m2 BUN/Creatinine Ratio Glucose POC Glucose Calculated Osmolality Calcium Total Bilirubin AST ALT Alkaline Phosphatase Troponin T 0.014 Total Protein Albumin Globulin Albumin/Globulin Ratio Orders Category Date Time Status Admit - [facility] Routine AdmDCTranf 06/10/19 14:40 Active Activity - Up with Assistance ORDERED Care 06/10/19 14:40 Active Cardiac Monitoring DIRECTED Care 06/10/19 11:26 Completed FALL Precautions NOW Care 06/10/19 14:40 Active Finger Stick Blood Sugar (ED) DIRECTED Care 06/10/19 11:26 Completed Intake and Output-Strict ORDERED Care 06/10/19 14:40 Active Nursing- MD Consult Request ROUTINE Care 06/10/19 14:40 Active Orthostatic [Orthostatic Vital Signs] Q 4-HR ASSESS Care 06/10/19 14:40 Completed Saline Loc NOW Care 06/10/19 11:26 Active Vital Signs Order Q 4-HR ASSESS Care 06/10/19 14:40 Active Z-Document. for Tele Applied ORDERED Care 06/10/19 14:40 Active Case Management Consult Routine Cons 06/10/19 13:10 Active Case Management Consult Routine Cons 06/10/19 13:11 Active Physician/Provider Consults Routine Cons 06/10/19 14:40 Ordered Social Service Consult Routine Cons 06/10/19 14:40 Active Renal Diet Diet 06/10/19 14:41 Active CHEST-PORTABLE [RAD] Routine Exams 06/11/19 06:00 Ordered CHEST-PORTABLE [RAD] Stat Exams 06/10/19 11:26 Completed CBC WITH DIFF [HEME] Routine Lab 06/11/19 06:00 Uncollected CBC WITH ELECTRONIC DIFF [HEME] Stat Lab 06/10/19 11:29 Completed COMPREHENSIVE METABOLIC PANEL [CHEM] Routine Lab 06/11/19 06:00 Uncollected COMPREHENSIVE METABOLIC PANEL [CHEM] Stat Lab 06/10/19 11:29 Completed MAGNESIUM [CHEM] Routine Lab 06/11/19 06:00 Uncollected PROTIME WITH INR [COAG] Stat Lab 06/10/19 11:29 Completed PTT [COAG] Stat Lab 06/10/19 11:29 Completed TROPONIN T Stat Lab 06/10/19 11:29 Completed TSH Routine Lab 06/11/19 06:00 Uncollected UA [URINALYSIS] [URINALYSIS] Stat Lab 06/10/19 16:34 Completed URINE CULTURE [RM] Routine Lab 06/10/19 16:34 Received 0.9% Sodium Chloride Inj [Ns] 500 ml Med 06/10/19 11:12 Discontinued IV 999 mls/hr Allopurinol [Zyloprim] Med 06/11/19 09:00 Active 100 mg PO DAILY Docusate Sodium [Colace] Med 06/10/19 14:40 Active 100 mg PO DAILY PRN PRN Fluticasone 50 Mcg Nasal Ethan [Flonase] Med 06/11/19 09:00 Active 2 spray ARYAN DAILY Fluticasone/Salmet 250/50 INH [Advair 250/50 Diskus] Med 06/10/19 19:30 Active 1 puff INH RTBID Insulin Glargine [Lantus Insulin] Med 06/11/19 09:00 Active 50 unit SUBQ DAILY Insulin Lispro [Humalog] Med 06/10/19 16:00 Active See Protocol SUBQ 0700,1100,1600,2100 Levothyroxine [Synthroid] Med 06/11/19 07:00 Active 50 microgm PO ACB Montelukast [Singulair] Med 06/11/19 09:00 Active 10 mg PO DAILY Ondansetron [Zofran] Med 06/10/19 14:40 Active 4 mg IV Q4H PRN PRN ROSUVAstatin [Crestor] Med 06/11/19 21:00 Active 20 mg PO HS Raloxifene [Evista] Med 06/11/19 09:00 Active 60 mg PO DAILY Solifenacin [Vesicare] Med 06/11/19 09:00 Active 5 mg PO DAILY Tramadol [Ultram] Med 06/10/19 14:40 Active 50 mg PO Q6H PRN PRN MDI Treatments Routine Oth 06/10/19 14:40 Active Telemetry [OM.EQ] Routine Oth 06/10/19 14:40 Active EKG [EKG] Stat Ther 06/10/19 11:26 Draft Transfer/Admit Order [TRANSFER] Routine Transfer 06/10/19 13:27 Completed Result Diagrams: 06/10/19 11:29 06/10/19 11:29 - REASSESSMENT Reassessment #1 Time Reassessed: 12:51 Status: improving (blood pressure improved and patient was alert and answered appropriately) - EKG 1 Time of EKG reading by physician:: 10:58 EKG Read and Signed by:: Karen Merlos EKG Interpretation (*Must complete 3 of following elements*): Abnormal (anterolateral infarct, age undetermined) Rate: 96 Rhythm: normal sinus rhythm [place]: left QRS: other (minimal voltage criteria, may be normal variant.) Comments: inferior infarct, age undetermined; - XRAY 1 XRAY Study: Chest Impression: See EMR Report ( EXAM: CHEST-PORTABLE HISTORY: syncope TECHNIQUE: Single view COMPARISON: 05/29/2019 FINDINGS: Poor inspiratory effort. The heart is not enlarged. The vessels are not distended. There are no i nfiltrates. No effusion identified. IMPRESSION: Negative exam. Electronically signed by Kevin Villarreal 06/10/2019 11:48 AM 06/10/19 1148 Interpreting Physician: Kevin Villarreal MD Dictated Date/Time: 06/10/19 1148 cc: Karen Merlos MD; Derian Dawn MD) - CONSULTS/PCP/HOSPITALIST Notification #1 *Consult/PCP/Hospitalist*: JED Herrmann for Hospitalist Time Discussed: 12:50 Reason/Comments: Dr. Merlos consulted with [facility] about patient. Consult Disposition: other ([facility] states patient does not meet admission criteria and the patient needs to follow up with PCP.) #2 Consult: JED Herrmann for Hospitalist Time Discussed: 13:15 Reason/Comments: Dr. Merlos consulted with [facility] about patient. Consult Disposition: Will see in ED, Admit Departure - Departure Date of Disposition Decision: 06/10/19 Time of Disposition Decision: 12:51 DIAGNOSIS: Syncope and collapse Disposition: ADMITTED INPATIENT 09 Certified Medical Emergency: Emergent Condition: Serious - Critical Care Note This patient required my direct & personal management of CC.: No Attestation - Physician/ JG Attestation Patient care was provided by Advanced Practice Provider:: No The physician spent face to face time with patient:: Yes Advanced Practice Provider documentation review:: Supervising physician onsite and consulted in the evaluation and care of this patient. The physician did have a face to face encounter with the patient. This chart was documented by the indicated scribe, (Karen Cochran Scribe) and accurately reflects the services I performed and decisions made by me, Karen Merlos MD, as attested by the provider's signature.
[2019-06-10] MEDS: ADVAIR 250/50 DISKUS INH SCH (19:59)
[2019-06-11 05:34] LABS: BASO# 0.06 X1000 (0.0-0.2); BASO% 0.8 % (0.0-0.8); EOS# 0.21 X1000 (0.0-0.7); EOS% 2.8 % (0.0-10.0); HEMOGLOBIN 11.1 g/dL (12.0-16.0); IMM GRAN# 0.05 X1000 (0.0-0.04); IMM GRAN% 0.7 % (0.0-0.5); LYMPH# 1.82 X1000 (1.2-3.4); LYMPH% 24.2 % (20.5-51.1); MCH 30.5 PG (27-31); MCHC 30.8 g/dL (33-37); MCV 98.9 FL (81-99); MONO# 0.74 X1000 (0.11-0.59); MONO% 9.8 % (1.7-9.3); MPV 10.2 FL (7.4-10.4); NEUT# 4.64 X1000 (1.4-6.5); NEUT% 61.7 % (42.2-75.2); PLT 100 X1000 (130-400); RBC 3.64 XMIL (4.2-5.4); RDW 15.7 % (11.5-14.5); WBC 7.52 X1000 (4.8-10.8)
[2019-06-11 05:57] LABS: ALB/GLOB RATIO 1.1; CALCIUM 7.8 mg/dL (8.8-10.2); CREATININE 5.3 mg/dL (0.5-0.9); MAGNESIUM 2.3 mg/dL (1.5-2.7); POTASSIUM 5.2 mmol/L (3.5-5.1); TOTAL BILIRUBIN 0.45 mg/dL (0.20-1.00); TOTAL PROTEIN 5.7 g/dL (6.3-8.3)
[2019-06-11] MEDS: HUMALOG SUBQ SCH ×4 (06:43→21:06)
[2019-06-11] MEDS: SYNTHROID PO SCH (06:43)
--- NOTE | 2019-06-11 06:59 | Diag Imaging Result Doc PS360 ---
EXAM: CHEST-PORTABLE 06/11/2019 HISTORY: follow up TECHNIQUE: AP portable at [id number] COMMENT: There is platelike opacity in the lingula which has not changed since 06/10/2019 and has diminished somewhat since 05/29/2019. Otherwise are has been no significant change. IMPRESSION: Lingular atelectasis. Electronically signed by Dylan Rey 06/11/2019 6:57 AM
[2019-06-11] MEDS: ADVAIR 250/50 DISKUS INH SCH ×2 (07:38→19:36)
[2019-06-11] MEDS: FLONASE NAS SCH (08:43)
[2019-06-11] MEDS: SINGULAIR PO SCH (08:44)
[2019-06-11] MEDS: LANTUS INSULIN SUBQ SCH (08:44)
[2019-06-11] MEDS: EVISTA PO SCH (08:44)
[2019-06-11] MEDS: VESICARE PO SCH (08:44)
[2019-06-11] MEDS: ZYLOPRIM PO SCH (08:44)
--- NOTE | 2019-06-11 12:56 | PROVIDER PROGRESS NOTE ---
Progress Note Chief complaint: Im weak. HPI: weakness and lethargic that started after she left early from rehab. Unable to get up and ambulated anymore. Wishes to get rehab again. Labs: WBC 7.52, hemoglobin 11.1, hematocrit 36.0, platelet count 100, sodium 135, potassium 5.2, chloride 94, carbon dioxide 23, BUN 31, creatinine 5.3, calcium 7.8, albumin 3.0. Urinalysis: protein 30, leukocytes large, WBC 20 Dash 40. Physical exam: temperature 97.4, pulse 68, respirations 18, blood pressure 111/51, O2 sat 100% on room air. General: Elderly white female lying in bed aroused to tactile stimuli. HEENT: atraumatic, normocephalic, pupils equal and reactive, mucous membranes moist, trachea midline. Skin: bronzed, warm and dry. Healing bruise and skin tear to left lower extremity. Neck: supple, no jvd observed. Cardiovascular: s1s2 regular rate and rhythm, no murmur or gallop. Respiratory: lungs clear bilaterally with equal air excursion. Abdomen: obese, soft, nontender, nondistended. Bowel sounds active : non inspected Extremities: left lower arm fistula in place with positive thrill and bruit Neurological: alert and oriented to person, place, and time. Assessment and plan: Chronic kidney disease stage 5D. Anemia. Hgb dropped from 12.7 to 11.1. Check occult stool. Blood pressure. In target. Hyperkalemia. Potassium 5.2 Acid base balance. Stable. Fluid volume. Euvolemic on exam. Medication review.
--- NOTE | 2019-06-11 21:00 | PROGRESS NOTE ---
DATE: 06/11/2019 SUBJECTIVE: Patient has no major complaints. OBJECTIVE: Blood pressure 98/48, heart rate of 88, respiratory rate 15, temperature 98 degrees, 98% on room air.Cardiovascular: Regular rate and rhythm. Pulmonary: Bilateral breath sounds. Clear to auscultation. Gastrointestinal: Soft, nontender, nondistended. Bowel sounds are positive. LABORATORY DATA: White count 7, hemoglobin and hematocrit 11 and 36, platelets of 100,000. Potassium is 5.2, creatinine 5.3. PROBLEM LIST: 1. Generalized weakness. She reports weakness is her main complaint with some possible orthostasis, which her blood pressure is on the low side, so we will need to be careful with her medications, although she is really not on any major hypertensives. 2. End-stage renal. She is on her current medications. She is on her current dialysis. She has had a history of urinary tract infection, but nothing has grown this time. I do not think we need to continue any antibiotics. DISPOSITION: I guess pending her clinical course, will see how she does with physical therapy. I am unsure if she is a long-term resident or not, and I will look at that. cc: Edli New MD
[2019-06-11] MEDS: CRESTOR PO SCH (21:06)
[2019-06-12 05:44] LABS: HEMOGLOBIN A1C 5.1 % (4.8-6.0)
[2019-06-12] MEDS ORDERED: NS 2,000 ML MISC PRN (06:15)
[2019-06-12] MEDS ORDERED: TIGHT: 0.2 ML/HR FOR DIALYSIS MISC PRN (06:15)
[2019-06-12] MEDS ORDERED: HEPARIN IV PRN (06:15)
[2019-06-12] MEDS: HUMALOG SUBQ SCH ×4 (06:19→21:06)
[2019-06-12] MEDS: SYNTHROID PO SCH (06:20)
[2019-06-12 07:01] LABS: CALCIUM 7.7 mg/dL (8.8-10.2); PHOSPHORUS 7.5 mg/dL (2.7-4.5); POTASSIUM 5.4 mmol/L (3.5-5.1)
[2019-06-12] MEDS: ADVAIR 250/50 DISKUS INH SCH ×2 (07:52→19:43)
[2019-06-12 07:55] LABS: BASO# 0.05 X1000 (0.0-0.2); BASO% 0.6 % (0.0-0.8); EOS# 0.24 X1000 (0.0-0.7); EOS% 2.8 % (0.0-10.0); HEMATOCRIT 29.8 % (37.0-47.0); HEMOGLOBIN 9.1 g/dL (12.0-16.0); IMM GRAN# 0.06 X1000 (0.0-0.04); IMM GRAN% 0.7 % (0.0-0.5); LYMPH# 1.63 X1000 (1.2-3.4); LYMPH% 18.8 % (20.5-51.1); MCH 29.8 PG (27-31); MCHC 30.5 g/dL (33-37); MCV 97.7 FL (81-99); MONO# 0.85 X1000 (0.11-0.59); MONO% 9.8 % (1.7-9.3); MPV 10.1 FL (7.4-10.4); NEUT# 5.84 X1000 (1.4-6.5); NEUT% 67.3 % (42.2-75.2); PLT 121 X1000 (130-400); RBC 3.05 XMIL (4.2-5.4); WBC 8.67 X1000 (4.8-10.8)
[2019-06-12] MEDS: LANTUS INSULIN SUBQ SCH (10:18)
[2019-06-12] MEDS: ZYLOPRIM PO SCH (10:19)
[2019-06-12] MEDS: SINGULAIR PO SCH (10:19)
[2019-06-12] MEDS: FLONASE NAS SCH (10:21)
[2019-06-12] MEDS: VESICARE PO SCH (10:35)
[2019-06-12] MEDS: EVISTA PO SCH (10:35)
[2019-06-12 12:26] LABS: HEMATOCRIT 30.2 % (37.0-47.0); HEMOGLOBIN 9.2 g/dL (12.0-16.0)
--- NOTE | 2019-06-12 15:07 | PROGRESS NOTE ---
DATE: 06/12/2019 SUBJECTIVE: The patient has no major complaints. OBJECTIVE: Vital Signs: Blood pressure is 128/52, heart rate 89, respiratory rate 18, temperature 98.8 degrees, saturating 99% on room air. Cardiovascular: Regular rate and rhythm. Pulmonary: Bilateral breath sounds. Clear to auscultation. GI: Soft, nontender, nondistended. Bowel sounds are positive. LABORATORY DATA: White count is 8, hemoglobin and hematocrit 9 and 30, platelets 121,000, which is a drop. BUN and creatinine 49 and 7, but she is getting dialyzed today. PROBLEM LIST: 1. Generalized weakness. She is still really unable to get up and around. I am not sure if her anemia may be contributing to this, but we will see. 2. End-stage renal. She is on dialysis Monday, Monday, Monday. Renal is following. 3. Progressive anemia. Unsure if we have checked her levels recently. May want to repeat those. 4. Type 2 diabetes. Will continue to monitor blood sugars. Overall they seem to be well controlled. cc: Edil New MD
[2019-06-12] MEDS: CRESTOR PO SCH (21:02)
--- NOTE | 2019-06-12 21:35 | NEPHROLOGY PROGRESS NOTE ---
DATE: 06/12/2019 SUBJECTIVE: She is feeling better. Eating well. Working with therapy. OBJECTIVE: Vital signs: Blood pressure 126/66, heart rate 83, afebrile. General: No acute distress. Skin: Warm and dry. Eyes: Conjunctivae are pink. Neck: Neck veins are not distended. Cardiovascular: Heart is regular. Lungs: Equal. No crackles. Abdomen: Soft, nontender. Bowel sounds present. Extremities: Minimal edema. IMPRESSION: 1. Chronic kidney disease 5D. She will have her routine hemodialysis treatment today using a 2K bath. Goal of 2 to 3 L ultrafiltration. 2. Mild hyperkalemia and hyponatremia. That will be addressed with dialysis. 3. Anemia. Hemoglobin has fallen from 12.7 on presentation to 9.1. Repeat during dialysis today 9.2. Observe. cc: Perry El MD
[2019-06-13 05:24] LABS: BASO# 0.03 X1000 (0.0-0.2); BASO% 0.6 % (0.0-0.8); EOS# 0.18 X1000 (0.0-0.7); EOS% 3.5 % (0.0-10.0); HEMATOCRIT 30.8 % (37.0-47.0); HEMOGLOBIN 9.2 g/dL (12.0-16.0); IMM GRAN# 0.04 X1000 (0.0-0.04); IMM GRAN% 0.8 % (0.0-0.5); LYMPH# 1.21 X1000 (1.2-3.4); LYMPH% 23.7 % (20.5-51.1); MCH 29.6 PG (27-31); MCHC 29.9 g/dL (33-37); MONO# 0.57 X1000 (0.11-0.59); MONO% 11.2 % (1.7-9.3); MPV 9.8 FL (7.4-10.4); NEUT# 3.07 X1000 (1.4-6.5); NEUT% 60.2 % (42.2-75.2); PLT 114 X1000 (130-400); RBC 3.11 XMIL (4.2-5.4); RDW 15.2 % (11.5-14.5)
[2019-06-13 05:47] LABS: CALCIUM 7.7 mg/dL (8.8-10.2); CREATININE 5.1 mg/dL (0.5-0.9); POTASSIUM 4.5 mmol/L (3.5-5.1)
[2019-06-13] MEDS: SYNTHROID PO SCH (06:12)
[2019-06-13] MEDS: HUMALOG SUBQ SCH ×4 (06:12→20:10)
[2019-06-13] MEDS: ADVAIR 250/50 DISKUS INH SCH ×2 (07:54→19:30)
[2019-06-13] MEDS: LANTUS INSULIN SUBQ SCH (10:09)
[2019-06-13] MEDS: SINGULAIR PO SCH (10:10)
[2019-06-13] MEDS: FLONASE NAS SCH (10:10)
[2019-06-13] MEDS: EVISTA PO SCH (10:11)
[2019-06-13] MEDS: VESICARE PO SCH (10:11)
[2019-06-13] MEDS: ZYLOPRIM PO SCH (10:15)
--- NOTE | 2019-06-13 13:38 | PROVIDER PROGRESS NOTE ---
Progress Note Subjective: Voices feeling well with no uremic complaints Objective: temperature 97.7, pulse 80, respirations 18, blood pressure 109/53, 02 sat 99% on room air. General: Elderly white female lying in bed aroused to verbal stimuli. HEENT: atraumatic, normocephalic, pupils equal and reactive, mucous membranes moist, trachea midline. Skin: bronzed, warm and dry. Healing bruise and skin tear to left lower extremity. Neck: supple, 6 cm jvd observed. Cardiovascular: s1s2 regular rate and rhythm, no murmur or gallop. Respiratory: lungs clear bilaterally with equal excursion. Abdomen: obese, soft, nontender, nondistended. Bowel sounds active : non inspected Extremities: left lower arm fistula in place with positive thrill and bruit Neurological: alert and oriented to person, place, and time. Labs: WBC 5.10, hemoglobin 9.2, hematocrit 30.8, platelet count 114, sodium 136, potassium 4.5, chloride 97, carbon dioxide 25, anion gap 14, BUN 30, creatinine 5.1. Intake 480, output 1690. Impression: Chronic kidney disease stage 5D. She had her routine hemodialysis treatment yesterday with no changes. Anemia. Low, does not meet transfusion criteria. Awaiting occult stool sample. Blood pressure. In target. Acid base balance and electrolytes. Will be corrected with hemodialysis today Fluid volume. Euvolemic on exam Nutrition. Adequate. Ambulation. Therapy in place. Awaiting rehab placement. Medication review. No changes.
--- NOTE | 2019-06-13 19:23 | PROGRESS NOTE ---
DATE: 06/13/2019 SUBJECTIVE: Patient reports feeling okay. Denies any fever or chills. OBJECTIVE: Vital Signs: Temperature 98.6 degrees, heart rate 88, respiratory rate 18, blood pressure 126/63, O2 saturation 99% on room air. General: This is a chronically ill-appearing, 78- year-old female, lying in bed, in no acute distress. Cardiovascular: S1, S2 heard. No murmurs, gallops, or rubs. Regular rate and rhythm. Respiratory: Clear bilaterally to auscultation. No work of breathing or using accessory muscles. Abdomen: Soft. Nontender to palpation. Bowel sounds present. No organomegaly. Extremities: No clubbing, cyanosis, or edema. Peripheral pulses present in both legs. Neurological: Patient alert, oriented x3. Moves all 4 extremities. LABORATORY DATA: Reviewed. ASSESSMENT AND PLAN: 1. End-stage renal disease, on dialysis. We will continue with routine dialysis. Dr. El is following this patient. 2. Anemia of chronic disease. Hemoglobin is stable. Today, the hemoglobin is 9.2. We will continue to monitor. 3. Diabetes mellitus type 2. We will continue to use his sliding scale insulin and Accu-Chek before meals and also at bedtime. 4. Disposition. The patient is awaiting a rehabilitation bed at [facility]. We were informed that will be tomorrow. We will continue to follow. cc: Jose Ruth MD
[2019-06-13] MEDS: CRESTOR PO SCH (20:06)
[2019-06-13] MEDS ORDERED: LANTUS INSULIN SUBQ SCH (21:00)
[2019-06-14] MEDS: HUMALOG SUBQ SCH ×2 (06:08→11:27)
[2019-06-14] MEDS: SYNTHROID PO SCH (06:10)
[2019-06-14] MEDS ORDERED: HEPARIN IV PRN (06:37)
[2019-06-14] MEDS ORDERED: TIGHT: 0.2 ML/HR FOR DIALYSIS MISC PRN (06:37)
[2019-06-14] MEDS ORDERED: NS 2,000 ML MISC PRN (06:37)
[2019-06-14] MEDS: ADVAIR 250/50 DISKUS INH SCH (07:51)
[2019-06-14] MEDS: FLONASE NAS SCH (10:45)
[2019-06-14] MEDS: ZYLOPRIM PO SCH (11:38)
[2019-06-14] MEDS: EVISTA PO SCH (11:38)
[2019-06-14] MEDS: VESICARE PO SCH (11:39)
[2019-06-14] MEDS: SINGULAIR PO SCH (11:39)
[2019-06-14 12:36] VITALS: BP 117/62
--- NOTE | 2019-06-14 12:46 | DISCHARGE SUMMARY ---
ADMISSION DATE: 06/10/2019 DISCHARGE DATE: 06/14/2019 PRIMARY CARE PROVIDER: Dr. Derian Dawn. PERTINENT PROCEDURES: Chest x-ray: No infiltrates, no effusions. DISCHARGE DIAGNOSES: 1. Orthostasis, resolved. 2. Generalized weakness and deconditioning. 3. End-stage renal disease on hemodialysis with Dr. El. HOSPITAL COURSE: Briefly, Ms. Robles is an 78-year-old female, who on the day of her admission had received hemodialysis, was feeling very weak, had went home, was not able to walk, felt very lethargic, came to the ED to be evaluated. She was hypotensive. They gave her some of her fluid back. Initially her blood pressures responded well. However, she did become orthostatic and remained weak and lethargic. Hospitalist Service was called for admission. Dr. El was brought on board. The patient remained on her regular scheduled hemodialysis. Electrolyte imbalances were addressed with each dialysis session. Her anemia was low, but stable. We have asked PT for evaluation. They felt she would benefit from skilled facility with physical therapy. VITAL SIGNS: At time of discharge, temperature is 98.3 degrees, heart rate 85, respirations 16, blood pressure 116/61, O2 is 100% on room air. DISCHARGE DIET: Renal. DISCHARGE MEDICATIONS: 1. Advair 250 mg inhaled b.i.d. 2. Allopurinol 100 mg p.o. daily. 3. Coreg 2.5 mg p.o. at bedtime. 4. Crestor 20 mg p.o. daily. 5. Flonase 2 sprays nasal daily. 6. Lantus 50 units subcutaneous daily. 7. MiraLAX 17 g p.o. at bedtime. 8. Singulair 10 mg p.o. daily. 9. VESIcare 5 mg p.o. daily. 10. Colace 100 mg p.o. daily p.r.n. 11. Levofloxacin 250 mg p.o. daily; disregard as this is an old prescription. 12. Levothyroxine 50 mcg p.o. before meals. 13. Ultram 50 mg p.o. q. 6 hours p.r.n. 14. Zofran 4 mg p.o. t.i.d. p.r.n. 15. Lozol 2.5 mg p.o. daily. Further recommendations to follow. Ms. Robles is being discharged to [facility] where she will continue with physical therapy. She will continue on her regular scheduled hemodialysis per Dr. El. She is to take all medications as prescribed. She can follow up with her PCP after rehab. Dictated by [facility] for Jose Ruth MD Addendum: Patient seen and examined by myself. Agree with J[facility] note. It reflects my assessment and plan. Patient is being discharged in stable condition. Patient is going to rehab. cc: Jose Ruth MD MTDD
--- NOTE | 2019-06-14 20:07 | NEPHROLOGY PROGRESS NOTE ---
DATE: 06/14/2019 SUBJECTIVE: She is lying in bed but states that she is working with therapy. Anticipating transfer to rehab today if possible. OBJECTIVE: Vital Signs: Blood pressure 116/61, heart rate 85, respirations 16, afebrile. General: No acute distress. Skin: Warm and dry. Neck: Veins are not appreciated. Heart: Regular. No gallops or tachycardia. Lungs: Equal. No crackles. Abdomen: Obese, soft, nontender. Bowel sounds present. Extremities: No clubbing, cyanosis, or edema. Neurologic Exam: With resting tremor. IMPRESSION: 1. Chronic kidney disease 5D. She will have her next routine hemodialysis treatment today using her outpatient dialysis parameters. Electrolytes/acid base in target. 2. Anemia. Hemoglobin dropped from 12.7 on presentation to 9.1. Stable at that level over the last 48 hours. Stool guaiac is pending. 3. Rehab placement. cc: Perry El MD
== END 2019-06-14 18:40 | DRG 312 ==
LOC: SUPCPDRO → ED 10:37 → SUATTDRO 14:32 → EDIPHOLD 14:32 → 1N 17:20
PROVIDERS: ATTEND Internal Medicine